=== PATIENT | female | born 1985 | race Hispanic/Latino ===

== ENCOUNTER 2024-07-09 13:14 | Outpatient (CLI) | payer OTHER, SELFPAY ==
--- NOTE | ~2024-07-09 | MMUS_ITS ---
EXAMINATION: MM diagnostic vance BI w daxa, US breast LT limited HISTORY: Breast pain TECHNIQUE: Additional 3-D tomosynthesis images of the breasts were performed and synthetic 2-D images were generated. CAD analysis was submitted and interpreted. High resolution Limited left breast ultr asound was performed. COMPARISON: None BREAST PARENCHYMAL COMPOSITION: Not dense: There are scattered areas of fibroglandular density. FINDINGS: MAMMOGRAPHIC FINDINGS: There is no mammographic evidence for malignancy in the right breast. There is a focal asymmetry in t he upper inner quadrant of the left breast, posterior third. ULTRASOUND: Limited left breast ultrasound: Normal heterogeneous echotexture without focal mass. No corresponding abnormality to the mammographic finding. IMPRESSION: 1. Focal left breast asymmetry upper inner quadrant of the left breast, posterior third. No sonograph ic correlate. This is likely benign focal asymmetric fibroglandular tissue or intramammary lymph node . 2. Recommend 6 month follow-up diagnostic left mammogram BI-RADS category 3, probably benign findings. Reviewed, dictated and finalized at location [facility] OUT CLERK AND SHELF STOCKER IMPRESSION: 1. Focal left breast asymmetry upper inner quadrant of the left breast, posteri or third. No sonographic correlate. This is likely benign focal asymmetric fibr oglandular tissue or intramammary lymph node. 2. Recommend 6 month follow-up diagnostic left mammogram BI-RADS category 3, probably benign findings.
--- OUTSIDE RECORDS SUMMARY | 2024-07-09 15:47 | XMS_ITS | Data Portability ---
Author Organization [facility] Address [address] [place] [address] Care Team Providers Care Butt Trimmer Name Role Phone GEENA CAMACHO Primary Care Provider [phone] Assessment No assessment recorded. Plan of Treatment Reminders Order Date Submit Date Provider Last Modified By Organization Details Last Modified Time Details Appointments ANY 15 2024 01:00P M DOMINGA LEOS Not available Not available Not available NEW PATIEN T 30 2024 10:45A M Bryn Meza MD Not available Not available Not available Lab C reacti ve protei n, QN, serum or plasma 2023 024 [facility], [address] [place] [address], [address], [place], [address], 05/10/2024 02:08:22 EMILY (antin uclear antibo dies) screen , serum 2023 024 [facility], [address] [place] [address], [address], [place], [address], 05/10/2024 02:08:19 erythr ocyte sedime ntatio n rate by zoë gren method 2023 024 [facility], [address] [place] [address], [address], [place], [address], 05/10/2024 02:08:21 CBC w/ auto diff 2023 024 [facility] SOTO, [address], [address], [place], [address], 05/08/2024 22:07:08 cultur e, urine 2023 024 [facility], [address], [address], [place], [address], 05/10/2024 02:08:22 urinal ysis, dipsti ck 2023 024 KEELY In-Office Order, Internal Use Only DO Not Attach Compendium DO Not Attach Compendium, Do Not Delete/merge, [id number] 05/07/2024 15:13:11 vitami n B12 + folate , serum or blood 2023 024 KEELY YOSTHAYDER, [address], [address], [place], [address], 04/11/2024 10:15:01 magnes ium, serum or plasma 2023 024 KEELY AMINCASSIE, [address], [address], [place], [address], 04/11/2024 08:31:26 vitami n D, 25-hyd sailaja, total, serum 2023 024 [facility], [facility] [address], [address], [place], [address], 04/11/2024 10:15:06 iron + total iron-b inding capaci ty (TIBC) , serum 2023 024 KEELY YOSTHAYDER, [address], [address], [place], [address], 04/11/2024 10:15:03 CBC w/ auto diff 2023 024 [facility], [address], [address], [place], [address], 04/11/2024 08:31:27 CMP, serum or plasma 2023 024 [facility], [address] [facility] [address], [address], [place], [address], 04/11/2024 08:31:24 TSH, ultra- sensit michael, serum 2023 024 [facility], [address] [facility] [address], [address], [place], [address], 04/11/2024 10:15:00 HbA1c (hemog lobin A1c), blood 2023 024 [facility], [address] [facility], [address], [place], [address], 04/11/2024 10:15:04 lipid panel, serum 2023 024 [facility], [address] [facility], [address], [place], [address], 04/11/2024 08:31:23 Referral breast center referr al 2024 025 Cody Rosas MD, [address] [facility], [address], [place], [address], 07/03/2024 15:26:[address] referr al - + EMILY, pain on R tempor al, recent miscar riage, + micros copic hematu [place] 2023 024 [email or web address] [facility] (Rheumatology ), [address], [place], [address], 05/24/2024 07:39:39 Procedures None record ed. Surgeries None record ed. Imaging MRI, brain, w/o contra st [address] ([facility]), [address] [place] [address] [address], [place], [address], 06/05/2024 08:01:53 Medication Orders clonaz epam 0.5 mg tablet 2023 [facility], [address] [place] [address], [address], 05/07/2024 19:32:44 Refres h Lacri- Lube 56.8 %-42.5 % eye ointme nt 2023 [facility], [address] [place] [address], [address], 04/18/2024 12:41:06 Patient TargetsNo targets recorded. Patient Instructions Encounter Date Encounter Id Patient Instructions Last Modified By Organization Details Last Modified Time 04/10/2024 [id number] A healthy lifestyle: care instructions [email or web address] Not available 04/10/2024 10:23:04 04/12/2024 [id number] Order Lubricant oint to left eye Use Naprosyn for pain May need CT of Orbits and sinuses May need ENT consult [email or web address] Not available 04/12/2024 14:09:10 04/24/2024 [id number] Refresh PM, 2-3 timed a day IF headaches recurs frequently go to PCP for further evaluation [email or web address] Not available 04/24/2024 15:38:31 06/18/2024 [id number] A healthy lifestyle: care instructions [email or web address] Not available 06/18/2024 14:51:37 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 for Referral 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 Referral for Anti-nuclear factor detected + EMILY, pain on R temporal, recent miscarriage, + microscopic hematuria Referring Physician: Geena Camacho, Tool Trouble Shooter, Encounter Date: 05/07/2024 Breast Center Referral for M astodynia of bilateral breasts Referring Physician: Luther Wood, TRANSPORT PILOT, Encounter Date: 06/18/2024 Results Created Date Observation Date Name Description Value Unit Range Abnormal Flag Note LastModifiedBy Organization Detail LastModifiedTime 04/10/20 24 04/11/2024 LIPID PANEL cholesterol, total 163 mg/dL 100-19 9 Not Available [facility] ([facility]) [address] [facility] [place], [address], 04/11/2024 08:31:23 04/10/20 24 04/11/2024 LIPID PANEL triglyceride s 125 mg/dL 0-149 Not Available [facility] ([facility]) [address] [facility] [place], [address], 04/11/2024 08:31:23 04/10/20 24 04/11/2024 LIPID PANEL HDL cholesterol 28 mg/dL >39 below low normal Not Available [facility] ([facility]) [address] [place], [address], 04/11/2024 08:31:23 04/10/20 24 04/11/2024 LIPID PANEL VLDL cholesterol loren 23 mg/dL 5-40 Not Available [facility] ([facility]) [address] [place], [address], 04/11/2024 08:31:23 04/10/20 24 04/11/2024 LIPID PANEL LDL chol calc ([facility]) 112 mg/dL 0-99 above high normal Not Available [facility] ([facility]) [address] [place], [address], 04/11/2024 08:31:23 04/10/20 24 04/11/2024 COMP. METAB OLIC PANEL (14) glucose 88 mg/dL 70-99 Not Available [facility] ([facility]) [address] [place], [address], 04/11/2024 08:31:24 04/10/20 24 04/11/2024 COMP. METAB OLIC PANEL (14) BUN 9 mg/dL 6-20 Not Available [facility] ([facility]) [address] [place], [address], 04/11/2024 08:31:24 04/10/20 24 04/11/2024 COMP. METAB OLIC PANEL (14) creatinine 0.45 mg/dL 0.57-1 .00 below low normal Not Available [facility] ([facility]) [address] [facility] [place], [address], 04/11/2024 08:31:24 04/10/20 24 04/11/2024 COMP. METAB OLIC PANEL (14) eGFR 127 mL/mi n/1.7 3 >59 Not Available [facility] ([facility]) [address] [facility] [place], [address], 04/11/2024 08:31:24 04/10/20 24 04/11/2024 COMP. METAB OLIC PANEL (14) BUN/creatini ne ratio 09 02- Not Available [facility] ([facility]) [address] [facility] [place], [address], 04/11/2024 08:31:24 04/10/20 24 04/11/2024 COMP. METAB OLIC PANEL (14) sodium 137 mmol/ L 134-14 4 Not Available [facility] ([facility]) [address] [facility] [place], [address], 04/11/2024 08:31:24 04/10/20 24 04/11/2024 COMP. METAB OLIC PANEL (14) potassium 4.2 mmol/ L 3.5-5. 2 Not Available [facility] ([facility]) [address] [facility] [place], [address], 04/11/2024 08:31:24 04/10/20 24 04/11/2024 COMP. METAB OLIC PANEL (14) chloride 103 mmol/ L 96-106 Not Available [facility] ([facility]) [address] [facility] [place], [address], 04/11/2024 08:31:24 04/10/20 24 04/11/2024 COMP. METAB OLIC PANEL (14) carbon dioxide, total 19 mmol/ L 20-29 below low normal Not Available [facility] ([facility]) [address] [place], [address], 04/11/2024 08:31:24 04/10/20 24 04/11/2024 COMP. METAB OLIC PANEL (14) calcium 9.2 mg/dL 8.7-10 .2 Not Available [facility] ([facility]) [address] [place], [address], 04/11/2024 08:31:24 04/10/20 24 04/11/2024 COMP. METAB OLIC PANEL (14) protein, total 7.6 g/dL 6.0-8. 5 Not Available [facility] ([facility]) [address] [place], [address], 04/11/2024 08:31:24 04/10/20 24 04/11/2024 COMP. METAB OLIC PANEL (14) albumin 4.3 g/dL 3.9-4. 9 Not Available [facility] ([facility]) [address] [place], [address], 04/11/2024 08:31:24 04/10/20 24 04/11/2024 COMP. METAB OLIC PANEL (14) globulin, total 3.3 g/dL 1.5-4. 5 Not Available [facility] ([facility]) [address] [facility] [place], [address], 04/11/2024 08:31:24 04/10/20 24 04/11/2024 COMP. METAB OLIC PANEL (14) bilirubin, total 0.2 mg/dL 0.0-1. 2 Not Available [facility] ([facility]) [address] [facility] [place], [address], 04/11/2024 08:31:24 04/10/20 24 04/11/2024 COMP. METAB OLIC PANEL (14) alkaline phosphatase 75 IU/L 44-121 Not Available [facility]) [address] [facility] [place], [address], 04/11/2024 08:31:24 04/10/20 24 04/11/2024 COMP. METAB OLIC PANEL (14) AST (SGOT) 16 IU/L 0-40 Not Available [facility] ([facility]) [address] [facility] [place], [address], 04/11/2024 08:31:24 04/10/20 24 04/11/2024 COMP. METAB OLIC PANEL (14) ALT (SGPT) 21 IU/L 0-32 Not Available [facility] ([facility]) [address] [facility] [place], [address], 04/11/2024 08:31:24 04/10/20 24 04/11/2024 MAGNE SIUM magnesium 2.0 mg/dL 1.6-2. 3 Not Available [facility] ([facility]) [address] [place], [address], 04/11/2024 08:31:26 04/10/20 24 04/11/2024 CBC WITH DIFFE RENTI AL/PL ATELE T WBC 13.7 x10e3 /uL 3.4-10 .8 above high normal Eff ectiv e Decem rickey 2023 [place] [id number] 5 WBC will be made* * non-o rdera ble as a stand -cindy e order code. Not Available [facility] ([facility]) [address] [place], [address], 04/11/2024 08:31:27 04/10/20 24 04/11/2024 CBC WITH DIFFE RENTI AL/PL ATELE T RBC 4.63 x10e6 /uL 3.77-5 .28 Not Available [facility] ([facility]) [address] [place], [address], 04/11/2024 08:31:27 04/10/20 24 04/11/2024 CBC WITH DIFFE RENTI AL/PL ATELE T hemoglobin 13.5 g/dL 11.1-1 5.9 Not Available [facility] ([facility]) [address] [facility], [place], [address], 04/11/2024 08:31:27 04/10/20 24 04/11/2024 CBC WITH DIFFE RENTI AL/PL ATELE T hematocrit 42.1 % 34.0-4 6.6 Not Available [facility] ([facility]) [address] [place], [address], 04/11/2024 08:31:27 04/10/20 24 04/11/2024 CBC WITH DIFFE RENTI AL/PL ATELE T MCV 91 fL 79-97 Not Available [facility] ([facility]) [address] [facility], [place], [address], 04/11/2024 08:31:27 04/10/20 24 04/11/2024 CBC WITH DIFFE RENTI AL/PL ATELE T MCH 29.2 pg 26.6-3 3.0 Not Available [facility] ([facility]) [address] [place], [address], 04/11/2024 08:31:27 04/10/20 24 04/11/2024 CBC WITH DIFFE RENTI AL/PL ATELE T MCHC 32.1 g/dL 31.5-3 5.7 Not Available [facility] ([facility]) [address] [place], [address], 04/11/2024 08:31:27 04/10/20 24 04/11/2024 CBC WITH DIFFE RENTI AL/PL ATELE T RDW 12.3 % 11.7-1 5.4 Not Available [facility] ([facility]) [address] [place], [address], 04/11/2024 08:31:27 04/10/20 24 04/11/2024 CBC WITH DIFFE RENTI AL/PL ATELE T platelets 401 x10e3 /uL 150-45 0 Not Available [facility] ([facility]) [address] [facility], [place], [address], 04/11/2024 08:31:27 04/10/20 24 04/11/2024 CBC WITH DIFFE RENTI AL/PL ATELE T neutrophils 74 % notest ab. Not Available [facility] ([facility]) [address] [facility], [place], [address], 04/11/2024 08:31:27 04/10/20 24 04/11/2024 CBC WITH DIFFE RENTI AL/PL ATELE T lymphs 20 % notest ab. Not Available [facility] ([facility]) [address] [facility], [place], [address], 04/11/2024 08:31:27 04/10/20 24 04/11/2024 CBC WITH DIFFE RENTI AL/PL ATELE T monocytes 5 % notest ab. Not Available [facility] ([facility]) [address] [facility], [place], [address], 04/11/2024 08:31:27 04/10/20 24 04/11/2024 CBC WITH DIFFE RENTI AL/PL ATELE T eos 1 % notest ab. Not Available [facility] ([facility]) [address] [facility], [place], [address], 04/11/2024 08:31:27 04/10/20 24 04/11/2024 CBC WITH DIFFE RENTI AL/PL ATELE T basos 0 % notest ab. Not Available [facility] ([facility]) [address] [facility], [place], [address], 04/11/2024 08:31:27 04/10/20 24 04/11/2024 CBC WITH DIFFE RENTI AL/PL ATELE T neutrophils (absolute) 10.0 x10e3 /uL 1.4-7. 0 above high normal Not Available [facility] ([facility]) [address] [place], [address], 04/11/2024 08:31:27 04/10/20 24 04/11/2024 CBC WITH DIFFE RENTI AL/PL ATELE T lymphs (absolute) 2.8 x10e3 /uL 0.7-3. 1 Not Available [facility] ([facility]) [address] [place], [address], 04/11/2024 08:31:27 04/10/20 24 04/11/2024 CBC WITH DIFFE RENTI AL/PL ATELE T monocytes(ab solute) 0.7 x10e3 /uL 0.1-0. 9 Not Available [facility] ([facility]) [address] [place], [address], 04/11/2024 08:31:27 04/10/20 24 04/11/2024 CBC WITH DIFFE RENTI AL/PL ATELE T eos (absolute) 0.2 x10e3 /uL 0.0-0. 4 Not Available [facility] ([facility]) [address] [place], [address], 04/11/2024 08:31:27 04/10/20 24 04/11/2024 CBC WITH DIFFE RENTI AL/PL ATELE T baso (absolute) 0.1 x10e3 /uL 0.0-0. 2 Not Available [facility] ([facility]) [address] [place], [address], 04/11/2024 08:31:27 04/10/20 24 04/11/2024 CBC WITH DIFFE RENTI AL/PL ATELE T immature granulocytes 0 % notest ab. Not Available [facility] ([facility]) [address] [place], [address], 04/11/2024 08:31:27 04/10/20 24 04/11/2024 CBC WITH DIFFE RENTI AL/PL ATELE T immature grans (abs) 0.0 x10e3 /uL 0.0-0. 1 Not Available [facility] ([facility]) [address] [facility], [place], [address], 04/11/2024 08:31:27 04/10/20 24 04/11/2024 TSH RFX ON ABNOR MAL TO FREE T4 TSH 1.750 uIU/m L 0.450- 4.500 Not Available [facility] ([facility]) [address] [facility], [place], [address], 04/11/2024 10:15:00 04/10/20 24 04/11/2024 VITAM IN B12 AND FOLAT E vitamin B12 876 pg/mL 232-12 45 Not Available [facility] ([facility]) [address] [facility], [place], [address], 04/11/2024 10:15:01 04/10/20 24 04/11/2024 VITAM IN B12 AND FOLAT E folate (folic acid), serum 13.7 NG/mL >3.0 A serum folat e guevara ntrat ion of less than 3.1 ng/mL is consi dered to repre sent clini loren defic iency . Not Available [facility] ([facility]) [address] [facility], [place], [address], 04/11/2024 10:15:01 04/10/20 24 04/11/2024 IRON AND TIBC iron bind.cap.(TI BC) 309 ug/dL 250-45 0 Not Available [facility] ([facility]) [address] [facility], [place], [address], 04/11/2024 10:15:03 04/10/20 24 04/11/2024 IRON AND TIBC UIBC 246 ug/dL 131-42 5 Not Available [facility] ([facility]) [address] [facility], [place], [address], 04/11/2024 10:15:03 04/10/20 24 04/11/2024 IRON AND TIBC iron 63 ug/dL 27-159 Not Available [facility] ([facility]) [address] [facility], [place], [address], 04/11/2024 10:15:03 04/10/20 24 04/11/2024 IRON AND TIBC iron saturation 20 % 15-55 Not Available [facility] ([facility]) [address] [facility], [place], [address], 04/11/2024 10:15:03 04/10/20 24 04/11/2024 HEMOG LOBIN A1C hemoglobin A1C 5.8 % 4.8-5. 6 above high normal Predi abete s: 5.7 - 6.4 Diabe alvino: >6.4 Glyce mickey contr ol for adult s with diabe alvino: <7.0 Not Available [facility] ([facility]) [address] [facility], [place], [address], 04/11/2024 10:15:04 04/10/20 24 04/11/2024 VITAM IN D, 25-HY DROXY vitamin D, 25-hydroxy 29.3 NG/mL 30.0-1 00.0 below low normal Vitam in D defic iency has been defin ed by the Insti tute of Medic ine and an Endoc rine Socie ty pract ice guide line as a level of serum 25-OH vitam in D less than 20 ng/mL (1,2) . The Endoc rine Socie ty went on to furth er defin e vitam in D insuf ficie ncy as a level betwe en 21 and 29 ng/mL (2). 1. IOM (Inst itute of Medic ine). 2010. Dieta ry refer ence intak es for calci um and D. Eduardo cornell [place]: [facility] Press . 2. Margot k MF, Fidelia vyas [place], [place] off-F errar i [place]AVAR[place], et al. Evalu ation , treat ment, and preve ntion of vitam in D defic iency : an Endoc rine Socie ty clini loren pract ice guide line. JCEM. 2010; 96(7) :1911 -30. Not Available [facility] ([facility]) [address] [facility], [place], [address], 04/11/2024 10:15:06 05/07/20 24 05/08/2024 CBC WITH DIFFE RENTI AL/PL ATELE T WBC 9.4 x10e3 /uL 3.4-10 .8 Not Available [facility] [address] [place], [address], 05/08/2024 22:07:08 05/07/20 24 05/08/2024 CBC WITH DIFFE RENTI AL/PL ATELE T RBC 4.39 x10e6 /uL 3.77-5 .28 Not Available [facility] [address] [facility], [place], [address], 05/08/2024 22:07:08 05/07/20 24 05/08/2024 CBC WITH DIFFE RENTI AL/PL ATELE T hemoglobin 12.9 g/dL 11.1-1 5.9 Not Available [facility] [address] [place], [address], 05/08/2024 22:07:08 05/07/20 24 05/08/2024 CBC WITH DIFFE RENTI AL/PL ATELE T hematocrit 42.7 % 34.0-4 6.6 Not Available [facility] [address] [place], [address], 05/08/2024 22:07:08 05/07/20 24 05/08/2024 CBC WITH DIFFE RENTI AL/PL ATELE T MCV 97 fL 79-97 Not Available [facility] [address] [place], [address], 05/08/2024 22:07:08 05/07/20 24 05/08/2024 CBC WITH DIFFE RENTI AL/PL ATELE T MCH 29.4 pg 26.6-3 3.0 Not Available [facility] [address] [place], [address], 05/08/2024 22:07:08 05/07/20 24 05/08/2024 CBC WITH DIFFE RENTI AL/PL ATELE T MCHC 30.2 g/dL 31.5-3 5.7 below low normal Not Available [facility] [address] [place], [address], 05/08/2024 22:07:08 05/07/20 24 05/08/2024 CBC WITH DIFFE RENTI AL/PL ATELE T RDW 13.2 % 11.5-1 4.5 Not Available [facility] [address] [place], [address], 05/08/2024 22:07:08 05/07/20 24 05/08/2024 CBC WITH DIFFE RENTI AL/PL ATELE T platelets 367 x10e3 /uL 150-45 0 Not Available [facility] [address] [place], [address], 05/08/2024 22:07:08 05/07/20 24 05/08/2024 CBC WITH DIFFE RENTI AL/PL ATELE T neutrophils 73 % notest b. Not Available [facility] [address] [place], [address], 05/08/2024 22:07:08 05/07/20 24 05/08/2024 CBC WITH DIFFE RENTI AL/PL ATELE T lymphs 21 % notest b. Not Available [facility] [address] [place], [address], 05/08/2024 22:07:08 05/07/20 24 05/08/2024 CBC WITH DIFFE RENTI AL/PL ATELE T monocytes 4 % notest b. Not Available [facility] [address] [place] [address], [address], 05/08/2024 22:07:08 05/07/20 24 05/08/2024 CBC WITH DIFFE RENTI AL/PL ATELE T eos 2 % notest b. Not Available [facility] [address] [place] [address], [address], 05/08/2024 22:07:08 05/07/20 24 05/08/2024 CBC WITH DIFFE RENTI AL/PL ATELE T basos 1 % notest b. Not Available [facility] [address] [place] [address], [address], 05/08/2024 22:07:08 05/07/20 24 05/08/2024 CBC WITH DIFFE RENTI AL/PL ATELE T neutrophils (absolute) 6.9 x10e3 /uL 1.4-7. 0 Not Available [facility] [address] [place] [address], [address], 05/08/2024 22:07:08 05/07/20 24 05/08/2024 CBC WITH DIFFE RENTI AL/PL ATELE T lymphs (absolute) 2.0 x10e3 /uL 0.7-3. 1 Not Available [facility] [address] [place] [address], [address], 05/08/2024 22:07:08 05/07/20 24 05/08/2024 CBC WITH DIFFE RENTI AL/PL ATELE T monocytes(ab solute) 0.3 x10e3 /uL 0.1-0. 9 Not Available [facility] [address] [place] [address], [address], 05/08/2024 22:07:08 05/07/20 24 05/08/2024 CBC WITH DIFFE RENTI AL/PL ATELE T eos (absolute) 0.2 x10e3 /uL 0.0-0. 4 Not Available [facility] [address] [place], [address], 05/08/2024 22:07:08 05/07/20 24 05/08/2024 CBC WITH DIFFE RENTI AL/PL ATELE T baso (absolute) 0.1 x10e3 /uL 0.0-0. 2 Not Available [facility] [address] [place], [address], 05/08/2024 22:07:08 05/07/20 24 05/08/2024 CBC WITH DIFFE RENTI AL/PL ATELE T immature granulocytes 0.2 % notest b. Not Available [facility] [address] [place], [address], 05/08/2024 22:07:08 05/07/20 24 05/08/2024 CBC WITH DIFFE RENTI AL/PL ATELE T immature grans (abs) 0.0 x10e3 /uL 0.0-0. 1 Not Available [facility] [address] [place], [address], 05/08/2024 22:07:08 05/07/20 24 05/08/2024 CBC WITH DIFFE RENTI AL/PL ATELE T NRBC 0 % 0-0 Not Available [facility] [address] [place], [address], 05/08/2024 22:07:08 05/07/20 24 05/09/2024 SPECI MEN STATU S REPOR T specimen status report TNP Test not perfo rmed. No laven uzair top tube submi tted. TEST: [id number] Sedim entat ion Rate- Weste rgren Not Available [facility] ([facility]) [address] [facility], [place], [address], 05/10/2024 02:08:19 05/07/20 24 05/09/2024 ANTIN UCLEA R AB MULTI PLEX RFX 9 EMILY direct POSITI VE negati ve abnormal Not Available [facility] ([facility]) [address] [facility], [place], [address], 05/10/2024 02:08:19 05/07/20 24 05/09/2024 ANTIN UCLEA R AB MULTI PLEX RFX 9 anti-DNA (ds) Ab qn <1 IU/mL 0-9 Negat michael <5 Equiv ocal 5 - 9 Posit michael >9 Not Available [facility] ([facility]) [address] [facility], [place], [address], 05/10/2024 02:08:19 05/07/20 24 05/09/2024 ANTIN UCLEA R AB MULTI PLEX RFX 9 station engineer chief antibodies 2.1 ai 0.0-0. 9 above high normal Not Available [facility] ([facility]) [address] [facility], [place], [address], 05/10/2024 02:08:19 05/07/20 24 05/09/2024 ANTIN UCLEA R AB MULTI PLEX RFX 9 george antibodies <0.2 ai 0.0-0. 9 Not Available [facility] ([facility]) [address] [facility], [place], [address], 05/10/2024 02:08:19 05/07/20 24 05/09/2024 ANTIN UCLEA R AB MULTI PLEX RFX 9 antisclerode rma-70 antibodies <0.2 Not Available [facility] ([facility]) [address] [place], [address], 05/10/2024 02:08:19 05/07/20 24 05/09/2024 ANTIN UCLEA R AB MULTI PLEX RFX 9 sjogren's anti-ss-A <0.2 Not Available [facility] ([facility]) [address] [place], [address], 05/10/2024 02:08:19 05/07/20 24 05/09/2024 ANTIN UCLEA R AB MULTI PLEX RFX 9 sjogren's anti-ss-B <0.2 Not Available [facility] ([facility]) [address] [facility], [place], [address], 05/10/2024 02:08:19 05/07/20 24 05/09/2024 ANTIN UCLEA R AB MULTI PLEX RFX 9 antichromati n antibodies <0.2 Not Available [facility] ([facility]) [address], [place], [id number], 05/10/2024 02:08:19 05/07/20 24 05/09/2024 ANTIN UCLEA R AB MULTI PLEX RFX 9 anti-june-1 <0.2 Not Available [facility] ([facility]) [address], [place], [id number], 05/10/2024 02:08:19 05/07/20 24 05/09/2024 ANTIN UCLEA R AB MULTI PLEX RFX 9 anti-centrom ere B antibodies <0.2 Not Available [facility] ([facility]) [address], [place], [id number], 05/10/2024 02:08:19 05/07/20 24 05/09/2024 ANTIN UCLEA R AB MULTI PLEX RFX 9 see below: COMMEN T [employer] n ----- ----- ----- ----- ----- ----- ----- ----- ----- ----- ----- ----- Condi tion Frequ ency ----- ----- ----- ----- - ----- ----- ----- ----- ---- ----- ---- Antin uclea r Antib niurka, SLE, mixed conne ctive Direc t (EMILY- D) tissu e disea ses ----- ----- ----- ----- - ----- ----- ----- ----- ---- ----- ---- dsDNA SLE 40 - 60% ----- ----- ----- ----- - ----- ----- ----- ----- ---- ----- ---- Chrom atin Drug induc ed SLE 90% SLE 48 - 97% ----- ----- ----- ----- - ----- ----- ----- ----- ---- ----- ---- SSA (Ro) SLE 25 - 35% Sjogr en's Syndr ome 40 - 70% Neona cahrles Lupus 100% ----- ----- ----- ----- - ----- ----- ----- ----- ---- ----- ---- SSB (La) SLE 10% Sjogr en's Syndr ome 30% ----- ----- ----- ----- - ----- ----- ----- ----- --- ----- ---- Sm (anti -Yovany h) SLE 15 - 30% ----- ----- ----- ----- - ----- ----- ----- ----- --- ----- ---- GENDER STUDIES PROFESSOR Mixed Conne ctive Tissu e Disea se 95% (U1 nRNP, SLE 30 - 50% anti- ribon ucleo prote in) Polym yosit is and/o r Manley tomyo sitis 20% ----- ----- ----- ----- - ----- ----- ----- ----- ---- ----- ---- Scl-7 0 (anti DNA Scler oderm a (diff use) 20 - 35% topoi marsha ase) Crest 13% ----- ----- ----- ----- - ----- ----- ----- ----- ---- ----- ---- June-1 Polym nereida is and/o r Manley tomyo sitis 20 - 40% ----- ----- ----- ----- - ----- ----- ----- ----- ---- ----- ---- Centr omere B Scler oderm a - Crest varia nt 80% Not Available [facility] ([facility]) [address] [place], [address], 05/10/2024 02:08:19 05/07/20 24 05/09/2024 SEDIM ENTAT ION RATE- WESTE RGREN sedimentatio n rate-westerg madison - mm/HR Test not perfo rmed. No laven uzair top tube submi tted. Not Available [facility] ([facility]) [address] [place], [address], 05/10/2024 02:08:21 05/07/20 24 05/09/2024 C-GUERA CTIVE PROTE IN, QUANT C-reactive protein, quant 2 mg/L 0-10 Not Available [facility] ([facility]) [address] [place], [address], 05/10/2024 02:08:21 05/07/20 24 05/10/2024 URINE CULTU REISHAAN NE urine culture, routine FINAL REPORT Not Available [facility] ([facility]) [address] [place], [address], 05/10/2024 02:08:22 05/07/20 24 05/10/2024 URINE CULTU REISHAAN NE result 1 COMMEN T Cultu re shows less than 10,00 0 colon y formi ng units of bacte [place] per keshav liter of urine . This colon y count is not gener ally consi dered to be clini forest signi colleen t. Not Available [facility] ([facility]) [address] [facility], [place], [address], 05/10/2024 02:08:22 05/07/20 24 05/07/2024 urina lysis , dipst ick Leukocytes Negati ve Not Available In-Office Order Internal Use Only DO Not Attach Compendium DO Not Attach Compendium, Do Not Delete/merge, [id number] 05/07/2024 14:29:16 05/07/20 24 05/07/2024 urina lysis , dipst ick Nitrite negati ve Not Available In-Office Order Internal Use Only DO Not Attach Compendium DO Not Attach Compendium, Do Not Delete/merge, [id number] 05/07/2024 14:29:16 05/07/20 24 05/07/2024 urina lysis , dipst ick Urobilinogen .2 Not Available In-Of fice Order Internal Use Only DO Not Attach Compendium DO Not Attach Compendium, Do Not Delete/merge, [id number] 05/07/2024 14:29:16 05/07/20 24 05/07/2024 urina lysis , dipst ick Protein Negati ve Not Available In-Office Order Internal Use Only DO Not Attach Compendium DO Not Attach Compendium, Do Not Delete/merge, [id number] 05/07/2024 14:29:16 05/07/20 24 05/07/2024 urina lysis , dipst ick pH 7.5 Not Available In-Office Order Internal Use Only DO Not Attach Compendium DO Not Attach Compendium, Do Not Delete/merge, [id number] 05/07/2024 14:29:16 05/07/20 24 05/07/2024 urina lysis , dipst ick Blood Non-He molyze d: Trace Not Available In-Office Order Internal Use Only DO Not Attach Compendium DO Not Attach Compendium, Do Not Delete/merge, [id number] 05/07/2024 14:29:16 05/07/20 24 05/07/2024 urina lysis , dipst ick Specific [place] 1.005 Not Available In-Off ice Order Internal Use Only DO Not Attach Compendium DO Not Attach Compendium, Do Not Delete/merge, [id number] 05/07/2024 14:29:16 05/07/20 24 05/07/2024 urina lysis , dipst ick Ketone Trace Not Available In-Office Order Internal Use Only DO Not Attach Compendium DO Not Attach Compendium, Do Not Delete/merge, [id number] 05/07/2024 14:29:16 05/07/20 24 05/07/2024 urina lysis , dipst ick Bilirubin Negati ve Not Available In-Office Order Internal Use Only DO Not Attach Compendium DO Not Attach Compendium, Do Not Delete/merge, [id number] 05/07/2024 14:29:16 05/07/20 24 05/07/2024 urina lysis , dipst ick Glucose Negati ve Not Available In-Office Order Internal Use Only DO Not Attach Compendium DO Not Attach Compendium, Do Not Delete/merge, [id number] 05/07/2024 14:29:16 05/07/20 24 05/07/2024 urina lysis , dipst ick Appearance Clear Not Available In-Offi ce Order Internal Use Only DO Not Attach Compendium DO Not Attach Compendium, Do Not Delete/merge, [id number] 05/07/2024 14:29:16 05/07/20 24 05/07/2024 urina lysis , dipst ick Color Yellow Not Available In-Office Order Internal Use Only DO Not Attach Compendium DO Not Attach Compendium, Do Not Delete/merge, [id number] 05/07/2024 14:29:16 07/09/19 25 07/09/2024 imagi ng/di agnos tic resul t No observ ation record ed. [facility] [address], [place], [address], 07/09/2024 15:39:09 Result Notes None recorded. Problems Name Problem SNOMED Code Status Onset Date Resolution Date Notes Provider Name and Address Organization Details Recorded Time Idiopathi c urticaria 04145601 Active 2022 DOMINGA LEOS Attn: Mat g,[address] [facility], [place], [address], [facility] 3 14:43:49 Allergy to shellfish 291752373 Active 2022 Geena Millard Cortez null, [place] - [facility] 3 11:23:13 47314658 Completed 202302/21/2024 Geena Millard Cortez null, [place] - [facility] 4 14:47:34 Gastritis 1257186 Active 2023 Ebony Santos MD Attn: Mat anaya,[address] [facility], [place], [address], [facility] 4 21:05:02 Mastodyni a of bilateral breasts 915099256685 16948 Active 2023 Ebony Santos MD Attn: Mat anaya,[address] [facility], [place], [address], [facility] 4 21:05:14 Amenorrhe a 42292748 Active 2023 Ebony Santos MD Attn: Mat anaya,[address] [facility], [place], [address], [place] - [facility] 4 21:05:26 Pain due to varicose veins of lower extremity 840905083 Active 2023 GISSELLE Sandoval Attn: Mat anaya,[address] [facility], [place], [address], [place] - [facility] 4 14:35:41 Pain due to varicose veins of lower extremity 617263882 Completed 2023 GISSELLE Sandoval Attn: Mat anaya,[address] [facility], [place], [address], [place] - [facility] 4 14:35:41 Problem Notes None recorded. Procedures Surgical History Date Name Laterality Status Provider Name and Address Organization Details Recorded Time 04/19/2023 Date of Last Pap Smear completed Geena Millard Cortez [place] - [facility] 04/19/2023 11:22:30 Imaging Results Imaging Date Name Status LastModified by Organiz ation Details LastModified Time 07/09/2024 imaging/diagn ostic result active [facility] [address], [place], [address], 07/09/2024 15:39:09 Procedure Notes None recorded. Medical Equipment None Reported. Allergies Allergen ID Allergen Name Allergen Category Reaction Reaction Severity Criticality Documentation Date Start Date Code Code System Note Provider Name and Address Organization Details Recorded Time 261698 scallop allergeni c extract food Not available Not available Not available 09/14/2023 08543 6 RxNorm Not Available Not Available Not Available 144491 shrimp allergeni c extract food Not available Not available Not available 09/14/2023 44390 2 RxNorm Not Available Not Available Not Available 384875 prednison e medicatio n Not available Not available Not available 11/10/2023 8640 RxNorm gives her a lot of anxie ty Not Available Not Available Not Available Medications Name Sig Start Date Stop Date Status Note LastModified by Organization Details LastModified Time cyclobenzap rine 10 mg tablet TAKE 1 TABLET BY MOUTH TWICE DAILY NEEDED FOR MUSCLE SPASM active Not Available Not Available No t Available cetirizine 10 mg tablet Take 1 tablet every day by oral route. 05/10 completed Not Available Not Available Not Available sucralfate 1 gram tablet Take 1 tablet 4 times a day by oral route for 21 days. 11/09 completed Not Available Not Available Not Available metronidazo le 0.75 % (37.5 mg/5 gram) vaginal gel Insert 1 applicato rful every day by vaginal route for 5 days. 07/22 completed Not Available Not Available Not Available clonazepam 0.5 mg tablet TAKE 1 TABLET BY MOUTH TWICE DAILY NEEDED FOR 14 DAYS active Not Available Not Available No t Available ketorolac 10 mg tablet TAKE 1 TABLET BY MOUTH EVERY 6 HOURS NEEDED FOR PAIN active Not Available Not Available No t Available azelastine 137 mcg (0.1 %) nasal spray INSTILL TWO SPRAYS IN EACH NOSTRIL TWO TIMES A DAY 01/18 completed Not Available Not Available Not Available Pepcid 20 mg tablet Take 1 tablet twice a day by oral route for 30 days. 11/20 completed Not Available Not Available Not Available methylpredn isolone 4 mg tablets in a dose pack TAKE DIRECTED 04/19 completed Not Available Not Available Not Available cefdinir 300 mg capsule TAKE ONE CAPSULE BY MOUTH EVERY TWELVE HOURS 05/31 completed Not Available Not Available Not Available amoxicillin 875 mg-potassiu m clavulanate 125 mg tablet Take 1 tablet every 12 hours by oral route. 05/10 completed Not Available Not Available Not Available Pepcid active Not Available Not Availa ble Not Available Claritin 01/18 completed Not Available Not Available Not Available 28 mg iron-800 mcg tablet Take 1 tablet every day by oral route. 04/10 completed Not Available Not Available Not Available Refresh Lacri-Lube 56.8 %-42.5 % eye ointment APPLY TO AFFECTED EYE(S) THREE TIMES DAILY DIRECTED active Not Available Not Available No t Available Flonase Allergy Relief 50 mcg/actuati on nasal spray,suspe nsion [place] 1 spray every day by intranasa l route. 11/20 completed Not Available Not Available Not Available Vitals Date Recorded Body height Body mass index (BMI) Body weight Oxygen saturation Oxygen saturation in Arterial blood by Pulse oximetry Systolic blood pressure Diastolic blood pressure Provider Name and Address Organization Details Last Updated DateTime 4 147.32 cm 35.1 kg/m2 70031.5 2 g 99 % 99 % 125 mm[Hg] 65 mm[Hg] Naz Garcia [facility] 4 09:34:04 Date Recorded Heart rate Provider Name an d Address Organization Details Last Updated DateTime 04/10/2024 100 /min Jah LEOS Attn: Accounting [facility], [place], [address], [facility] 04/10/2024 10:16:29 Date Recorded Body height Pain severity - 0-10 verbal numeric rating [Score] - Reported Body temperature Body mass index (BMI) Body weight Heart rate Systolic blood pressure Diastolic blood pressure Provider Name and Address Organization Details Last Updated DateTime 4 147.32 cm 8 97.5 [degF] 35.4 kg/m2 44171.5 5 g 118 /min 138 mm[Hg] 89 mm[Hg] Kaycee Ngo MA [facility] 4 09:50:35 Date Recorded Body height Body temperature Pain severity - 0-10 verbal numeric rating [Score] - Reported Body mass index (BMI) Body weight Heart rate Systolic blood pressure Diastolic blood pressure Provider Name and Address Organization Details Last Updated DateTime 4 147.32 cm 97.5 [degF] 0 34.4 kg/m2 82883.5 9 g 111 /min 127 mm[Hg] 82 mm[Hg] Kaycee Ngo MA [facility] 4 15:21:08 Date Recorded Body height Body mass index (BMI) Body weight Heart rate Oxygen saturation Oxygen saturation in Arterial blood by Pulse oximetry Provider Name and Address Organization Details Last Updated DateTime 4 147.32 cm 34.1 kg/m2 54294.5 6 g 125 /min 97 % 97 % Naz Garcia [facility] 4 14:16:45 Date Recorded Systolic blood pressure Diastolic blood pressure Provider Name and Address Organization Details Last Updated DateTime 05/07/2024 133 mm[Hg] 81 mm[Hg] DOMINGA LEOS Attn: Accounting[address] [place], [address], [facility] 05/14/2024 16:36:50 Date Recorded Body height Body mass index (BMI) Body weight Heart rate Systolic blood pressure Diastolic blood pressure Provider Name and Address Organization Details Last Updated DateTime 5 147.32 cm 33 kg/m2 46023.8 8 g 98 /min 145 mm[Hg] 90 mm[Hg] Geena Toro [facility] 5 14:16:09 Social History Question Answer Notes LastModified by Organizat ion Details LastModified Time Tobacco Smoking Status Never Smoker Not Available [employer] 03/25/2020 03:43:25 Do You Have An Advance Directive? No Information not available 05/10/2022 What Is Your Level Of Alcohol Consumption? Occasional [id number] Information not available 03/25/2020 What Is Your Level Of Caffeine Consumption? Occasional [id number] Information not available 03/25/2020 How Much Tobacco Do You Chew? None [id number] Information not available 03/25/2020 In The 14 Days Before Symptom Onset, Have You Had Close Contact With A Laboratory-confir med COVID-19 While That Case Was Ill? No Information not available 05/10/2022 In The 14 Days Before Symptom Onset, Have You Had Close Contact With A Person Who Is Under Investigation For COVID-19 While That Person Was Ill? No Information not available 05/10/2022 Have You Been To An Area Known To Be High Risk For COVID-19? 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 REGULAR [id number] Information not available 03/25/2020 Which Illicit Or Recreational Drugs Have You Used? N/a [id number] Information not available 03/25/2020 Do You Or Have You Ever Used E-cigarettes Or Vape? 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 No [email or web address] Information no t available 06/18/2024 Hard Of Hearing Or Deaf In One Or Both Ears? No Information not available 07/09/2019 Legally Blind In One Or Both Eyes? No Information no t available 07/09/2019 Live Alone Or With Others? With Others Information not available 07/09/2019 What Was The Date Of Your Most Recent Tobacco Screening? 06/18/2024 [email or web address] Information not available 06/18/2024 How Many Children Do You Have? 0 [id number] Information not available 03/25/2020 Do You Use Protection During Sex? No [id number] Information not available 03/25/2020 Do You Use Your Seat Belt Or Car Seat Routinely? Yes [email or web address] Information not available 06/18/2024 Seat Belts Used Routinely Yes Information not available 07/09/2019 Are You Sexually Active? Yes [id number] Information not available 03/25/2020 Smoke Alarm In Home Yes Information not available 07/09/2019 Do You Have Smoke And Carbon Monoxide Detectors In Your Home? Yes [email or web address] Information not available 01/18/2023 Are You Passively Exposed To Smoke? No Information no t available 07/09/2019 Do You Or Have You Ever Used Smokeless Tobacco? Never Used Smokeless Tobacco [id number] Information not available 03/25/2020 How Much Tobacco Do You Smoke? No [id number] Information not available 03/25/2020 General Stress Level Low Information not available 07/09/2019 Do You Feel Stressed (tense, Restless, Nervous, Or Anxious, Or Unable To Sleep At Night)? [id number] [email or web address] Information not available 06/18/2024 Do You Use Any Illicit Or Recreational Drugs? No [email or web address] Information not available 06/18/2024 Do You Use Sunscreen Routinely? Yes [id number] Information not available 03/25/2020 Has Tobacco Cessation Counseling Been Provided? No [email or web address] Information not available 09/14/2023 On What Date Was Tobacco Cessation Counseling Provided? 04/24/2024 [email or web address] Information not available 04/24/2024 Do You Or Have You Ever Used Any Other Forms Of Tobacco Or Nicotine? No [email or web address] Information not available 08/30/2023 Sex: Female Functional Status Question Answer Note LastModified by Organization D etails LastModified Time Are you able to care for yourself? Yes [id number] Information not available 03/25/2020 What is your exercise level? Moderate [id number] Information not available 03/25/2020 Mental Status None recorded. Family History Relationship Description Onset Age of this Age Resolved Age Notes LastModified by Organization Details LastModified Time Father No current problems or disability Not available 07/09 10:41:10 Mother No current problems or disability Not available 07/09 10:41:10 Medical History Condition Response Coronary Artery Disease N Gout N Anxiety/Depression N Other Y Atrial Fibrillation N High Blood Pressure N Blood Transfusion N Hernia N Depression N COPD N Blood Clots N Pacemaker N Anxiety Disorder N Muscle, Joint, or Bone Problems N Arthritis N Blood Clot N Acid Reflux (GERD) N Cancer N Stroke N High Cholesterol N Liver Disease N Rheumatoid Arthritis N Headaches N Kidney Disease N Heart Problems N Migraines N Thyroid Problems N Kidney or Bladder Problems N GI Problems N Skin Problems N Anemia N Heart Attack ([place]) N Ulcers N Diabetes N Bleeding Disorder N Seizures/Epilepsy N Tuberculosis N AIDS/HIV N Asthma N Allergies Y Hepatitis N Hypertension N Heart Failure N Osteoporosis N Gynecological History Statement/Question Response Abnormal Pap N Flow Heavy STIs/STDs N HPV Vaccine N Duration of Flow (days) 4 Age at Menarche 11 Current Control Method None Sexually Active? Y Menses Monthly Y Date of Last Pap Smear 04/19/2023 Sexual Problems? N LMP Approximate Obstetrics History GPAL:G 1 P 0 0 1 0 Type Value Multiple Births 0 Full Term 0 Induced 0 Spontaneous 1 Premature 0 Living 0 Ectopics 0 Total 1 Immunizations Vaccine Type Date Status Note Provider Nam e and Address Organization Details Recorded Time Tdap 04/10/2024 completed DOMINGA LEOS Attn: Accounting[address] [place], [address], [facility] 04/10/2024 10:16:29 Past Encounters Encounter ID Performer Location Encounter Start Date Encounter Closed Date Diagnosis/Indication Diagnosis SNOMED-CT Code Diagnosis ICD10 Code Diagnosis Note [id number] DOMINGA LEOS [facility] [address] [place] [address] 07/09/2019 10:07:58 07/10/2019 09:59:11 Adult health examination 490800829 Z00.00 Patient presents for physical. normal exam. She is encouraged to continue her healthy diet changed including increased intake of water and vegetables . Patient denies depression anxiety. Vitals WNL. - discussed portion sizes- discussed 30 mins excercise 5x week- schedule pap as it has been 5 years, allpaps in past have been normal. [id number] DOMINGA LEOS [facility] [address] [place] [address] 10/23/2019 12:16:17 10/23/2019 16:37:16 Acute sciatica 960866205 M54.32 patient presents with lower back pain with left leg radiation x 2 weeks. pain worse when standing for long periods. - conservati ve tx- Ibuprofen 400 mg q6-8 hours x 1-2 weeks (take with food)- discussed excercise- heat/ice- f/u if not improving [id number] DOMINGA LEOS [facility] [address] [place] [address] 04/18/2020 10:10:20 04/21/2020 08:09:38 Gynecologic examination 89936402 Z01.419 G0 sexually active F presents for pap last pap was 2014 and was normal. She has no breast ob vaginal complaints . On exam normal vaginal atrophy and mucosa, no massess, abnormal discharge, Cervix normal. able to obtain pap. Breast exam normal- no nodules, massess, discharge. denies nipple retraction , changes in skin, nipple discharge, lumps, vaginal discharge, change in odor, pain dyspareuni a [id number] DOMINGA LEOS [facility] [address] [place] [address] 07/22/2020 10:08:51 07/23/2020 09:43:38 Acute sciatica 067587036 M54.32 patient presents with lower back pain with left leg radiation x 2 weeks. pain worse when standing for long periods. - conservati ve tx- Ibuprofen 400 mg q6-8 hours x 1-2 weeks (take with food)- discussed excercise- heat/ice- f/u if not improving- weight loss SARS-CoV-2 119236581 U07 .1 patient has COVID last month adn feels back to normal but occasional ly has some lung pain. Lungs sound normal, negative egophony, pulmonary excursion normal. - xray Obesity 495675550 E66.9 Patient BMI 36.1. advised weight loss [id number] Iain Grewal MD [facility] [address] [place] [address] 09/11/2020 10:01:56 09/23/2020 14:18:09 Pain of left hip joint 1161031031 14566 M25.552 pain more likely coming from low back. gave patient otc anti inflammato ry cream. agree with referral to PT. might well need referral to oncology rep specialist if symptoms do not chiki [id number] DOMINGA LEOS [facility] [address] [place] [address] 07/15/2021 10:04:38 07/16/2021 10:25:21 Chest pain 59221509 R07.9 chest pressure on occasion after covid. maybe 1-2 times per month. denies cough, sob, headache, dyspnea on exertion. Seasonal a llergic rhinitis 577179441 J30.2 Plantar fasciitis 028331 003 M72.2 right foot plantar pain when standing. 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 Has not tried anything - nsaid- frozen bottle water 15 min foot rools bid- shoe insert- weight loss Obesity 948920802 E66.9 Patient BMI 36.1. advised weight loss. drinks soda all day (regular [place]). 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 ibuprofen helps and she does take 2-3 tablets daily that are 200mg. she does elevate her leg. she has worn compressio n socks but states they don't help.PEX: right sided medial varicose veins w/o edema or erythema in leg - exercise- compressio n socks- weight loss- referral Chronic sinusitis 433441 00 J32.9 headaches 2x per week x 6 months, increased congestion , facial pain in maxillary and frontal sinuses (left side worse). zyrtec and flonase were helping but no longer helpful. she continues taking them.PEX: tender frontal and maxillary sinus- continue allergy- continue nasal spray- trial augmentin- ENT Obesity 305733106 E66.9 Patient BMI 36.1. advised weight loss. drinks soda all day (regular cocac[place]). [id number] Iam Richards MD [facility] [address] [place] [address] [place] [address] 05/10/2022 10:26:59 05/11/2022 12:10:55 Chronic sinusitis 28163624 J32.9 [id number] Iam Richards MD [facility] [address] [place] [address] 05/31/2022 12:21:57 06/02/2022 11:14:51 Chronic rhinitis 56202091 J31.0 follow back if it deteriorat es [id number] GISSELLE Sandoval [address] [place] [address] 01/18/2023 14:06:08 01/19/2023 08:40:08 Obesity 509181848 E66.9 Discussed diet and weight loss. Discussed making healthier food choices and increasing exercise. Discussed going to a technical marketing consultant. Depressive disorder 6407 9007 F32.A Denies thoughts of self harm or harming others. Pt instructed to call 911 if depression worsens or go to ED. Trying to conceive 52777 9001 Z31.9 Pt educated on using tracking apps for ovulation as well as using ovulation kits otc. Pt educated on best time during month to ttc also the use of vitamins. Pain in pelvis 31569140 R10.2 Will order pelvic ultrasound . Pt advised on treatment options for ovarian cysts and fibroids including but not limited to control use. Pt educated on other causes of pelvic pain included but not limited to constipati on or bladder issues. Pt verbalized understand ing. Will follow up pending results. [id number] DOMINGA LEOS [facility] [address] [place] [address] 02/03/2023 12:37:10 02/03/2023 13:09:29 Idiopathic urticaria 52530361 L50.1 - continue famotidine and zyrtec- labs- f/u 2 weeksPEX: no rash, nails appear normal Allergic disposition 609 414143 T78.40XA [id number] Naz Garcia Pending sale to [facility] [address] [place] [address] 03/16/2023 10:19:40 03/16/2023 10:49:13 [id number] GISSELLE Sandoval [address] [place] [address] 04/19/2023 11:08:35 04/20/2023 09:03:04 Gynecologic examination [id number] Z01.419 1. Counseled regarding prevention of STD's , condom use and prevention . 2. Counseled regarding contracept michael options, risk factors and side effects. 3. Advised avoidance of tobacco, alcohol, and drugs . 4. Counseled regarding folic acid supplement ation, calcium needs and prevention of osteoporos is . 5. BSE reviewed and recommende d. 6. Follow up in one year or sooner if needed. Vaginal discharge 230289 006 N89.8 Nuswab done and sent to lab. Counseled on STD prevention and condom use. Counseled on yeast and BV prevention . Will follow up pending lab results. Obesity 411274466 E66.9 Discussed diet and weight loss. Discussed making healthier food choices and increasing exercise. Discussed going to a technical marketing consultant. Trying to conceive [id number] 9001 Z31.9 Pt educated on using tracking apps for ovulation as well as using ovulation kits otc. Pt educated on best time during month to ttc also the use of vitamins. [id number] GISSELLE Sandoval 14 OB [address] [place] [address] 08/30/2023 10:12:29 09/01/2023 09:05:05 Amenorrhea 04562325 N91.2 Will order labs and follow up pending results. Pt educated on using tracking apps for ovulation as well as using ovulation kits otc. Pt educated on best time during month to ttc also the use of vitamins. Pain in pelvis 97176925 R10.2 Will order pelvic ultrasound . Pt advised on treatment options for ovarian cysts and fibroids including but not limited to control use. Pt educated on other causes of pelvic pain included but not limited to constipati on or bladder issues. Pt verbalized understand ing. Will follow up pending results. At [facility] risk of urinary tract infection [id number] Z91.89 1. Will send urine for culture. 2. Pt instructed to increase fluids, decrease soda, sugary beverages and caffeinate d beverages. 3. To call office if symptoms worsen or do not improve changes. Obesity 929083385 E66.9 Discussed diet and weight loss. Discussed making healthier food choices and increasing exercise. Discussed going to a technical marketing consultant. [id number] MD Jose HILL [address] IM [address] [place] [address] 09/14/2023 11:24:21 09/23/2023 08:19:26 Gastritis 9949928 K29.70 Suspect epigastric /LUQ pain from gastritis vs PUD vs severe GERD. Could also be from pain referred from costochond ritis.Will avoid Pantoprazo le since pt is trying to get .- Will trial Pepcid 20 mg twice daily as well as a course of sucralfate -Recommend avoiding NSAIDs. Use Tylenol as needed for pain-follo w-up in 4 weeks-Cons ider EGD or workup for other causes if no improvemen t [id number] MD Jose Gill [address] IM [address] [place] [address] 11/10/2023 14:48:48 11/15/2023 09:19:40 Gastritis 1737050 K29.70 Suspect epigastric /LUQ pain from gastritis vs PUD vs severe GERD. Could also be from pain referred from costochond ritis.Impr kristi with Pepcid 20 mg BID.Will avoid Pantoprazo le since pt is trying to get .- Recommend avoiding NSAIDs. Use Tylenol as needed for pain-Clay nue pepcid 20 mg bid Pain due t o varicose veins of lower extremity [id number] I83.819 Varicose veins noted on exam. 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 Mastodynia of bilateral breasts [id number] 5529731 N64.4 likely from . -may defer mammogram that was already ordered. Amenorrhea 85171855 N91. 2 No periods since August.-Uri ne test positive test positive 312984998 Z32.01 -Will get initial labs-f/u appointmen t for November 20. [id number] MIGUEL Sandoval- Jose 15 [address] [place] [address] 11/22/2023 08:44:54 11/23/2023 14:30:22 Routine care 234436533 Z34.01 Advanced m aternal age 430169146 O09.613 [id number] Malini Parsons, LACING PRESSER- Jose 14 OB [address] [place], [place] [address], [place] [address] 12/02/2023 11:00:04 12/09/2023 07:40:50 Vaginal bleeding complicating early 840207773 O20.9 [id number] KIET GARCIA, GermainD Jose 14 IM [address] [place], [place] [address], [place] [address] 12/05/2023 15:05:33 12/08/2023 03:48:04 50492734 Z33.1 The patient experience d a miscarriag e on 12/02/2023, which necessitat es a change in her care plan.Plan: Discontinu e the patient's care visits with the clinic, as she is no longer .O ffer counseling and support resources to help the patient cope with the loss of her , if she desires.Rommel beth a follow-up appointmen t to monitor the patient's physical and emotional well-being post-misca rriage.Dis cuss contracept michael options and future family planning, if the patient is open to this conversati on. [id number] DOMINGA LEOS Pending sale to [facility] [address] [place] [address] 04/10/2024 09:27:00 04/10/2024 10:45:31 Migraine 59924497 G43.909 atypical migraines starting in November with sharp pains on top of head lasting seconds. Happens 2x per week. has only tried an allergy pill one time. Has not tried anything else. Not affected by light or noise. denies cp, sob, palpitatio n, dizziness. Not worst CHAVARRIA of her life. PEX: normal 12 cranial nerves, EROM, PERRLA. NORMAL GAIT. ddx: atypical migraines, cluster CHAVARRIA, - labs- needs eye exam- CHAVARRIA journal- f/u 6-8 weeks or prn- ER if worst CHAVARRIA Administra tion of diphtheria, pertussis, and tetanus vaccine 636525610 Z23 Obesity 422768621 E66.9 Patient BMI 35.1. advised weight loss. advised to continue healthy diet. Influenza vaccination declined 602842727 Z28.21 declined [id number] [facility] [address] [place] [address] 04/12/2024 09:25:00 04/12/2024 10:22:14 Keratoconjunctivitis sicca (excluding Sj gren syndrome) 859125179 H16.223 Pain around eye 02662834 H57.12 Migraine without aura 56 865245 G43.798 [id number] Sander Victoria MD [facility] ts [address] [place] [address] 04/24/2024 15:04:35 04/25/2024 13:51:45 Keratoconjunctivitis sicca (excluding Sj gren syndrome) 283212548 H16.119 [id number] DOMINGA LEOS Pending sale to [facility] [address] [place] [address] 05/07/2024 14:11:06 05/14/2024 17:57:18 Anti-nuclear factor detected 728802730 R76.8 + EMILY, fatigue, R temporal CHAVARRIA (may need bx), miscarriag e this year, + blood in urinewill repeat tests and [facility] Blood in urine 80960896 R31.9 repeat Migraine 45422233 G43.90 9 atypical migraines starting in November with sharp pains on top of head lasting seconds. Happens 2x per week. has only tried an allergy pill one time. Has not tried anything else. Not affected by light or noise. denies cp, sob, palpitatio n, dizziness. Not worst CHAVARRIA of her life. PEX: normal 12 cranial nerves, EROM, PERRLA. NORMAL GAIT. ddx: atypical migraines, cluster CHAVARRIA, - labs- needs eye exam- CHAVARRIA journal- f/u 6-8 weeks or prn- ER if worst CHAVARRIA Panic attack 004009078 F 41.0 only use as neededif anxiety continues will start a daily medication called patient 05/14/24 and states she is doing better and has taken tablet 2x only. [id number] Luther Wood MD Simpson 14 OB [address] [place] [address] 06/18/2024 13:56:24 06/21/2024 14:31:52 Mastodynia of bilateral breasts 8515887892 0146092 N64.4 Obesity 559143101 E66.9 Depression screening 171 182704 Z13.31 --PHQ9=1 Health Concerns Section Related Observation LastModified by Organization Detai ls LastModified Time None Recorded Concern Status LastModified by Organization Details LastModified Time None Recorded Advance Directives Directive N: Payers Encounter Date Sequence Insurance Name Policy Number Policy Best Covered Member ID Best Member ID Guarantor Name 04/10/2024 1 [place] [employer] [place] [employer] Geena Levy [id number] Geena Levy 04/12/2024 1 [place] Geena Levy [id number] Geena Levy 04/24/2024 1 [place] Geena Levy [id number] Geena Levy 05/07/2024 1 [place] Geena Levy [id number] Geena Levy 06/18/2024 1 [facility] (MEDICAID REPLACEMENT - HMO) [id number] Geena Levy [id number] Geena Levy Notes Date Note Type Note Provider Name and Address Organization Details Recorded Time 04/10/2024 text/html Geena is a 38 YO F here for CHAVARRIA x 3 months CHAVARRIA started after having miscarriage in November. since November and happening 2x per week and feels like sharp stabbing pain on top of her head lasting seconds and can occur multiple times per day. Does not cause eye tearing or eye pain. Did have one episode where eye was affected but allergy pill made it go away. Was not sleeping well since November but in last 2 weeks sleep has been improved. Last episode of CHAVARRIA yesterday. Denies vision loss, trouble with lights (sometimes TV does bother it), or noises. Denies palpitations, cp, sob. She states since finding out she has Prediabetes she cut out sodas and cut back on tortillas. She still feels sad about miscarriage but states she is feeling better. DOMINGA LEOS Attn: Accounting,[address], [place], [address], [facility] 04/10/2024 10:27:13 04/12/2024 text/html Left side periocular pain extending to left latter-day and nasal area,Lasting 20/30 min at a time and recurring almost daily since 2 months. Pain gets better with Naprosyn 500 mg ( NO side effect when taken with food)She was told it might be migraine.Has been under stress since a few weeksHer sister has migraine Sander Victoria MD [address], [place], [address], [facility] 04/18/2024 12:42:18 04/24/2024 text/html Pt. still having dry feeling in left eyeNo more headache around the eye or in latter-day. (only one time for 10 min) Sander Victoria MD [address], [place], [address], [facility] 04/25/2024 11:35:09 05/07/2024 text/html Geena is here wi th sister for shes having really bad anxiety. Geena has crying episodes and feeling of panic. Her sister states she is not doing well and feels like everything is wrong with her. This just started over the last couple weeks. She chavarria sbeen getting migraines as well.atypical migraines starting in November with sharp pains on top of head lasting seconds. Happens 2x per week. has only tried an allergy pill one time. Has not tried anything else. Not affected by light or noise. denies cp, sob, palpitation, dizziness. Not worst CHAVARRIA of her life. DOMINGA LEOS Attn: Accounting,[address], [place], [address], [facility] 05/14/2024 16:43:52 06/18/2024 text/html Patient admits t o pain in her breasts that occur bilaterally. She states that the pain occurs around the time of ovulation and she sometimes feels masses in her breasts. Luther Wood MD Attn: Accounting, [address], [place], [address], [place] [facility] 06/19/2024 16:52:17 OBGyn Episode Ob Episode Information Episode Created Date Number of Fetuses Patient Bloodtype Patient rh Status Prepregnancy Weight lbs Domestic Partner Domestic Partner Phone Father Name Awning Frame Maker Status 11/10/19 24 1 A Negative CLOSED Fetus Data First Name Last Name Admitted to NICU Weight (g) Sex Living Outcome Pediatric Complications Fetus ID Race Codes Race Delivery Type [id number] Problems Problem Notes If boy, wants him circumcise d. Might want epidural during . Plans on breast feeding, possibly both. Does not want control for post BC, just rhythm method. Feels safe with partner/at home Problem Name Start Date End Date Resolution Snomed Code Not e Pain due to varicose veins o f lower extremity 11/14/2023 [id number] Torito Calculation Initial Torito Date Initial Exam Date Initial Exam Provider Initial Ultrasound Date Last Menstrual Period Date Ultra Sound Weeks Gestation 06/20/2024 11/10/2023 [email or web address] 09/14/2023 0 Eighteen To Twenty Week Torito Update Ultra Sound Date Fundal Height At Umbil Quickening Date Ultra Sound Latest Weeks Gestation Final Torito Confirmed By Final Torito Confirmed Date Final Torito Date Ultra Sound Latest Days Gestation 0 06/20/19 25 0 Pre-yovani Flowsheet Flowsheet Date 11/10/2023 Hummel Score Blood Edema Fundus Height Fundus Units Glucose Ketones Leukocytes Nitrite Labor Signs Protein Cervic Dilation Cervic Effacement Cervic Station Type Weight in lbs Pre/Post Dialysis Refused With clothes 179.807958161132 BP Diastolic BP Location Tested BP Systolic BP Type 80 117 sitting Fetus Heart Rate Present Fetus Movement Comments Flowsheet Date 11/22/2023 Hummel Score Blood Edema Fundus Height Fundus Units Glucose Ketones Leukocytes Nitrite Labor Signs Protein Cervic Dilation Cervic Effacement Cervic Station none none Type Weight in lbs Pre/Post Dialysis Refused With clothes 175.170187363047 BP Diastolic BP Location Tested BP Systolic BP Type 87 135 sitting Fetus Heart Rate Present Fetus Movement Comments doing well with no complaint adrian serrato. reviewed labs. new ob folder given to pt. mfm consult placed. rtc in 4 weeks, sooner if needed. counseled on hydration during . pt v/u. Flowsheet Date 12/02/2023 Hummel Score Blood Edema Fundus Height Fundus Units Glucose Ketones Leukocytes Nitrite Labor Signs Protein Cervic Dilation Cervic Effacement Cervic Station Type Weight in lbs Pre/Post Dialysis Refused With clothes 174.870091661323 BP Diastolic BP Location Tested BP Systolic BP Type 85 128 sitting Fetus Heart Rate Present Fetus Movement Comments pt started having spotting a few days ago, no clots. swab done today with hcg. had ultrasound on 11/29/23, will obtain records. will follow up pending results. pt advised to rest and take it easy this weekend with pelvic rest. pt v/u. Flowsheet Date 12/05/2023 Hummel Score Blood Edema Fundus Height Fundus Units Glucose Ketones Leukocytes Nitrite Labor Signs Protein Cervic Dilation Cervic Effacement Cervic Station Type Weight in lbs Pre/Post Dialysis Refused BP Diastolic BP Location Tested BP Systolic BP Type Fetus Heart Rate Present Fetus Movement Comments Menstrual History Last Menstrual Date Menses Monthly On Bcp Conception Prior Menses Frequency Hcg Plus Date Menarche Onset Age 0409/14/2023 true false 4 4 10 Genetic Screening And Infection History Question Response Note Patient's Age Will Be 35 Yea rs Or Older At Estimated Date of Delivery true Thalassemia (Iranian, Welsh, Mediterranean, Or Background): MCV < 80 false Neural Tube Defect (Meningom yelocele, Spina Bifida, Or Anencephaly) false Congenital Heart Defect false Down Syndrome false Ciro-Sachs (eg, Quaker, Cajun, Belarusian-[place]) f alse Muriel Disease false Sickle Cell Disease Or Trait () false Hemophilia Or Other Blood Disorders false Muscular Dystrophy false Cystic Fibrosis false Patsy's Chorea false Mental Retardation/Autism false If Yes, Was Person Tested For Fragile X? false Other Inherited Genetic Or Chromosomal Disorder false Maternal Metabolic Disorder (eg, Type 1 Diabetes , PKU) true pre-diabetic Patient Or Baby's Father Had A Child With Defects Not Listed Above true Recurrent Loss, Or A Stillbirth false Medications (including Suppl ements, Vitamins, Herbs, OTC Drugs), Illicit/Recreational Drugs, Alcohol true If Yes, Agent(s) And Strength/Dosage true prenatals, vitamin d3 Any Other Genetic History false Live With Someone With TB Or Exposed To TB false Patient Or Partner Has History Of Genital Herpes false Rash Or Viral Illness Since Last Menstrual Perio d false History Of STD, Gonorrhea, Chlamydia, HPV, Syphi lis false Other Infection History false History of HIV false History of Hepatitis false Prior GBS-infected child false Plans and Education First Trimester Discussed Date Discussion Item Discussion Note Discuss ed By 11/22/2023 [facility]2023 Alcohol [facility] 11/22/2023 Intimate partner violence de [facility] 11/22/2023 Environmental/work hazards [facility] 11/22/2023 [facility]ening [facility] aneuploidy [facility] 11/22/2023 Nutrition counseling ; special diet; dietary precautions (mercury, listeriosis) [facility] 11/22/2023 [facility]birth classes/[facility] facilities [facility] 11/22/2023 HIV and other routine tests [facility] 11/22/2023 Risk factors identif ied by history [facility] 11/22/2023 Weight gain [facility] 11/22/2023 Exercise [facility] 11/22/2023 Teratogens [facility] 11/22/2023 Use of any medicatio ns (including supplements, vitamins, herbs, or OTC drugs) [facility] 11/22/2023 [facility] 11/22/2023 Sexual activity [facility] 11/22/2023 Tobacco/smoking cess ation counseling (ask, advise, assess, assist, and arrange) [facility] 11/22/2023 Illicit/recreational drugs [facility] 11/22/2023 Dental care [facility] 11/22/2023 Travel [facility] 11/22/2023 Seat belt use [facility] 11/22/2023 Indications for ultrasonography [facility] 11/22/2023 Avoidance of saunas or hot tubs [facility] 11/22/2023 Toxoplasmosis precautions (cats/raw meat) [facility] Second Trimester Discussed Date Discussion Item Discussion Note Discuss ed By 11/22/2023 Selecting a care provider [facility] 11/22/[address] anning/tubal sterilization [facility] 11/22/2023 Depression screening (when indicated) [facility] 11/22/2023 Abnormal lab values [facility] 11/22/2023 Signs and symptoms of labor [facility] 11/22/2023 Intimate partner violence de [facility] 11/22/2023 Tobacco/smoking cess ation counseling (ask, advise, assess, assist, and arrange) [facility] Third Trimester Discussed Date Discussion Item Discussion Note Discuss ed By Delivery Information Delivery Date Delivery Type Labor Anesthesia Weeks Gestation Incision Type Labor Labor Length Hrs Delivered By Post Complications Tubal Sterilization Discharge Date Comments Discharge Information Feeding Method Contraceptive Method Maternal HG B and HCT Levels
--- OUTSIDE RECORDS SUMMARY | 2024-07-09 15:47 | XMS_ITS | Clinical Summary ---
Author Organization [facility] Address [address] [place] [address] Care Team Providers Care Pharmacy Coordinator Name Role Phone Malini Parsons APRN, DOUBLE BOTTOM DRIVER-C Primary Care Provider + Social History Tobacco Use Types Packs/Day Years Used Date Smoking Tobacco: Never Assessed Comments Unknown Sex and Gender Information Value Date Recorded Sex Assigned at Not on file Legal Sex Female 9:13 AM CDT Gender Identity Not on file Sexual Orientation Not on file Plan of Treatment Health Maintenance Due Date Last Done Comments Cervical Cancer Screening Pa p Smear (Age 30 to 64) Every 3 Years 1986 Annual Physical 1989 Hepatitis C 2004 DTaP, Tdap and Td Vaccines ( 1 - Tdap) 2005 Hepatitis B Vaccines (1 of 3 - 19+ 3-dose series) 2005 Cervical Cancer Screening Pa p with HPV Testing (Age 30 to 64) Every 5 Years 2016 Cervical Cancer Screening with HPV 2016 COVID-19 Vaccine (2023-2 5 season) 2024 Influenza Adult (#1) 2024 HPV Vaccines Aged Out No longer eligi ble based on patient's age to complete this topic Meningococcal B Vaccine Aged Out No l onger eligible based on patient's age to complete this topic Meningococcal Vaccine Aged Out No alycia whit eligible based on patient's age to complete this topic Pneumococcal Vaccine: Pediat rics (0 to 5 Years) and At-Risk Patients (6 to 64 Years) Aged Out No longer eligible b ased on patient's age to complete this topic RSV Immunizations Under 20 Months Aged Out No longer eligible based on patient's age to complete this topic Insurance MEDICAID Care Teams Pharmacy Coordinator Relationship Specialty Start Date End Date Malini Parsons APRN, DOUBLE BOTTOM DRIVER-C PCP - General NURSE PRACTITIONER 11/29/23
--- OUTSIDE RECORDS SUMMARY | 2024-07-09 15:48 | XMS_ITS | Clinical Summary ---
Author Organization [facility] Address [address] [place] [address] Care Team Providers Care Rn Clinical Name Role Phone Geena Pandya Primary Care Provider + Allergies Active Allergy Reactions Criticality Noted Date Comments Scallops Other (See comments) Low 06/29/2024 Shrimp Other (See comments) Low 06/29/2024 Medications naproxen (NAPROSYN) 500 mg tablet Take 1 tablet (500 mg total) by mouth 2 (two) times a day with meals 30 tablet 12/02/19 24 Active famotidine (PEPCID) 40 mg tablet Take 1 tablet (40 mg total) by mouth 2 (two) times a day 60 tablet 04/15/20 24 Active ketorolac (TORADOL) 10 mg tablet Take 1 tablet (10 mg total) by mouth every 6 (six) hours as needed for pain 20 tablet 05/18/20 24 Active white petrolatum-min eral oiL 56.8-42.5 % ointment Apply to both eyes daily 04/25/20 24 Active metroNIDAZOLE (METROGEL) 1 % gel APPLY TOPICALLY TO THE AFFECTED AREA DAILY 60 g 2 07/03/19 25 Active cyclobenzaprin e (FLEXERIL) 10 mg tablet Take 1 tablet (10 mg total) by mouth 2 (two) times a day as needed for muscle spasms 20 tablet 05/18/20 24 025 Discontinued metroNIDAZOLE (METROGEL) 1 % gelIndications :Acne Rosacea,rosace a Apply topically daily 45 g 2 06/29/19 25 025 Discontinued Active Problems Problem Noted Date Diagnosed Date 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 (JANET) po sitive 06/29/2024 History of miscarriage 06/29/2024 Gastritis 11/14/2023 Idiopathic urticaria 02/03/2023 Resolved Problems Problem Noted Date Diagnosed Date Resolved Date Amenorrhea 11/14/2023 06/29/2024 Pain of both breasts 11/14/2023 025 Pain due to varicose veins of lower extremity 11/14/1906/29/2024 Encounters Date Type Department Care Team Description 06/29/2024 9:43 AM SHIPFITTER - 06/29/2024 11:59 PM SHIPFITTER Hospital Encounter [facility] [address] [place] [id number] Neck pain Discharge Disposition: Discharge to home or self care 06/29/2024 9:34 AM SHIPFITTER - 06/29/2024 11:59 PM SHIPFITTER Hospital Encounter [address] [address] 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); Positive EMILY (antinuclear antibody); Neck pain Discharge Disposition: Discharge to home or self care 06/29/2024 9:30 AM SHIPFITTER Lab [facility] Endocrinology Metabolism and Lipid [address] [place] [address] 5th [place] [phone] 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); Neck pain; Leg cramps 06/29/2024 8:30 AM SHIPFITTER Office Visit [facility] Rheumatology [address] [place] [address] 5th [place] [phone] Alyssa Franco MD PhD Positive EMILY (antinuclear antibody) (Primary Dx); 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); History of miscarriage; Chronic nonintractable headache, unspecified headache type; Rosacea; Neck pain; Leg cramps; History of urticaria 05/17/2024 11:57 PM SHIPFITTER - 05/18/2024 12:45 AM SHIPFITTER Emergency [address] [address] Chest pain, unspecified type (Primary Dx); Chest wall pain; Acute bilateral thoracic back pain; Strain of neck muscle, initial encounter Discharge Disposition: Discharge to home or self care 04/15/2024 6:56 PM SHIPFITTER - 04/16/2024 12:08 AM SHIPFITTER Emergency [address] [address] Sal Arzola MD Casner, Teya Christie, MD Epigastric pain (Primary Dx); Uses Angolan as primary spoken language; Chest discomfort Discharge Disposition: Discharge to home or self care from Last 3 Months Medical History Medical History Date Comments Pain due to varicose veins of lower extremity Social History Tobacco Use Types Packs/Day Years Used Date Smoking Tobacco: Never Tobacco Cessation:Counseling Given: Not Answered Personal Safety Answer Date Recorded Have you ever been in or are you currently in a harmful physical or emotional relationship or is someone making you feel afraid or unsafe? Denies 05/17/2024 Comments Unknown Sex and Gender Information Value Date Recorded Sex Assigned at Not on file Legal Sex Female 2:06 PM CDT Gender Identity Not on file Sexual Orientation Not on file Obstetrics History Last Filed Vital Signs Vital Sign Reading Time Taken Comments Blood Pressure 128/86 06/29/2024 8:05 AM SHIPFITTER Pulse 91 06/29/2024 8:05 AM SHIPFITTER Temperature 36.5 C (97.7 F) 06/29/2024 8:05 AM SHIPFITTER Respiratory Rate 18 05/18/2024 12:38 AM SHIPFITTER Oxygen Saturation 100% 05/18/2024 12:38 AM SHIPFITTER Inhaled Oxygen Concentration - - Weight 70.3 kg (155 lb) 06/29/2024 8:05 AM SHIPFITTER Height 162.6 cm (5' 4 ) 06/29/2024 8:05 AM SHIPFITTER Body Mass Index 26.61 06/29/2024 8:05 AM SHIPFITTER Plan of Treatment Health Maintenance Due Date Last Done Comments Cervical Cancer Screening 1986 Depression Screening 1986 Varicella Vaccines (1 of 2 - 13+ 2-dose series) 1999 Regular Well Visit/Exam 18-64 2004 Influenza Vaccine (#1) 2024 DTaP/Tdap/Td Vaccine (2 - Td or Tdap) 04/10/2034 04/10/2024 Hepatitis B Screening Completed 06/29/2024 Hepatitis C Screening Completed 06/29/2024 HPV Vaccines Aged Out No longer eligi ble based on patient's age to complete this topic Pneumococcal vaccine <65 Aged Out No longer eligible based on patient's age to complete this topic Procedures Procedure Name Priority Date/Time Associated Diagnosis Comments XR SHOULDER RIGHT 2 OR MORE VIEWS Schedule Routine, Read Routine (OP Routine) 06/29/2024 10:00 AM SHIPFITTER Neck pain XR SPINE CERVICAL 2 OR 3 VIEWS Schedule Routine, Read Routine (OP Routine) 06/29/2024 10:00 AM SHIPFITTER Neck pain XR SHOULDER LEFT 2 OR MORE VIEWS Schedule Routine, Read Routine (OP Routine) 06/29/2024 10:00 AM SHIPFITTER Neck pain WILDA-1 ANTIBODY Routine 06/29/2024 9:34 AM SHIPFITTER SCL 70 ANTIBODIES Routine 06/29/2024 9:3 4 AM SHIPFITTER [employer]ELOPER ANTIBODIES Routine 06/29/2024 9:34 AM SHIPFITTER CORNELL ANTIBODIES Routine 06/29/2024 9:34 AM SHIPFITTER SJOGRENS SYNDROME-B ANTIBODY Routine 06/29/2024 9:34 AM SHIPFITTER SJOGRENS SYNDROME-A ANTIBODY Routine 06/29/2024 9:34 AM SHIPFITTER JANET ANTIBODY EVALUATION WITH REFLEX Routine 06/29/2024 9:34 AM SHIPFITTER 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) ANTI-DOUBLE STRANDED DNA ANTIBODIES Routine 06/29/2024 9:34 AM SHIPFITTER 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) CYCLIC CITRUL PEPTIDE ANTIBODY, IGG Routine 06/29/2024 9:34 AM SHIPFITTER 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) Positive EMILY (antinuclear antibody) EMILY SCREEN W/REFLEX JANET+DSDNA Routine 06/29/2024 9:34 AM SHIPFITTER 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) ERYTHROCYTE SEDIMENTATION RATE Routine 06/29/2024 9:34 AM SHIPFITTER 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) C4 COMPLEMENT Routine 06/29/2024 9:34 AM SHIPFITTER 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) C3 COMPLEMENT Routine 06/29/2024 9:34 AM SHIPFITTER 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) BETA 2 GLYCOPROTEIN IGG AB Routine 06/29/2024 9:34 AM SHIPFITTER 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) BETA 2 GLYCOPROTEIN IGM AB Routine 06/29/2024 9:34 AM SHIPFITTER 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) CARDIOLIPIN ANTIBODY, IGG Routine 06/29/2024 9:34 AM SHIPFITTER 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) CARDIOLIPIN ANTIBODY, IGM Routine 06/29/2024 9:34 AM SHIPFITTER 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 (AJNET) positive (HCC) LUPUS ANTICOAGULANT PANEL PLUS REFLEXES Routine 06/29/2024 9:34 AM SHIPFITTER 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) PROTEIN / CREATININE RATIO, URINE, RANDOM Routine 06/29/2024 9:34 AM SHIPFITTER 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) RHEUMATOID FACTOR Routine 06/29/2024 9:3 4 AM SHIPFITTER Neck pain MAGNESIUM Routine 06/29/2024 9:34 AM SHIPFITTER Leg cramps CRP (ACUTE PHASE) Routine 06/29/2024 9:3 4 AM SHIPFITTER Neck pain COMPREHENSIVE METABOLIC PANEL Routine 06/29/2024 9:34 AM SHIPFITTER 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) CBC WITH AUTO DIFFERENTIAL Routine 06/29/2024 9:34 AM SHIPFITTER 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) URINALYSIS AND REFLEX TO MICROSCOPIC AND CULTURE Routine 06/29/2024 9:34 AM SHIPFITTER 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) HEPATITIS C ANTIBODY Routine 06/29/2024 9:34 AM SHIPFITTER 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) Positive EMILY (antinuclear antibody) HEPATITIS B CORE ANTIBODY, TOTAL Routine 06/29/2024 9:34 AM SHIPFITTER 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) Positive EMILY (antinuclear antibody) HEPATITIS B SURFACE ANTIBODY (IMMUNE STATUS) Routine 06/29/2024 9:34 AM SHIPFITTER 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) Positive EMILY (antinuclear antibody) HEPATITIS B SURFACE ANTIGEN Routine 06/29/2024 9:34 AM SHIPFITTER 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) Positive EMILY (antinuclear antibody) T-SPOT.TB Routine 06/29/2024 9:34 AM SHIPFITTER 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) Positive EMILY (antinuclear antibody) CT CHEST PE W CONTRAST ED 05/17/2024 11:12 PM SHIPFITTER LIPASE Timed 05/17/2024 7:05 PM SHIPFITTER TROPONIN T HIGH-SENSITIVITY 2-HOUR Timed 05/17/2024 7:05 PM SHIPFITTER HCG, BLOOD, QUANTITATIVE Add-On 05/17/2024 7:03 PM SHIPFITTER XR CHEST 1 VIEW ED 05/17/2024 5:24 PM SHIPFITTER EGFR STAT 05/17/2024 5:22 PM SHIPFITTER DIFFERENTIAL AUTO STAT 05/17/2024 5:2 2 PM SHIPFITTER TROPONIN T HIGH-SENSITIVITY SERIES (BASELINE, 2HR, 4HR, 6HR) STAT 05/17/2024 5:22 PM SHIPFITTER COMPREHENSIVE METABOLIC PANEL STAT 05/17/2024 5:22 PM SHIPFITTER CBC WITH AUTO DIFFERENTIAL STAT 05/17/2024 5:22 PM SHIPFITTER ECG 12-LEAD STAT 05/17/2024 5:12 PM SHIPFITTER LACTATE STAT 04/15/2024 10:51 PM SHIPFITTER HEMOGLOBIN AND HEMATOCRIT Routine 04/15/2024 10:51 PM SHIPFITTER CTA ABDOMEN PELVIS W WO CONTRAST ED 04/15/2024 8:47 PM SHIPFITTER LIPASE Add-On 04/15/2024 8:10 PM SHIPFITTER TROPONIN T HIGH-SENSITIVITY 2-HOUR Timed 04/15/2024 8:10 PM SHIPFITTER XR CHEST 1 VIEW ED 04/15/2024 5:50 PM SHIPFITTER POCT HCG, URINE Routine 04/15/2024 5:41 PM SHIPFITTER URINALYSIS, MICROSCOPIC ONLY STAT 04/15/2024 5:37 PM SHIPFITTER URINALYSIS AND REFLEX TO MICROSCOPIC AND CULTURE STAT 04/15/2024 5:37 PM SHIPFITTER EGFR STAT 04/15/2024 5:34 PM SHIPFITTER DIFFERENTIAL AUTO STAT 04/15/2024 5:3 4 PM SHIPFITTER TROPONIN T HIGH-SENSITIVITY SERIES (BASELINE, 2HR, 4HR, 6HR) STAT 04/15/2024 5:34 PM SHIPFITTER COMPREHENSIVE METABOLIC PANEL STAT 04/15/2024 5:34 PM SHIPFITTER CBC WITH AUTO DIFFERENTIAL STAT 04/15/2024 5:34 PM SHIPFITTER ECG 12-LEAD STAT 04/15/2024 5:22 PM SHIPFITTER from Last 3 Months Results * XR Shoulder Right 2 or More Views (06/29/2024 10:00 AM SHIPFITTER) Anatomical Region Laterality Modality Upper Extremities, Shoulder Right Comp uted Radiography 06/29/2024 10:2 3 AM SHIPFITTER Impressions 06/29/2024 10:23 AM SHIPFITTER 1. Normal radiographic examinations of the cervical spine and shoulders. Electronically signed by: Perez Beatty M.D. Narrative 06/29/2024 10:23 AM SHIPFITTER EXAMINATION: XR SHOULDER LEFT 2 OR MORE VIEWS, XR SPINE CERVICAL 2 OR 3 VIEWS, XR SHOULDER RIGHT 2 OR MORE VIEWS HISTORY: Bilateral shoulder pain FINDINGS: Shoulders: 3 view examinations of each shoulder are read without comparison. The glenohumeral and acromioclavicular joint spaces are normal and symmetric. There is no fracture, erosion, or subluxation. Cervical spine: 2 view examination of the cervical spine is read without comparison. Disc heights and alignment are normal. There is no fracture, listhesis, or prevertebral soft tissue swelling. Procedure Note Perez Beatty MD - 06/29/2024 EXAMINATION: XR SHOULDER LEFT 2 OR MORE VIEWS, XR SPINE CERVICAL 2 OR 3 VIEWS, XR SHOULDER RIGHT 2 OR MORE VIEWS HISTORY: Bilateral shoulder pain FINDINGS: Shoulders: 3 view examinations of each shoulder are read without comparison. The glenohumeral and acromioclavicular joint spaces are normal and symmetric. There is no fracture, erosion, or subluxation. Cervical spine: 2 view examination of the cervical spine is read without comparison. Disc heights and alignment are normal. There is no fracture, listhesis, or prevertebral soft tissue swelling. IMPRESSION: 1. Normal radiographic examinations of the cervical spine and shoulders. Electronically signed by: Perez Beatty M.D. [facility] Bharati Franco MD PhD IMG XR PROCEDURES F inal Result * XR Shoulder Left 2 or More Views (06/29/2024 10:00 AM SHIPFITTER) Anatomical Region Laterality Modality Upper Extremities, Shoulder Left Comp uted Radiography 06/29/2024 10:2 3 AM SHIPFITTER Impressions 06/29/2024 10:23 AM SHIPFITTER 1. Normal radiographic examinations of the cervical spine and shoulders. Electronically signed by: Perez Beatty M.D. Narrative 06/29/2024 10:23 AM SHIPFITTER EXAMINATION: XR SHOULDER LEFT 2 OR MORE VIEWS, XR SPINE CERVICAL 2 OR 3 VIEWS, XR SHOULDER RIGHT 2 OR MORE VIEWS HISTORY: Bilateral shoulder pain FINDINGS: Shoulders: 3 view examinations of each shoulder are read without comparison. The glenohumeral and acromioclavicular joint spaces are normal and symmetric. There is no fracture, erosion, or subluxation. Cervical spine: 2 view examination of the cervical spine is read without comparison. Disc heights and alignment are normal. There is no fracture, listhesis, or prevertebral soft tissue swelling. Procedure Note Perez Beatty MD - 06/29/2024 EXAMINATION: XR SHOULDER LEFT 2 OR MORE VIEWS, XR SPINE CERVICAL 2 OR 3 VIEWS, XR SHOULDER RIGHT 2 OR MORE VIEWS HISTORY: Bilateral shoulder pain FINDINGS: Shoulders: 3 view examinations of each shoulder are read without comparison. The glenohumeral and acromioclavicular joint spaces are normal and symmetric. There is no fracture, erosion, or subluxation. Cervical spine: 2 view examination of the cervical spine is read without comparison. Disc heights and alignment are normal. There is no fracture, listhesis, or prevertebral soft tissue swelling. IMPRESSION: 1. Normal radiographic examinations of the cervical spine and shoulders. Electronically signed by: Perez Beatty M.D. Alyssa Bharati Franco MD PhD IMG XR PROCEDURES F inal Result * XR Spine Cervical 2 or 3 Views (06/29/2024 10:00 AM SHIPFITTER) Anatomical Region Laterality Modality Spine N/A Computed Radiogr aphy 06/29/2024 10:2 3 AM SHIPFITTER Impressions 06/29/2024 10:23 AM SHIPFITTER 1. Normal radiographic examinations of the cervical spine and shoulders. Electronically signed by: Perez Beatyt M.D. Narrative 06/29/2024 10:23 AM SHIPFITTER EXAMINATION: XR SHOULDER LEFT 2 OR MORE VIEWS, XR SPINE CERVICAL 2 OR 3 VIEWS, XR SHOULDER RIGHT 2 OR MORE VIEWS HISTORY: Bilateral shoulder pain FINDINGS: Shoulders: 3 view examinations of each shoulder are read without comparison. The glenohumeral and acromioclavicular joint spaces are normal and symmetric. There is no fracture, erosion, or subluxation. Cervical spine: 2 view examination of the cervical spine is read without comparison. Disc heights and alignment are normal. There is no fracture, listhesis, or prevertebral soft tissue swelling. Procedure Note Perez Beatty MD - 06/29/2024 EXAMINATION: XR SHOULDER LEFT 2 OR MORE VIEWS, XR SPINE CERVICAL 2 OR 3 VIEWS, XR SHOULDER RIGHT 2 OR MORE VIEWS HISTORY: Bilateral shoulder pain FINDINGS: Shoulders: 3 view examinations of each shoulder are read without comparison. The glenohumeral and acromioclavicular joint spaces are normal and symmetric. There is no fracture, erosion, or subluxation. Cervical spine: 2 view examination of the cervical spine is read without comparison. Disc heights and alignment are normal. There is no fracture, listhesis, or prevertebral soft tissue swelling. IMPRESSION: 1. Normal radiographic examinations of the cervical spine and shoulders. Electronically signed by: Perez Beatty M.D. Alyssa Franco MD PhD IMG XR PROCEDURES F inal Result * (ABNORMAL) EMILY screen w/rflx JANET+dsDNA (06/29/2024 9:34 AM SHIPFITTER) EMILY Positive 1:160 Comment: Interpretive Data Normal range for EMILY Qualitative Antibody = Negative. 1. EMILY is performed using indirect immunofluorescence against HEp-2 cells 2. EMILY titers are performed on all positive qualitative results. 3. A significantly positive EMILY result is defined as a positive nuclear fluorescence at a titer of 1:80 or greater. 4. 15% of normal people above age 65 have significantly positive EMILY results. 5% or less of normal people age 65 or under have significantly positive EMILY results. Current interpretive data was last revised on 2020. EMILY, quant 1:160 titer [facility] EMILY, interp Homogeneous (A) [facility] Blood 06/29/2024 9:34 AM SHIPFITTER 06/29/2024 10:45 AM SHIPFITTER Intell[employer]ores Franco MD PhD LAB BLOOD ORDERABLE S Final Result [facility] [place] [address] * Lupus Anticoagulant Panel plus Reflexes (06/29/2024 9:34 AM SHIPFITTER) PT 11.8 9.7 - 13.0 sec INR 1.09 0.90 - 1.20 [facility] Comment: Interpretive data Oral anticoagulant therapeutic ranges: Venous thromboembolism prophylaxis or treatment: 2.0-3.0 CARDIOLOGY Standard range: 2.0-3.0 High-intensity range: 2.5-3.5 Refer to indication-specific guidelines for appropriate target ranges for prosthetic heart valve replacement. Current interpretive data was last revised on 2019. aPTT 33 28 - 38 sec [facility] Comment: Interpretive Data Heparin therapeutic range: 66.0 - 100.0 seconds. Range based on correlation with therapeutic heparin activity range of 0.3 - 0.7 Units/mL. Current interpretive data was last revised on 2023. DRVVT screen ratio 1.01 0.00 - 1.20 Ratio [facility] SCT Screen Ratio 1.09 0.00 - 1.16 Ratio [facility] Lupus anticoagulant, interp Negative [facility] Comment: Interpretive data Lupus anticoagulants (LA) are acquired autoantibodies that interfere with invitro clotting in a phospholipid-dependent manner and are associated with an increased risk of thromboembolic events and complications. Routine APTT and PT reagents are not sensitive to inhibition by LA, and should not be used as screening tests. The laboratory follows ISTH 2009 guidelines (Pengo, 2009) for LA testing and interpretation: Two sensitive methods performed in parallel improve sensitivity. One activates the intrinsic pathway (Silica-APTT) and one activates the common pathway (dilute Sonu's viper venom time - dRVVT). Each method begins with a SCREEN step, and if neither is prolonged, no further testing is performed and the interpretation is: NO LA DETECTED. If either screening test is prolonged, then additional steps are performed to provide specificity. A POSITIVE LA result occurs if either one or both tests produce a positive CONFIRM result. An INDETERMINATE result means results cannot distinguish between coagulopathy and a weak LA. Consider retesting when PT/INR is less prolonged, if clinical indicated. To support laboratory confirmation of antiphospholipid syndrome, persistence of a positive LA result should be verified by repeat testing at least 12 weeks later (Cory, 2006). Prior to LA testing, the laboratory screens patient plasma samples for evidence of heparin contamination, which is neutralized prior to LA testing, and the following interfering conditions which require canceling LA testing: INR >3.0, fibrinogen < 100 mg/dl, use of direct oral or IV anticoagulants other than heparin. References: 1) Chan V, Varsha A, [place] JH, Ornilsa TL, Sonny M, De Jun PG. Update of the guidelines for lupus anticoagulant detection. J Thromb Haemost. 2009; 7:5096-3484. 2. Cory Raygoza al. International consensus statement on an update of the classification criteria for definite antiphospholipid syndrome (APS). J Thromb Haemost. 2006; 4:295-306. Current interpretive data was last revised on 2018 Blood 06/29/2024 9:34 AM SHIPFITTER 06/29/2024 10:45 AM SHIPFITTER Alyssa Franco MD PhD LAB BLOOD ORDERABLE S Final Result Performing Organization Address [facility] de Phone Number [facility] [place] [address] * Anti-double stranded DNA abs (06/29/2024 9:34 AM SHIPFITTER) Pathologist [facility] dsDNA Ab <1.0 <=4.0 IUnits/mL Comment: Interpretive Data Negative: < or = 4 IUnits/mL Indeterminate: 5 - 9 IUnits/mL Positive: > or = 10 IUnits/mL Current interpretive data was last revised on 2016. Blood 06/29/2024 9:34 AM SHIPFITTER 06/29/2024 10:58 AM SHIPFITTER Alyssa Franco MD PhD LAB BLOOD ORDERABLE S Final Result Performing Organization Address [facility] de Phone Number [facility] [place] [address] * T-SPOT.TB Blood (06/29/2024 9:34 AM SHIPFITTER) [facility] T-SPOT.TB Negative SeeBelow Comment: Normal Value: Negative A negative test result does not exclude the possibility of exposure to or infection with Mycobacterium tuberculosis (M. tuberculosis). Patients with recent exposure to TB infected individuals exhibiting a negative T-SPOT.TB result should be considered for retesting within 6 weeks or if other relevant clinical symptoms indicate. Results from T-SPOT.TB testing must be used in conjunction with each individual's epidemiological history, current medical status, and results of other diagnostic evaluations. The T-SPOT.TB test is qualitative and results are reported as positive, borderline or negative, given that the test controls perform as expected. In line with the Centers for Disease Control and Prevention's 2010 recommendation to report quantitative measurements alongside the qualitative result, the laboratory provides spot counts for informational purposes only. The T-SPOT.TB test should not be interpreted as a quantitative test. T-SPOT.TB Panel A Spot Count 0 [facility] T-SPOT.TB Panel B Spot Count 1 [facility] T-SPOT.TB Negative Control Passed [facility] T-SPOT.TB Positive Control Passed [facility] Comment: Test Performed at: [employer] [facility], [address] [email or web address] [address] JESUS IVORY,PHD Blood 06/29/2024 9:34 AM SHIPFITTER 06/29/2024 10:45 AM SHIPFITTER Alyssa Franco MD PhD LAB MICROBIOLOGY - GENERAL ORDERABLES Final Result Performing Organization Address [facility] Co de Phone Number [facility] Department [place] [address] * SCL 70 abs (06/29/2024 9:34 AM SHIPFITTER) Anti-Scl70, IgG <0.2 <=0.9 Ab Index Comment: Interpretive Data Negative: < 1.0 Ab Index Positive: > or = 1.0 Ab Index Current interpretive data was last revised on 2016. Blood 06/29/2024 9:34 AM SHIPFITTER 06/29/2024 10:58 AM SHIPFITTER Alyssa Franco MD PhD LAB BLOOD ORDERABLE S Final Result Performing Organization Address [facility] Co de Phone Number [facility] Department [place] [address] * Cornell abs (06/29/2024 9:34 AM SHIPFITTER) Anti-JANET, SM <0.2 <=0.9 Ab Index Comment: Interpretive Data Negative: < 1.0 Ab Index Positive: > or = 1.0 Ab Index Current interpretive data was last revised on 2016. Blood 06/29/2024 9:34 AM SHIPFITTER 06/29/2024 10:58 AM SHIPFITTER Alyssa Franco MD PhD LAB BLOOD ORDERABLE S Final Result Performing Organization Address [facility] de Phone Number [facility] [place] [address] * (ABNORMAL) SENIOR SALESFORCE DEVELOPER abs (06/29/2024 9:34 AM SHIPFITTER) SENIOR SALESFORCE DEVELOPER ab 1.2(H) <=0.9 Ab Index Comment: Interpretive Data Negative: < 1.0 Ab Index Positive: > or = 1.0 Ab Index Current interpretive data was last revised on 2016. Blood 06/29/2024 9:34 AM SHIPFITTER 06/29/2024 10:58 AM SHIPFITTER Alyssa Franco MD PhD LAB BLOOD ORDERABLE S Final Result Performing Organization Address [facility] de Phone Number [facility] [place] [address] * C4 complement (06/29/2024 9:34 AM SHIPFITTER) Pathologist [facility] Complement C4 29.6 10.0 - 40.0 mg/dL Blood 06/29/2024 9:34 AM SHIPFITTER 06/29/2024 10:45 AM SHIPFITTER Alyssa Franco MD PhD LAB BLOOD ORDERABLE S Final Result Performing Organization Address [facility] de Phone Number [facility] [place] [address] * (ABNORMAL) JANET ab eval w/reflex (06/29/2024 9:34 AM SHIPFITTER) JANET ab Positive( A) Negative Comment: Interpretive Data Positive Screens will be reflexed to specific testing for Antibodies against the following antigens: Wilda-1 Ab, SENIOR SALESFORCE DEVELOPER Ab, Scl-70 Ab, Cornell Ab, SS-A/Ro Ab, and SS- B/La Ab. Further testing for dsDNA, Centromere, or Ribosomal P antibodies is suggested in patient with a positive screen and negative specific antibodies. Current interpretive data was last revised on 2022. Blood 06/29/2024 9:34 AM SHIPFITTER 06/29/2024 10:58 AM SHIPFITTER Alyssa Franco MD PhD LAB BLOOD ORDERABLE S Final Result Performing Organization Address [facility] de Phone Number [facility] [place] [address] * Wilda-1 antibody (06/29/2024 9:34 AM SHIPFITTER) Wilda 1 Antibody, IgG <0.2 <=0.9 Ab Index Comment: Interpretive Data Negative: < 1.0 Ab Index Positive: > or = 1.0 Ab Index Current interpretive data was last revised on 2016. Blood 06/29/2024 9:34 AM SHIPFITTER 06/29/2024 10:58 AM SHIPFITTER Alyssa Franco MD PhD LAB BLOOD ORDERABLE S Final Result Performing Organization Address [facility] de Phone Number [facility] [place] [address] * Cardiolipin antibody, IgG (06/29/2024 9:34 AM SHIPFITTER) Cardiolipin, IgG <1.6 <=19.9 GPL U/mL Comment: Interpretive Data Negative: <20 GPL U/mL Positive: > or = 20 GPL U/mL Anticardiolipin antibodies are associated with certain clinical events including unexplained arterial and venous thromboemboli, and unexplained morbidity. However, detection of low levels of anticardiolipin antibodies occurs in both healthy individuals and patients with co-morbidities not associated with the antiphospholipid antibody (APA) syndrome including inflammatory and infectious conditions. In order to improve specificity, the International Congress on Antiphospholipid Antibodies recommends ACL antibodies of IgG or IgM isotype present in medium or high titer (e.g. > 40 GPL, or >the 99th percentile), on two or more occasions, at least 12 weeks apart, to support a diagnosis of antiphospholipid syndrome. The cutoff for this assay was developed from data based on the 99th percentile. In addition, the International Congress on Antiphospholipid Antibodies does not recommend testing for IgA JOE. These results were obtained with the [employer] 2200 System. Cardiolipin IgG values obtained with different manufacturers' assay methods may not be used interchangeably. Current interpretive data was last revised on 2016. Blood 06/29/2024 9:34 AM SHIPFITTER 06/29/2024 10:45 AM SHIPFITTER us Intelly Bharati Franco MD PhD LAB BLOOD ORDERABLE S Final Result [facility] Department [place] [address] * Beta 2 glycoprotein IgM Ab (06/29/2024 9:34 AM SHIPFITTER) Beta-2 glycoprotein I, IgM 1.0 <=19.9 units/mL Comment: Interpretive Data Negative: <20 U/mL Positive: > or = 20 U/mL Beta- 2 glycoprotein 1 (Beta-2 GP1) antibodies are a more specific marker of thrombotic risk. It is expected that some samples will be ACL positive and Beta- 2 GP1 negative. In order to improve specificity, the International Congress on Antiphospholipid Antibodies recommends Beta-2 GP1 antibodies of IgG or IgM isotype (> the 99th percentile), obtained twice, at least 12 weeks apart, to support a diagnosis of antiphospholipid syndrome. The cutoff for this assay was developed from data based on the 99th percentile. The Beta-2 GP1 IgM test can produce false positive results due to cross-reactivity with Rheumatoid factor. These results were obtained with the [employer] 2200 System. Beta-2 GP1 IgM values obtained with different manufacturers' assay methods may not be used interchangeably. Current interpretive data was last revised on 2016. Blood 06/29/2024 9:34 AM SHIPFITTER 06/29/2024 10:45 AM SHIPFITTER Alyssa Franco MD PhD LAB BLOOD ORDERABLE S Final Result Performing Organization Address [facility] Co de Phone Number [facility] [place] [address] * Beta 2 glycoprotein IgG Ab (06/29/2024 9:34 AM SHIPFITTER) Pathologist [facility] Beta-2 glycoprotein I, IgG <1.4 <=19.9 units/mL Comment: Interpretive Data Negative: <20 U/mL Positive: > or = 20 U/mL Beta-2 glycoprotein 1 (Beta-2 GP1) antibodies are a more specific marker of thrombotic risk. It is expected that some samples will be ACL positive and Beta- 2 [id number]. In order to improve specificity, the International Congress on Antiphospholipid Antibodies recommends Beta-2 GP1 antibodies of IgG or IgM isotype (> the 99th percentile), obtained twice, at least 12 weeks apart, to support a diagnosis of antiphospholipid syndrome. The cutoff for this assay was developed from data based on the 99th percentile. These results were obtained with the [employer] 2200 System. Beta 2GP1 IgG values obtained with different manufacturers' assay methods may not be used interchangeably. Current interpretive data was last revised on 2016. Blood 06/29/2024 9:34 AM SHIPFITTER 06/29/2024 10:45 AM SHIPFITTER Alyssa Franco MD PhD LAB BLOOD ORDERABLE S Final Result Performing Organization Address [facility] Co de Phone Number [facility] [place] [address] * Urinalysis reflex to microscopic and culture Urine (06/29/2024 9:34 AM SHIPFITTER) Color, ur Straw Yellow Clarity, ur Clear Clear [facility] Specific gravity, ur 1.005 1.003 - 1.030 [facility] pH, urine 7.0 [facility] Comment: Interpretive Data U rine pH is affected by diet, medications, systemic acid-base disturbances, and renal tubular function. pH may affect urinary stone formation. For example, urine pH below 6.0 may help reduce the tendency for calcium phosphate stones and pH greater than 6.0 may reduce the tendency for uric acid stone formation. Source: [facility] Current Interpretive Data was last revised on 2017 Protein, ur ql Negative Negative [facility] Glucose, ur ql Negative Negative [facility] Ketones, ur Negative Negative [facility] Bilirubin, ur Negative Negative [facility] Blood, ur Negative Negative [facility] Urobilinogen, ur <2.0 <2.0 mg/dL [facility] Nitrite, ur Negative Negative [facility] Leukocyte esterase, ur Negative Negative [facility] UA reflex comment Reflex conditions for microscopic UA and culture not met. [facility] Urine 06/29/2024 9:34 AM SHIPFITTER 06/29/2024 10:45 AM SHIPFITTER [facility] Bharati Franco MD PhD LAB MICROBIOLOGY - GENERAL ORDERABLES Final Result [facility] [place] [address] * CBC with auto differential (06/29/2024 9:34 AM SHIPFITTER) White Blood Count 7.7 3.6 - 11.2 K/uL [facility] RBC 4.49 3.63 - 4.92 M/uL [facility] Hemoglobin 13.5 11.9 - 15.5 g/dL [facility] Hematocrit 39.9 36.1 - 44.3 % [facility] MCV 89.0 80.0 - 97.6 fL [facility] MCH 30.2 26.7 - 33.7 pg [facility] MCHC 33.9 32.7 - 35.5 g/dL [facility] RBC Dist Width 13.2 12.3 - 17.0 % [facility] Platelet Count 403 140 - 440 K/uL [facility] MPV 7.5 6.8 - 10.4 fL [facility] Neutrophils % 59.8 38.7 - 74.5 % [facility] Lymphocyte % 33.1 20.0 - 54.3 % [facility] Monocytes % 5.3 4.3 - 13.5 % [facility] Eosinophils % 1.2 0.0 - 6.0 % [facility] Basophil % 0.6 0.0 - 3.0 % [facility] Absolute Neutrophil 4.6 1.8 - 6.6 K/uL [facility] Absolute Lymphocyte 2.5 0.8 - 3.3 K/uL [facility] Absolute Monocyte 0.4 0.2 - 1.2 K/uL [facility] Absolute Eosinophil 0.1 0.0 - 0.5 K/uL [facility] Absolute Basophil 0.0 0.0 - 0.2 K/uL [facility] Nucleated RBC % 0.1 0.0 - 0.4 /100 WBC [facility] Blood 06/29/2024 9:34 AM SHIPFITTER 06/29/2024 10:51 AM SHIPFITTER Alyssa Franco MD PhD LAB BLOOD ORDERABLE S Final Result [facility] * Hepatitis C antibody Blood (06/29/2024 9:34 AM SHIPFITTER) Hep C Ab Nonreactive Nonreactive Comment:Antibodies to HCV no t detected. Does NOT exclude the possibility of recent exposure to HCV. Current interpretive data was last revised on 22 Blood 06/29/2024 9:34 AM SHIPFITTER 06/29/2024 10:45 AM SHIPFITTER Alyssa Franco MD PhD LAB MICROBIOLOGY - GENERAL ORDERABLES Final Result [facility] Department [place] [address] * Cyclic citrul peptide antibody, IgG (06/29/2024 9:34 AM SHIPFITTER) Pathologist [facility] CCP Ab <0.5 <=2.9 units/mL Comment: Interpretive data Negative: <3 units/mL Positive: > or equal to 3 units/mL Current interpretive data was last revised on 2016. Blood 06/29/2024 9:34 AM SHIPFITTER 06/29/2024 10:45 AM SHIPFITTER Alyssa Franco MD PhD LAB BLOOD ORDERABLE S Final Result Performing Organization Address [facility] de Phone Number [facility] [place] [address] * Protein / creatinine ratio, urine, random (06/29/2024 9:34 AM SHIPFITTER) [facility] Protein, ur, quant <5.0 mg/dL Comment: Interpretive Data No reference range established. Current interpretive data was last revised 2018. Creatinine Ur 29.9 mg/dL [facility] Comment: Interpretive Data No reference range established. Current interpretive data was last revised 2018. Protein/creatinin e ratio <167.2 0.0 - 180.0 mg/g CR [facility] Urine 06/29/2024 9:34 AM SHIPFITTER 06/29/2024 10:45 AM SHIPFITTER Alyssa Franco MD PhD LAB URINE ORDERABLE S Final Result Performing Organization Address [facility] Co de Phone Number [facility] [place] [address] * Cardiolipin antibody, IgM (06/29/2024 9:34 AM SHIPFITTER) [facility] Cardiolipin, IgM 1.1 <=19.9 MPL U/mL Comment: Interpretive Data Negative: <20 MPL U/mL Positive: > or = 20 MPL U/mL Anticardiolipin antibodies are associated with certain clinical events including unexplained arterial and venous thromboemboli, and unexplained morbidity. However, detection of low levels of anticardiolipin antibodies occurs in both healthy individuals and patients with co-morbidities not associated with the antiphospholipid antibody (APA) syndrome including inflammatory and infectious conditions. In order to improve specificity, the International Congress on Antiphospholipid Antibodies recommends ACL antibodies of IgG or IgM isotype present in medium or high titer (e.g. > 40 MPL, or >the 99th percentile), on two or more occasions, at least 12 weeks apart, to support a diagnosis of antiphospholipid syndrome. The cutoff for this assay was developed from data based on the 99th percentile. In addition, the International Congress on Antiphospholipid Antibodies does not recommend testing for IgA JOE. The ACL IgM test can produce false positive results due to cross-reactivity with Rheumatoid factor, dsDNA or certain infectious disease antibodies. These results were obtained with the [employer] 2200 System. Cardiolipin IgM values obtained with different manufacturers' assay methods may not be used interchangeably. Current interpretive data was last revised on 2016. Blood 06/29/2024 9:34 AM SHIPFITTER 06/29/2024 10:45 AM SHIPFITTER Alyssa Franco MD PhD LAB BLOOD ORDERABLE S Final Result Performing Organization Address City/[facility]/ZIP Co de Phone Number [facility] [place] [address] * Hepatitis B core antibody, total Blood (06/29/2024 9:34 AM SHIPFITTER) Hep B core IgG/IgM Nonreactive Nonreactive Blood 06/29/2024 9:34 AM SHIPFITTER 06/29/2024 10:45 AM SHIPFITTER Alyssa Franco MD PhD LAB MICROBIOLOGY - GENERAL ORDERABLES Final Result [facility] [place] [address] * Hepatitis B surface antibody (immune status) Blood (06/29/2024 9:34 AM SHIPFITTER) HBsAb (immune status) Nonreactive Comment:This result is consi stent with a lack of immunity to Hepatitis B Virus when used in the setting of routine screening. Current interpretative data was last revised on 22 Blood 06/29/2024 9:34 AM SHIPFITTER 06/29/2024 10:45 AM SHIPFITTER Alyssa Franco MD PhD LAB MICROBIOLOGY - GENERAL ORDERABLES Final Result Performing Organization Address [facility] Co de Phone Number [facility] [place] [address] * Hepatitis B Surface Antigen Blood (06/29/2024 9:34 AM SHIPFITTER) HepBsAg Nonreactive Nonreactive Blood 06/29/2024 9:34 AM SHIPFITTER 06/29/2024 10:45 AM SHIPFITTER Alyssa Franco MD PhD LAB MICROBIOLOGY - GENERAL ORDERABLES Final Result Performing Organization Address [facility] de Phone Number [facility] [place] [address] * Sjogren's syndrome B ab (06/29/2024 9:34 AM SHIPFITTER) Pathologist [facility] Anti-JANET, SS-B <0.2 <=0.9 Ab Index Comment: Interpretive Data Negative: < 1.0 Ab Index Positive: > or = 1.0 Ab Index Current interpretive data was last revised on 2016. Blood 06/29/2024 9:34 AM SHIPFITTER 06/29/2024 10:58 AM SHIPFITTER us Alyssa Franco MD PhD LAB BLOOD ORDERABLE S Final Result Performing Organization Address City/[facility] Co de Phone Number [facility] [place] [address] * Sjogren's syndrome A ab (06/29/2024 9:34 AM SHIPFITTER) [facility] Anti-JANET, SS-A <0.2 <=0.9 Ab Index Comment: Interpretive Data Negative: < 1.0 Ab Index Positive: > or = 1.0 Ab Index Current interpretive data was last revised on 2016. Blood 06/29/2024 9:34 AM SHIPFITTER 06/29/2024 10:58 AM SHIPFITTER Alyssa Franco MD PhD LAB BLOOD ORDERABLE S Final Result Performing Organization Address City/[facility]/[place] [address] * Erythrocyte sedimentation rate (06/29/2024 9:34 AM SHIPFITTER) [facility] Erythrocyte sedimentation rate 20 1 - 20 mm/hr Blood 06/29/2024 9:34 AM SHIPFITTER 06/29/2024 10:45 AM SHIPFITTER Alyssa Franco MD PhD LAB BLOOD ORDERABLE S Final Result Performing Organization Address City/[facility]/[place] [address] * Rheumatoid factor (06/29/2024 9:34 AM SHIPFITTER) [facility] Rheumatoid factor, quant <10.0 0.1 - 15.0 IUnits/mL Blood 06/29/2024 9:34 AM SHIPFITTER 06/29/2024 10:45 AM SHIPFITTER Alyssa Franco MD PhD LAB BLOOD ORDER[place] [address] * (ABNORMAL) C3 complement (06/29/2024 9:34 AM SHIPFITTER) Complement C3 300.0(H) 90.0 - 180.0 mg/dL Blood 06/29/2024 9:34 AM SHIPFITTER 06/29/2024 10:45 AM SHIPFITTER Alyssa Franco MD PhD LAB BLOOD ORDERABLE S Final Result [facility] [place] [address] * CRP (acute phase) (06/29/2024 9:34 AM SHIPFITTER) C-Reactive Protein, Acute <3.0 <5.0 mg/L [facility] Blood 06/29/2024 9:34 AM SHIPFITTER 06/29/2024 10:51 AM SHIPFITTER Alyssa Franco MD PhD LAB BLOOD ORDERABLE S Final Result [facility] * Magnesium (06/29/2024 9:34 AM SHIPFITTER) Magnesium 2.2 1.6 - 2.6 mg/dL [facility] Blood 06/29/2024 9:34 AM SHIPFITTER 06/29/2024 10:51 AM SHIPFITTER Alyssa Franco MD PhD LAB BLOOD ORDERABLE S Final Result [facility] * (ABNORMAL) Comprehensive metabolic panel (06/29/2024 9:34 AM SHIPFITTER) Total Protein 8.1 6.1 - 8.4 g/dL [facility] Albumin 4.7 3.5 - 5.2 g/dL [facility] Calcium 9.7 8.6 - 10.3 mg/dL [facility] BUN 10 7 - 23 mg/dL [facility] Total Bilirubin 0.33 0.20 - 1.40 mg/dL [facility] Alk Phos, Total 67 35 - 129 IU/L [facility] AST (SGOT) 13 11 - 47 IU/L [facility] ALT (SGPT) 15 6 - 53 IU/L [facility] Creatinine 0.44(L) 0.60 - 1.10 mg/dL [facility] Sodium 143 135 - 145 mmol/L [facility] Potassium 3.8 3.3 - 5.1 mmol/L [facility] Chloride 104 95 - 107 mmol/L [facility] CO2 Content 25 21 - 29 mmol/L [facility] Glucose 94 64 - 99 mg/dL [facility] Comment: NONFASTING GLUCOSE RANGE = 64-199 mg/dL FASTING GLUCOSE 64 - 99 = NORMAL FASTING GLUCOSE 100 - 125 = IMPAIRED FASTING GLUCOSE FASTING GLUCOSE >=126 = PROVISIONAL DIAGNOSIS OF DIABETES eGFR >90.0 >60.0 mL/min/1.7 3 m2 [facility] Blood 06/29/2024 9:34 AM SHIPFITTER 06/29/2024 10:51 AM SHIPFITTER us Intelly Bharati Franco MD PhD LAB BLOOD ORDERABLE S Final Result [facility] * CT Chest PE (CTA) W Contrast (05/17/2024 11:12 PM SHIPFITTER) Anatomical Region Laterality Modality Body N/A Computed Tomogra phy 05/17/2024 11:3 5 PM SHIPFITTER Narrative 05/17/2024 11:38 PM SHIPFITTER EXAM DESCRIPTION: CT CHEST PE (CTA) W CONTRAST REASON FOR STUDY: chest pain Presents to ED from home with c/o left arm numbness, CP, and back pain while cooking. Reports feeling a little nauseous right now. Being seen by Dr. Vaz to be evaluated for lupus. Hx gastritis translating during triage, pt refused spanish interpreter/translator TECHNIQUE: CT angiogram of the chest performed with intravenous contrast using helical scanning technique with dynamic intravenous contrast injection. Reconstructed coronal and sagittal MPR images reviewed. All images stored on PACS. 3D MIP images rendered on scanning unit and reviewed at time of interpretation. Automated exposure control was used as a dose optimization technique for this examination. CONTRAST TYPE/DOSE: 100mL of IOVERSOL 350 MG IODINE/ML INTRAVENOUS SYRINGE injected via intravenous COMPARISON: None FINDINGS: VASCULATURE: No identified pulmonary emboli. LUNGS: No nodules or masses. No pneumonia. PLEURA: No effusion. No pneumothorax. MEDIASTINUM/ERIC: No identified masses or abnormal nodes. HEART: Heart size is normal with no pericardial effusion. AXILLA: No adenopathy. CHEST WALL: No masses. No subcutaneous air. HARDWARE/LINES/TUBES: None. UPPER ABDOMEN: No significant abnormality. MUSCULOSKELETAL: No significant abnormality. OTHER: No significant abnormality. IMPRESSION: No evidence of pulmonary embolism. Normal CT of the chest. THIS IS AN ELECTRONICALLY VERIFIED FINAL REPORT 05/17/2024 11:38 PM - Electronically signed by Alexi Fischer M.D. KT T: Report ID: [id number] Reading Location: [place] [address] Procedure Note Alexi Fischer MD - 05/17/2024 EXAM DESCRIPTION: CT CHEST PE (CTA) W CONTRAST REASON FOR STUDY: chest pain Presents to ED from home with c/o left arm numbness, CP, and back painwhile cooking. Reports feeling a little nauseous right now. Being seen by to be evaluated for lupus. Hx gastritis translating during triage, pt refused spanish interpreter/translator TECHNIQUE: CT angiogram of the chest performed with intravenous contrastusing helical scanning technique with dynamic intravenous contrast injection. Reconstructed coronal and sagittal MPR images reviewed. All images storedon PACS. 3D MIP images rendered on scanning unit and reviewed at time of interpretation. Automated exposure control was used as a doseoptimization technique for this examination. CONTRAST TYPE/DOSE: 100mL of IOVERSOL 350 MG IODINE/ML INTRAVENOUSSYRINGE injected via intravenous COMPARISON: None FINDINGS: VASCULATURE: No identified pulmonary emboli. LUNGS: No nodules or masses. No pneumonia. PLEURA: No effusion. No pneumothorax. MEDIASTINUM/ERIC: No identified masses or abnormal nodes. HEART: Heart size is normal with no pericardial effusion. AXILLA: No adenopathy. CHEST WALL: No masses. No subcutaneous air. HARDWARE/LINES/TUBES: None. UPPER ABDOMEN: No significant abnormality. MUSCULOSKELETAL: No significant abnormality. OTHER: No significant abnormality. IMPRESSION: No evidence of pulmonary embolism. Normal CT of the chest. THIS IS AN ELECTRONICALLY VERIFIED FINAL REPORT 05/17/2024 11:38 PM - Electronically signed by Alexi Fischer M.D. KT T: Report ID: [id number] Reading Location: [place] [address] Sal Arzola MD IMG CT PROCEDURES Final Re sult * Troponin T high-sensitivity 2-hour (05/17/2024 7:05 PM SHIPFITTER) Trop T hs <6 <=14 ng/L Comment: Interpretive Data For further hscTnT resources including the diagnostic algorithm and an aid in interpretation, copy and paste this link: https://nrl.testcatalog.org/show/[email or web address] Current Interpretive Data last revised 2020. Trop T hs delta 0 ng/L [facility] Trop T hs interp Insignificant [facility] Blood 05/17/2024 7:05 PM SHIPFITTER 05/17/2024 7:07 PM SHIPFITTER Sal Arzola MD LAB BLOOD ORDERABLES Final Result Performing Organization Address [facility] Co de Phone Number [facility] [address] [facility] [place] [address] * Lipase (05/17/2024 7:05 PM SHIPFITTER) Pathologist [facility] Lipase 43 10 - 99 Units/L Blood 05/17/2024 7:05 PM SHIPFITTER 05/17/2024 7:07 PM SHIPFITTER Sal Arzola MD LAB BLOOD ORDERABLES Final Result Performing Organization Address City/[facility] Co de Phone Number [facility] [address] [place] [address] * hCG, blood, quantitative (05/17/2024 7:03 PM SHIPFITTER) hCG, quant <5.0 0.0 - 5.0 IUnits/L Comment: Interpretive Data Male: < 5 IU/L Non- premenopausal Female: <5 IU/L The [employer] hCG Beta Quant assay procedure was used. Results from different manufacturers or methods may not be comparable. Serial testing should be performed using the same method. Interpretive Data was last revised on 2023 Blood 05/17/2024 7:03 PM SHIPFITTER 05/17/2024 9:38 PM SHIPFITTER us Sal Arzola MD LAB BLOOD ORDERABLES Final Result [address] [address] * XR Chest 1 Vw Portable (if patient condition/safety warrant portable) (05/17/2024 5:24 PM SHIPFITTER) Anatomical Region Laterality Modality Body, Chest N/A Computed Radiogr aphy 05/17/2024 5:55 PM SHIPFITTER Narrative 05/17/2024 5:56 PM SHIPFITTER EXAM DESCRIPTION: XR CHEST 1 VIEW REASON FOR STUDY: chest pain Presents to ED from home with c/o left arm numbness, CP, and back pain while cooking. Reports feeling a little nauseous right now. Being seen by Dr. Vaz to be evaluated for lupus. Hx gastritis translating during triage, pt refused spanish interpreter/translator TECHNIQUE: 1 radiographic view(s) of the chest. COMPARISON: 04/15/2024 FINDINGS: LUNGS: No focal opacity, pleural effusion, or pneumothorax. HEART/MEDIASTINUM: Cardiac silhouette normal in size. Mediastinal and hilar contours appear normal. LINES/TUBES: None. BONES: No acute osseous abnormality. IMPRESSION: No acute cardiopulmonary abnormality. THIS IS AN ELECTRONICALLY VERIFIED FINAL REPORT 05/17/2024 5:56 PM - Electronically signed by Alexi Covarrubias.D. KR T: Report ID: [id number] Reading Location: [id number] Procedure Note Alexi Vale MD - 05/17/2024 EXAM DESCRIPTION: XR CHEST 1 VIEW REASON FOR STUDY: chest pain Presents to ED from home with c/o left arm numbness, CP, and back painwhile cooking. Reports feeling a little nauseous right now. Being seen by to be evaluated for lupus. Hx gastritis translating during triage, pt refused spanish interpreter/translator TECHNIQUE: 1 radiographic view(s) of the chest. COMPARISON: 04/15/2024 FINDINGS: LUNGS: No focal opacity, pleural effusion, or pneumothorax. HEART/MEDIASTINUM: Cardiac silhouette normal in size. Mediastinal andhilar contours appear normal. LINES/TUBES: None. BONES: No acute osseous abnormality. IMPRESSION: No acute cardiopulmonary abnormality. THIS IS AN ELECTRONICALLY VERIFIED FINAL REPORT 05/17/2024 5:56 PM - Electronically signed by Alexi MEDINA T: Report ID: [id number] Reading Location: [id number] Sal Arzola MD IMG XR PROCEDURES Final Re sult * Troponin T high-sensitivity series (baseline, 2hr, 4hr, 6hr) (05/17/2024 5:22 PM SHIPFITTER) Trop T hs <6 <=14 ng/L Comment: Interpretive Data For further hscTnT resources including the diagnostic algorithm and an aid in interpretation, copy and paste this link: https://nrl.testcatalog.org/show/hsTrop Current Interpretive Data last revised 2020. Blood 05/17/2024 5:22 PM SHIPFITTER 05/17/2024 5:27 PM SHIPFITTER Sal Arzola MD LAB BLOOD ORDERABLES Final Result [facility] [address] [facility] Department [place] [address] * eGFR (05/17/2024 5:22 PM SHIPFITTER) [facility] eGFR >90 >=60 mL/min/1. 73 m2 Comment: Interpretive Data Reference Interval Normal >/= 90 mL/min/1.73m2 Mildly decreased* 60 - 89 mL/min/1.73m2 Mildly to moderately decreased 45 - 59 mL/min/1.73m2 Moderately to severely decreased 30 - 44 mL/min/1.73m2 Severely decreased 15 - 29 mL/min/1.73m2 Kidney Failure < 15 mL/min/1.73m2 *Relative to young adult level Estimated glomerular filtration rate is determined by the 2020 CKD-EPI equation recommended by the National Kid[employer] (A Unifying Approach to GFR Estimation: Recommendations of the NKF-ASK Task Force on Reassessing the Inclusion of Race in Diagnosing Kidney Disease, JASN 2020). The CKD-EPI equation should not be used for patients with unstable renal function and has not been validated in children and those over 70. Current interpretive data was last reviewed 2021. Blood 05/17/2024 5:22 PM SHIPFITTER 05/17/2024 5:27 PM SHIPFITTER us Sal Arzola MD LAB BLOOD ORDERABLES Final Result [facility] [address] [facility] Department [place] [address] * (ABNORMAL) Differential, auto (05/17/2024 5:22 PM SHIPFITTER) [facility] Neutrophil abs 8.8(H) 1.5 - 6.5 K/cumm Imm gran abs 0.0 0.0 - 0.1 K/cumm [facility] Lymphocyte abs 3.5(H) 0.8 - 3.3 K/cumm [facility] Monocyte abs 0.6 0.2 - 0.8 K/cumm [facility] Eosinophil abs 0.1 0.0 - 0.5 K/cumm [facility] Basophil abs 0.1 0.0 - 0.1 K/cumm [facility] Neutrophil pct 67.4 % [facility] Comment: Interpretive Data Percent cell count reference ranges are not reported, since discordance with absolute values may lead to misinterpretation of CBC data. Current Interpretive Data was last revised on 2017. Imm gran pct 0.2 % [facility] Comment: Interpretive Data Percent cell count reference ranges are not reported, since discordance with absolute values may lead to misinterpretation of CBC data. Current Interpretive Data was last revised on 2017. Lymphocyte pct 26.6 % [facility] Comment: Interpretive Data Percent cell count reference ranges are not reported, since discordance with absolute values may lead to misinterpretation of CBC data. Current Interpretive Data was last revised on 2017. Monocyte pct 4.9 % [facility] Comment: Interpretive Data Percent cell count reference ranges are not reported, since discordance with absolute values may lead to misinterpretation of CBC data. Current Interpretive Data was last revised on 2017. Eosinophil pct 0.5 % [facility] Comment: Interpretive Data Percent cell count reference ranges are not reported, since discordance with absolute values may lead to misinterpretation of CBC data. Current Interpretive Data was last revised on 2017. Basophil pct 0.4 % [facility] Comment: Interpretive Data Percent cell count reference ranges are not reported, since discordance with absolute values may lead to misinterpretation of CBC data. Current Interpretive Data was last revised on 2017. Blood 05/17/2024 5:22 PM SHIPFITTER 05/17/2024 5:27 PM SHIPFITTER us Sal Arzola MD LAB BLOOD ORDERABLES Final Result [facility] [address] [facility] Department [place] [address] * (ABNORMAL) CBC with auto differential (05/17/2024 5:22 PM SHIPFITTER) WBC 13.1(H) 3.8 - 9.9 K/cumm Hgb 13.3 11.9 - 15.5 g/dL [facility] Hct 39.7 35.6 - 45.5 % [facility] Plt 369 150 - 400 K/cumm [facility] MPV 9.2 9.1 - 12.3 fL [facility] RBC 4.46 3.90 - 5.20 M/cumm [facility] MCV 89.0 81.3 - 96.4 fL [facility] MCH 29.8 27.1 - 33.3 pg [facility] MCHC 33.5 32.3 - 35.7 g/dL [facility] RDW CV 12.9 11.1 - 14.9 % [facility] RDW SD 42.3 35.7 - 48.1 fL [facility] NRBC abs 0.00 0.00 - 0.01 K/cumm [facility] Blood (Blood, Venous) 05/17/2024 5:22 PM SHIPFITTER 05/17/2024 5:27 PM SHIPFITTER Sal Arzola MD LAB BLOOD ORDERABLES Final Result [facility] [address] [facility] Department [place] [address] * (ABNORMAL) Comprehensive metabolic panel (05/17/2024 5:22 PM SHIPFITTER) Sodium 135 135 - 145 mmol/L Potassium, pl 3.5 3.3 - 4.9 mmol/L [facility] Chloride 101 97 - 110 mmol/L [facility] CO2 22 22 - 32 mmol/L [facility] Anion gap 12 2 - 15 mmol/L [facility] BUN 9 6 - 25 mg/dL [facility] Creatinine 0.39(L) 0.60 - 1.10 mg/dL [facility] Glucose 107 70 - 199 mg/dL [facility] Comment: Interpretive Data Fasting glucose >/= 126 mg/dl is diagnostic for diabetes. Fasting is defined as no caloric intake for at least 8 hours. Fasting glucose between 100 mg/dl to 125 mg/dl is diagnostic of prediabetes. In a patient with classic symptoms of hyperglycemia or hyperglycemic crisis, a random glucose >/= 200 mg/dl is diagnostic for diabetes. In the absence of unequivocal hyperglycemia, results should be confirmed by repeat testing. The classification and Diagnosis of Diabetes Diabetes Care 2021; 46: S19-S40. Current interpretive data was last revised 2022. Calcium 9.5 8.5 - 10.3 mg/dL [facility] Bilirubin, total 0.3 0.1 - 1.2 mg/dL [facility] Protein, pl 7.8 6.5 - 8.5 g/dL [facility] Albumin 4.5 3.5 - 5.0 g/dL [facility] Alk phos 62 40 - 130 Units/L [facility] ALT 14 7 - 45 Units/L [facility] AST 10 10 - 45 Units/L [facility] Blood 05/17/2024 5:22 PM SHIPFITTER 05/17/2024 5:27 PM SHIPFITTER Sal Arzola MD LAB BLOOD ORDERABLES Final Result Performing Organization Address [facility] Co de Phone Number [facility] [address] [facility] Department [place] [address] * ECG 12 lead (05/17/2024 5:12 PM SHIPFITTER) Ventricular Rate EKG/Min 106 BPM [facility] Atrial Rate 106 BPM [facility] WV-Interval (MSEC) 138 ms [facility] QRS-Interval (MSEC) 78 ms [facility] QT-Interval (MSEC) 344 ms [facility] QTc 456 ms [facility] P [place] 44 degrees [facility] R [place] -8 degrees [facility] T [place] 37 degrees [facility] Diagnosis Sinus tachycardia Otherwise normal ECG When compared with ECG of 15-APR-2024 17:22, No significant change was found Confirmed by AUSTIN REBOLLEDO M.D. ([id number]) on 05/18/2024 3:23:38 PM [facility] 05/17/2024 5:12 PM SHIPFITTER 05/18/2024 3:23 PM SHIPFITTER Sal Arzola MD ECG ORDERABLES Final Resu lt Performing Organization Address [facility]/ZIP Co de Phone Number [facility] * Lactate (04/15/2024 10:51 PM SHIPFITTER) Lactate 0.7 0.7 - 2.0 mmol/L Blood 04/15/2024 10:5 1 PM SHIPFITTER 04/15/2024 10:58 PM SHIPFITTER Sal Arzola MD LAB BLOOD ORDERABLES Final Result Performing Organization Address City/[facility] Co de Phone Number [facility] [address] [place] [address] * Hemoglobin and hematocrit (04/15/2024 10:51 PM SHIPFITTER) Hgb 12.3 11.9 - 15.5 g/dL Hct 36.7 35.6 - 45.5 % [facility] Blood 04/15/2024 10:5 1 PM SHIPFITTER 04/15/2024 10:58 PM SHIPFITTER Sal Arzola MD LAB BLOOD ORDERABLES Final Result Performing Organization Address [facility] Co de Phone Number [facility] [place] [address] * CTA Abdomen Pelvis (04/15/2024 8:47 PM SHIPFITTER) Anatomical Region Laterality Modality Body N/A Computed Tomogra phy 04/15/2024 9:23 PM SHIPFITTER Narrative 04/15/2024 9:27 PM SHIPFITTER EXAM DESCRIPTION: CTA ABDOMEN PELVIS REASON FOR STUDY: epigastric pain, possible GIB Pt arrives to ED via POV from home. Pt C/O multiple medical complaints. Pt endorses CP, heartburn, N/V, blood in urine and blood in stool x 1 week. Pt denies PORTER, SOB. NAD. Ax4. Angolan speaking; translating per pt request. No known surgeries/conditions at this time TECHNIQUE: CTA scan of the abdomen and pelvis performed without and with intravenous and without oral contrast using helical scanning technique with dynamic intravenous contrast injection. Precontrast, arterial, and portal venous phase images of the abdomen and pelvis were acquired. Images reviewed with lung, soft tissue and bone windows. Reconstructed coronal and sagittal MPR images reviewed. All images stored on PACS. 3D MIP images rendered on scanning unit and reviewed at time of interpretation. Automated exposure control was used as a dose optimization technique for this examination. CONTRAST TYPE/DOSE: 93mL of IOVERSOL 350 MG IODINE/ML INTRAVENOUS SYRINGE injected COMPARISON: 12/02/2023 FINDINGS: VASCULATURE: No dissection, aneurysm, intramural hematoma, rupture, or penetrating atherosclerotic ulcer. No large vessel occlusion. No active contrast extravasation to indicate active bleeding. CELIAC TRUNK: No flow limiting stenosis, dissection, or aneurysm. SUPERIOR MESENTERIC ARTERY: No flow limiting stenosis, dissection, or aneurysm. RIGHT RENAL ARTERY: No flow limiting stenosis, dissection, or aneurysm. LEFT RENAL ARTERY: No flow limiting stenosis, dissection, or aneurysm. INFERIOR MESENTERIC ARTERY: No flow limiting stenosis, dissection, or aneurysm. AORTA: No flow limiting stenosis, dissection, or aneurysm. ILIAC ARTERIES: No flow limiting stenosis, dissection, or aneurysm. LOWER CHEST: Imaged lungs are clear. No pleural effusion. Imaged portions of the heart and esophagus are within normal limits. LIVER: Normal size. No identified cystic or solid masses. Calcified hepatic granuloma. The hepatic and portal veins are patent. GALLBLADDER: Normal. BILE DUCTS: No intrahepatic or extrahepatic ductal dilatation. SPLEEN: Normal size. No focal lesions. PANCREAS: No identified cystic or solid masses. No significant calcifications. No adjacent inflammation or peripancreatic fluid collections. Pancreatic duct not dilated. ADRENALS: Normal. KIDNEYS/URINARY TRACT: No identified significant cystic or solid masses. No stones. No hydronephrosis or hydroureter. Symmetric enhancement. Normal bladder. GI: The stomach is normal. The small bowel and colon normal in course and caliber with no evidence of obstruction or inflammation. Scattered colonic diverticulosis along the sigmoid colon. Normal appendix. PERITONEUM: No ascites or free air. No lymphadenopathy. RETROPERITONEUM: No mass or adenopathy. REPRODUCTIVE: There is a uterine leiomyoma measuring 7 mm. No adnexal masses. MUSCULOSKELETAL: No acute fractures or aggressive osseous lesions. Chronic bilateral L5 pars interarticularis defects with grade 1 anterolisthesis of L5 on S1. IMPRESSION: 1. No active contrast extravasation to indicate active bleeding. Scattered colonic diverticulosis. THIS IS AN ELECTRONICALLY VERIFIED FINAL REPORT 04/15/2024 9:27 PM - Electronically signed by Celeste Brooke M.D. AT T: Report ID: [id number] Reading Location: [id number] Procedure Note Celeste Brooke MD - 04/15/2024 EXAM DESCRIPTION: CTA ABDOMEN PELVIS REASON FOR STUDY: epigastric pain, possible GIB Pt arrives to ED via POV from home. Pt C/O multiple medical complaints. Pt endorses CP, heartburn, N/V, blood in urine and blood in stool x 1 week.Pt denies PORTER, SOB. NAD. Ax4. Angolan speaking; translating per pt request. No known surgeries/conditions at this time TECHNIQUE: CTA scan of the abdomen and pelvis performed without and with intravenous and without oral contrast using helical scanning techniquewith dynamic intravenous contrast injection. Precontrast, arterial, and portal venous phase images of the abdomen and pelvis were acquired. Images reviewed with lung, soft tissue and bone windows. Reconstructed coronaland sagittal MPR images reviewed. All images stored on PACS. 3D MIP images rendered on scanning unit and reviewed at time of interpretation.Automated exposure control was used as a dose optimization technique for this examination. CONTRAST TYPE/DOSE: 93mL of IOVERSOL 350 MG IODINE/ML INTRAVENOUSSYRINGE injected COMPARISON: 12/02/2023 FINDINGS: VASCULATURE: No dissection, aneurysm, intramural hematoma, rupture, or penetrating atherosclerotic ulcer. No large vesselocclusion. No active contrast extravasation to indicate active bleeding. CELIAC TRUNK: No flow limiting stenosis, dissection, or aneurysm. SUPERIOR MESENTERIC ARTERY: No flow limiting stenosis, dissection, or aneurysm. RIGHT RENAL ARTERY: No flow limiting stenosis, dissection, or aneurysm. LEFT RENAL ARTERY: No flow limiting stenosis, dissection, or aneurysm. INFERIOR MESENTERIC ARTERY: No flow limiting stenosis, dissection, or aneurysm. AORTA: No flow limiting stenosis, dissection, or aneurysm. ILIAC ARTERIES: No flow limiting stenosis, dissection, or aneurysm. LOWER CHEST: Imaged lungs are clear. No pleural effusion. Imagedportions of the heart and esophagus are within normal limits. LIVER: Normal size. No identified cystic or solid masses. Calcified hepatic granuloma. The hepatic and portal veins are patent. GALLBLADDER: Normal. BILE DUCTS: No intrahepatic or extrahepatic ductal dilatation. SPLEEN: Normal size. No focal lesions. PANCREAS: No identified cystic or solid masses. No significant calcifications. No adjacent inflammation or peripancreatic fluidcollections. Pancreatic duct not dilated. ADRENALS: Normal. KIDNEYS/URINARY TRACT: No identified significant cystic or solid masses.No stones. No hydronephrosis or hydroureter. Symmetric enhancement. Normal bladder. GI: The stomach is normal. The small bowel and colon normal in courseand caliber with no evidence of obstruction or inflammation. Scatteredcolonic diverticulosis along the sigmoid colon. Normal appendix. PERITONEUM: No ascites or free air. No lymphadenopathy. RETROPERITONEUM: No mass or adenopathy. REPRODUCTIVE: There is a uterine leiomyoma measuring 7 mm. No adnexal masses. MUSCULOSKELETAL: No acute fractures or aggressive osseous lesions.Chronic bilateral L5 pars interarticularis defects with grade 1 anterolisthesis ofL5 on S1. IMPRESSION: 1. No active contrast extravasation to indicate activebleeding. Scattered colonic diverticulosis. THIS IS AN ELECTRONICALLY VERIFIED FINAL REPORT 04/15/2024 9:27 PM - Electronically signed by Celeste Brooke M.D. AT T: Report ID: [id number] Reading Location: [place] [address] Sal Arzola MD IMG CT PROCEDURES Final Re sult * Troponin T high-sensitivity 2-hour (04/15/2024 8:10 PM SHIPFITTER) Trop T hs <6 <=14 ng/L Comment: Interpretive Data For further hscTnT resources including the diagnostic algorithm and an aid in interpretation, copy and paste this link: https://nrl.testcatalog.org/show/[email or web address] Current Interpretive Data last revised 2020. Trop T hs delta 0 ng/L [facility] Trop T hs interp Insignificant [facility] Blood 04/15/2024 8:10 PM SHIPFITTER 04/15/2024 8:14 PM SHIPFITTER Sal Arzola MD LAB BLOOD ORDERABLES Final Result [facility] [address] [facility] Department [place] [address] * Lipase (04/15/2024 8:10 PM SHIPFITTER) Lipase 34 10 - 99 Units/L Blood 04/15/2024 8:10 PM SHIPFITTER 04/15/2024 8:15 PM SHIPFITTER us Sal Arzola MD LAB BLOOD ORDERABLES Final Result [facility] [address] [facility] Department [place] [address] * XR Chest 1 Vw Portable (if patient condition/safety warrant portable) (04/15/2024 5:50 PM SHIPFITTER) Anatomical Region Laterality Modality Body, Chest N/A Computed Radiogr aphy 04/15/2024 6:20 PM SHIPFITTER Narrative 04/15/2024 6:20 PM SHIPFITTER EXAM DESCRIPTION: XR CHEST 1 VIEW REASON FOR STUDY: chest pain Pt arrives to ED via POV from home. Pt C/O multiple medical complaints. Pt endorses CP, heartburn, N/V, blood in urine and blood in stool x 1 week. Pt denies PORTER, SOB. NAD. Ax4. TECHNIQUE: Portable upright AP view of the chest. COMPARISON: None FINDINGS: LUNGS AND PLEURA: No focal opacity, large effusion, or pneumothorax identified. HEART/MEDIASTINUM: Trachea midline. Cardiac silhouette normal in size. Mediastinal contours appear normal. BONES: Unremarkable. CHEST WALL: Unremarkable. UPPER ABDOMEN: Unremarkable. IMPRESSION: No acute abnormality identified. THIS IS AN ELECTRONICALLY VERIFIED FINAL REPORT 04/15/2024 6:20 PM - Electronically signed by Hermes PETERS T: Report ID: [id number] Reading Location: [id number] Procedure Note Hermes Almonte MD - 04/15/2024 EXAM DESCRIPTION: XR CHEST 1 VIEW REASON FOR STUDY: chest pain Pt arrives to ED via POV from home. Pt C/O multiple medical complaints. Pt endorses CP, heartburn, N/V, blood in urine and blood in stool x 1 week.Pt denies PORTER, SOB. NAD. Ax4. TECHNIQUE: Portable upright AP view of the chest. COMPARISON: None FINDINGS: LUNGS AND PLEURA: No focal opacity, large effusion, orpneumothorax identified. HEART/MEDIASTINUM: Trachea midline. Cardiac silhouette normal in size. Mediastinal contours appear normal. BONES: Unremarkable. CHEST WALL: Unremarkable. UPPER ABDOMEN: Unremarkable. IMPRESSION: No acute abnormality identified. THIS IS AN ELECTRONICALLY VERIFIED FINAL REPORT 04/15/2024 6:20 PM - Electronically signed by Hermes PTEERS T: Report ID: [id number] Reading Location: [place] [address] Sal Arzola MD IMG XR PROCEDURES Final Re sult * POCT hCG, urine (04/15/2024 5:41 PM SHIPFITTER) HCG, ur, POC Negative Negative Lot Number [id number] QC Backgroud Clear Acceptable QC Control Line Acceptable Urine 04/15/2024 5:41 PM SHIPFITTER Sal Arzola MD POINT OF CARE TEST ORDERAB LES Final Result * (ABNORMAL) Urinalysis reflex to microscopic and culture Urine (04/15/2024 5:37 PM SHIPFITTER) Color, ur Straw Yellow Clarity, ur Clear Clear [facility] Specific gravity, ur 1.011 1.003 - 1.030 [facility] pH, urine 5.5 [facility] Comment: Interpretive Data U rine pH is affected by diet, medications, systemic acid-base disturbances, and renal tubular function. pH may affect urinary stone formation. For example, urine pH below 6.0 may help reduce the tendency for calcium phosphate stones and pH greater than 6.0 may reduce the tendency for uric acid stone formation. Source: [facility] Riskonnect Current Interpretive Data was last revised on 2017 Protein, ur ql Negative Negative [facility] Glucose, ur ql Negative Negative [facility] Ketones, ur 2+(A) Negative [facility] Bilirubin, ur Negative Negative [facility] Blood, ur 2+(A) Negative [facility] Urobilinogen, ur <2.0 <2.0 mg/dL [facility] Nitrite, ur Negative Negative [facility] Leukocyte esterase, ur Negative Negative [facility] UA reflex comment Reflex to microscopic UA will be performed. [facility] Urine 04/15/2024 5:37 PM SHIPFITTER 04/15/2024 5:41 PM SHIPFITTER Sal Arzola MD LAB MICROBIOLOGY - GENERAL ORDERABLES Final Result Performing Organization Address [facility] Co de Phone Number [address] [address] * (ABNORMAL) Urinalysis, microscopic only (04/15/2024 5:37 PM SHIPFITTER) WBC, ur 0-5 0 - 5 /HPF RBC, ur 6-10(A) 0 - 2 /HPF [facility] Epithelial cells, squamous, ur 1-5 0 - 5 /HPF [facility] Bacteria, ur Trace(A) [facility] Culture Reflex Comment Reflex conditions for urine culture (WBC >10) not met. [facility] Urine 04/15/2024 5:37 PM SHIPFITTER 04/15/2024 5:41 PM SHIPFITTER Sal Arzola MD LAB URINE ORDERABLES Final Result Performing Organization Address [facility] de Phone Number [address] [address] * Troponin T high-sensitivity series (baseline, 2hr, 4hr, 6hr) (04/15/2024 5:34 PM SHIPFITTER) Pathologist [facility] Trop T hs <6 <=14 ng/L Comment: Interpretive Data For further hscTnT resources including the diagnostic algorithm and an aid in interpretation, copy and paste this link: https://nrl.testcatalog.org/show/hsTrop Current Interpretive Data last revised 2020. Blood 04/15/2024 5:34 PM SHIPFITTER 04/15/2024 5:41 PM SHIPFITTER Sal Arzola MD LAB BLOOD ORDERABLES Final Result Performing Organization Address [facility] Co de Phone Number [address] [address] * eGFR (04/15/2024 5:34 PM SHIPFITTER) [facility] eGFR >90 >=60 mL/min/1. 73 m2 Comment: Interpretive Data Reference Interval Normal >/= 90 mL/min/1.73m2 Mildly decreased* 60 - 89 mL/min/1.73m2 Mildly to moderately decreased 45 - 59 mL/min/1.73m2 Moderately to severely decreased 30 - 44 mL/min/1.73m2 Severely decreased 15 - 29 mL/min/1.73m2 Kidney Failure < 15 mL/min/1.73m2 *Relative to young adult level Estimated glomerular filtration rate is determined by the 2020 CKD-EPI equation recommended by the National Kid[employer] (A Unifying Approach to GFR Estimation: Recommendations of the NKF-ASK Task Force on Reassessing the Inclusion of Race in Diagnosing Kidney Disease, JASN 2020). The CKD-EPI equation should not be used for patients with unstable renal function and has not been validated in children and those over 70. Current interpretive data was last reviewed 2021. Blood 04/15/2024 5:34 PM SHIPFITTER 04/15/2024 5:41 PM SHIPFITTER us Sal Arzola MD LAB BLOOD ORDERABLES Final Result [facility] [address] [facility] Department [place] [address] * (ABNORMAL) Differential, auto (04/15/2024 5:34 PM SHIPFITTER) [facility] Neutrophil abs 7.8(H) 1.5 - 6.5 K/cumm Imm gran abs 0.0 0.0 - 0.1 K/cumm [facility] Lymphocyte abs 4.1(H) 0.8 - 3.3 K/cumm [facility] Monocyte abs 0.7 0.2 - 0.8 K/cumm [facility] Eosinophil abs 0.2 0.0 - 0.5 K/cumm [facility] Basophil abs 0.1 0.0 - 0.1 K/cumm [facility] Neutrophil pct 60.8 % [facility] Comment: Interpretive Data Percent cell count reference ranges are not reported, since discordance with absolute values may lead to misinterpretation of CBC data. Current Interpretive Data was last revised on 2017. Imm gran pct 0.2 % [facility] Comment: Interpretive Data Percent cell count reference ranges are not reported, since discordance with absolute values may lead to misinterpretation of CBC data. Current Interpretive Data was last revised on 2017. Lymphocyte pct 32.1 % [facility] Comment: Interpretive Data Percent cell count reference ranges are not reported, since discordance with absolute values may lead to misinterpretation of CBC data. Current Interpretive Data was last revised on 2017. Monocyte pct 5.2 % [facility] Comment: Interpretive Data Percent cell count reference ranges are not reported, since discordance with absolute values may lead to misinterpretation of CBC data. Current Interpretive Data was last revised on 2017. Eosinophil pct 1.3 % [facility] Comment: Interpretive Data Percent cell count reference ranges are not reported, since discordance with absolute values may lead to misinterpretation of CBC data. Current Interpretive Data was last revised on 2017. Basophil pct 0.4 % [facility] Comment: Interpretive Data Percent cell count reference ranges are not reported, since discordance with absolute values may lead to misinterpretation of CBC data. Current Interpretive Data was last revised on 2017. Blood 04/15/2024 5:34 PM SHIPFITTER 04/15/2024 5:41 PM SHIPFITTER us Sal Arzola MD LAB BLOOD ORDERABLES Final Result [facility] [address] [facility] Department [place] [address] * (ABNORMAL) CBC with auto differential (04/15/2024 5:34 PM SHIPFITTER) WBC 12.8(H) 3.8 - 9.9 K/cumm Hgb 12.8 11.9 - 15.5 g/dL [facility] Hct 38.4 35.6 - 45.5 % [facility] Plt 433(H) 150 - 400 K/cumm [facility] MPV 8.8(L) 9.1 - 12.3 fL [facility] RBC 4.34 3.90 - 5.20 M/cumm [facility] MCV 88.5 81.3 - 96.4 fL [facility] MCH 29.5 27.1 - 33.3 pg [facility] MCHC 33.3 32.3 - 35.7 g/dL [facility] RDW CV 12.4 11.1 - 14.9 % [facility] RDW SD 39.8 35.7 - 48.1 fL [facility] NRBC abs 0.00 0.00 - 0.01 K/cumm [facility] Blood (Blood, Venous) 04/15/2024 5:34 PM SHIPFITTER 04/15/2024 5:41 PM SHIPFITTER us Sal Arzola MD LAB BLOOD ORDERABLES Final Result [facility] [address] [facility] Department [place] [address] * (ABNORMAL) Comprehensive metabolic panel (04/15/2024 5:34 PM SHIPFITTER) Sodium 138 135 - 145 mmol/L Potassium, pl 3.5 3.3 - 4.9 mmol/L [facility] Chloride 102 97 - 110 mmol/L [facility] CO2 23 22 - 32 mmol/L [facility] Anion gap 13 2 - 15 mmol/L [facility] BUN 9 6 - 25 mg/dL [facility] Creatinine 0.42(L) 0.60 - 1.10 mg/dL [facility] Glucose 98 70 - 199 mg/dL [facility] Comment: Interpretive Data Fasting glucose >/= 126 mg/dl is diagnostic for diabetes. Fasting is defined as no caloric intake for at least 8 hours. Fasting glucose between 100 mg/dl to 125 mg/dl is diagnostic of prediabetes. In a patient with classic symptoms of hyperglycemia or hyperglycemic crisis, a random glucose >/= 200 mg/dl is diagnostic for diabetes. In the absence of unequivocal hyperglycemia, results should be confirmed by repeat testing. The classification and Diagnosis of Diabetes Diabetes Care 2021; 46: S19-S40. Current interpretive data was last revised 2022. Calcium 9.9 8.5 - 10.3 mg/dL [facility] Bilirubin, total 0.2 0.1 - 1.2 mg/dL [facility] Protein, pl 7.6 6.5 - 8.5 g/dL [facility] Albumin 4.2 3.5 - 5.0 g/dL [facility] Alk phos 72 40 - 130 Units/L [facility] ALT 21 7 - 45 Units/L [facility] AST 19 10 - 45 Units/L [facility] Blood 04/15/2024 5:34 PM SHIPFITTER 04/15/2024 5:41 PM SHIPFITTER us Sal Arzola MD LAB BLOOD ORDERABLES Final Result Performing Organization Address City/[facility] Co de Phone Number [facility] [address] [facility] Department [place] [address] * ECG 12 lead (04/15/2024 5:22 PM SHIPFITTER) Ventricular Rate EKG/Min 120 BPM [facility] Atrial Rate 120 BPM [facility] WV-Interval (MSEC) 158 ms [facility] QRS-Interval (MSEC) 68 ms [facility] QT-Interval (MSEC) 300 ms [facility] QTc 424 ms [facility] P [place] 45 degrees [facility] R [place] 5 degrees [facility] T [place] 24 degrees [facility] Diagnosis Sinus tachycardia Otherwise normal ECG Abnormal ECG No previous ECGs available Confirmed by BLANCA KIRBY M.D. ([id number]) on 04/17/2024 10:07:40 AM [facility] 04/15/2024 5:22 PM SHIPFITTER 04/17/2024 10:07 AM SHIPFITTER us Sal Arzola MD ECG ORDERABLES Final Resu lt Performing Organization Address City/[facility]/ZIP Co de Phone Number [facility] from Last 3 Months Insurance [facility] IDPA [facility] Care Teams Rn Clinical Relationship Specialty Start Date End Date Geena Pandya PA [address] [place] [id number] PCP - General Physician Manager Room 05/18/24
--- OUTSIDE RECORDS SUMMARY | 2024-07-09 15:48 | XMS_ITS | Referral Summary ---
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); Neck pain; Leg cramps 06/29/2024 8:30 AM SEAT PACK INSPECTOR Office Visit [facility] Rheumatology [address] [place] [address] 5th [place] [address] Alyssa Franco MD PhD Positive EMILY (antinuclear antibody) (Primary Dx); 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); History of miscarriage; Chronic nonintractable headache, unspecified headache type; Rosacea; Neck pain; Leg cramps; History of urticaria 05/17/2024 11:57 PM [facility] - 05/18/2024 12:45 AM [facility] Emergency [address] [address] Chest pain, unspecified type (Primary Dx); Chest wall pain; Acute bilateral thoracic back pain; Strain of neck muscle, initial encounter Discharge Disposition: Discharge to home or self care 04/15/2024 6:56 PM SEAT PACK INSPECTOR - 04/16/2024 12:[address] [address] Sal Arzola MD Casner, Teya Christie, MD Epigastric pain (Primary Dx); Uses Burkinan as primary spoken language; Chest discomfort Discharge Disposition: Discharge to home or self care from Last 3 Months Allergies Active Allergy Reactions Criticality Noted Date [...] due to varicose veins of lower extremity 11/14/19 24 06/29/2024 Social History Tobacco Use Types Packs/Day Years [...] on file Sexual Orientation Not on file Last Filed Vital Signs Vital Sign Reading Time Taken Comments Blood Pressure 128/86 06/29/2024 8:05 AM SEAT PACK INSPECTOR Pulse 91 06/29/2024 8:05 AM SEAT PACK INSPECTOR Temperature 36.5 C (97.7 F) 06/29/2024 8:05 AM SEAT PACK INSPECTOR Respiratory Rate 18 05/18/2024 12:38 AM SEAT PACK INSPECTOR Oxygen Saturation 100% 05/18/2024 12:38 AM SEAT PACK INSPECTOR Inhaled Oxygen Concentration - - Weight 70.3 kg (155 lb) 06/29/2024 8:05 AM SEAT PACK INSPECTOR Height 162.6 cm (5' 4 ) 06/29/2024 8:05 AM SEAT PACK INSPECTOR Body Mass Index 26.61 06/29/2024 8:05 AM SEAT PACK INSPECTOR Plan of Treatment Not on file Procedures Procedure Name Priority Date/Time Associated Diagnosis Comments XR SHOULDER RIGHT 2 OR MORE VIEWS Schedule Routine, Read Routine (OP Routine) 06/29/2024 10:00 AM SEAT PACK INSPECTOR Neck pain XR SPINE CERVICAL 2 OR 3 VIEWS Schedule Routine, Read Routine (OP Routine) 06/29/2024 10:00 AM SEAT PACK INSPECTOR Neck pain XR SHOULDER LEFT 2 OR MORE VIEWS Schedule Routine, Read Routine (OP Routine) 06/29/2024 10:00 AM SEAT PACK INSPECTOR Neck pain WILDA-1 ANTIBODY Routine 06/29/2024 9:34 AM SEAT PACK INSPECTOR SCL 70 ANTIBODIES Routine 06/29/2024 9:3 4 AM SEAT PACK INSPECTOR TIER OVER ANTIBODIES Routine 06/29/2024 9:34 AM SEAT PACK INSPECTOR CORNELL ANTIBODIES Routine 06/29/2024 9:34 AM SEAT PACK INSPECTOR SJOGRENS SYNDROME-B ANTIBODY Routine 06/29/2024 9:34 AM SEAT PACK INSPECTOR SJOGRENS SYNDROME-A ANTIBODY Routine 06/29/2024 9:34 AM SEAT PACK INSPECTOR JANET ANTIBODY EVALUATION WITH REFLEX Routine 06/29/2024 9:34 AM SEAT PACK INSPECTOR 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) ANTI-DOUBLE STRANDED DNA ANTIBODIES Routine 06/29/2024 9:34 AM SEAT PACK INSPECTOR 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) CYCLIC CITRUL PEPTIDE ANTIBODY, IGG Routine 06/29/2024 9:34 AM SEAT PACK INSPECTOR 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) Positive EMILY (antinuclear antibody) EMILY SCREEN W/REFLEX JANET+DSDNA Routine 06/29/2024 9:34 AM SEAT PACK INSPECTOR 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) ERYTHROCYTE SEDIMENTATION RATE Routine 06/29/2024 9:34 AM SEAT PACK INSPECTOR 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) C4 COMPLEMENT Routine 06/29/2024 9:34 AM SEAT PACK INSPECTOR 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) C3 COMPLEMENT Routine 06/29/2024 9:34 AM SEAT PACK INSPECTOR 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) BETA 2 GLYCOPROTEIN IGG AB Routine 06/29/2024 9:34 AM SEAT PACK INSPECTOR 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) BETA 2 GLYCOPROTEIN IGM AB Routine 06/29/2024 9:34 AM SEAT PACK INSPECTOR 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) CARDIOLIPIN ANTIBODY, IGG Routine 06/29/2024 9:34 AM SEAT PACK INSPECTOR 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) CARDIOLIPIN ANTIBODY, IGM Routine 06/29/2024 9:34 AM SEAT PACK INSPECTOR 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) LUPUS ANTICOAGULANT PANEL PLUS REFLEXES Routine 06/29/2024 9:34 AM SEAT PACK INSPECTOR 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) PROTEIN / CREATININE RATIO, URINE, RANDOM Routine 06/29/2024 9:34 AM SEAT PACK INSPECTOR 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) RHEUMATOID FACTOR Routine 06/29/2024 9:3 4 AM SEAT PACK INSPECTOR Neck pain MAGNESIUM Routine 06/29/2024 9:34 AM SEAT PACK INSPECTOR Leg cramps CRP (ACUTE PHASE) Routine 06/29/2024 9:3 4 AM SEAT PACK INSPECTOR Neck pain COMPREHENSIVE METABOLIC PANEL Routine 06/29/2024 9:34 AM SEAT PACK INSPECTOR 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) CBC WITH AUTO DIFFERENTIAL Routine 06/29/2024 9:34 AM SEAT PACK INSPECTOR 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) URINALYSIS AND REFLEX TO MICROSCOPIC AND CULTURE Routine 06/29/2024 9:34 AM SEAT PACK INSPECTOR 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) HEPATITIS C ANTIBODY Routine 06/29/2024 9:34 AM SEAT PACK INSPECTOR 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) Positive EMILY (antinuclear antibody) HEPATITIS B CORE ANTIBODY, TOTAL Routine 06/29/2024 9:34 AM SEAT PACK INSPECTOR 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) Positive EMILY (antinuclear antibody) HEPATITIS B SURFACE ANTIBODY (IMMUNE STATUS) Routine 06/29/2024 9:34 AM SEAT PACK INSPECTOR 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) Positive EMILY (antinuclear antibody) HEPATITIS B SURFACE ANTIGEN Routine 06/29/2024 9:34 AM SEAT PACK INSPECTOR 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) Positive EMILY (antinuclear antibody) T-SPOT.TB Routine 06/29/2024 9:34 AM SEAT PACK INSPECTOR 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) Positive EMILY (antinuclear antibody) CT CHEST PE W CONTRAST ED 05/17/2024 11:12 PM SEAT PACK INSPECTOR LIPASE Timed 05/17/2024 7:05 PM SEAT PACK INSPECTOR TROPONIN T HIGH-SENSITIVITY 2-HOUR Timed 05/17/2024 7:05 PM SEAT PACK INSPECTOR HCG, BLOOD, QUANTITATIVE Add-On 05/17/2024 7:03 PM SEAT PACK INSPECTOR XR CHEST 1 VIEW ED 05/17/2024 5:24 PM SEAT PACK INSPECTOR EGFR STAT 05/17/2024 5:22 PM SEAT PACK INSPECTOR DIFFERENTIAL AUTO STAT 05/17/2024 5:2 2 PM SEAT PACK INSPECTOR TROPONIN T HIGH-SENSITIVITY SERIES (BASELINE, 2HR, 4HR, 6HR) STAT 05/17/2024 5:22 PM SEAT PACK INSPECTOR COMPREHENSIVE METABOLIC PANEL STAT 05/17/2024 5:22 PM SEAT PACK INSPECTOR CBC WITH AUTO DIFFERENTIAL STAT 05/17/2024 5:22 PM SEAT PACK INSPECTOR ECG 12-LEAD STAT 05/17/2024 5:12 PM SEAT PACK INSPECTOR LACTATE STAT 04/15/2024 10:51 PM SEAT PACK INSPECTOR HEMOGLOBIN AND HEMATOCRIT Routine 04/15/2024 10:51 PM SEAT PACK INSPECTOR CTA ABDOMEN PELVIS W WO CONTRAST ED 04/15/2024 8:47 PM SEAT PACK INSPECTOR LIPASE Add-On 04/15/2024 8:10 PM SEAT PACK INSPECTOR TROPONIN T HIGH-SENSITIVITY 2-HOUR Timed 04/15/2024 8:10 PM SEAT PACK INSPECTOR XR CHEST 1 VIEW ED 04/15/2024 5:50 PM SEAT PACK INSPECTOR POCT HCG, URINE Routine 04/15/2024 5:41 PM SEAT PACK INSPECTOR URINALYSIS, MICROSCOPIC ONLY STAT 04/15/2024 5:37 PM SEAT PACK INSPECTOR URINALYSIS AND REFLEX TO MICROSCOPIC AND CULTURE STAT 04/15/2024 5:37 PM SEAT PACK INSPECTOR EGFR STAT 04/15/2024 5:34 PM SEAT PACK INSPECTOR DIFFERENTIAL AUTO STAT 04/15/2024 5:3 4 PM SEAT PACK INSPECTOR TROPONIN T HIGH-SENSITIVITY SERIES (BASELINE, 2HR, 4HR, 6HR) STAT 04/15/2024 5:34 PM SEAT PACK INSPECTOR COMPREHENSIVE METABOLIC PANEL STAT 04/15/2024 5:34 PM SEAT PACK INSPECTOR CBC WITH AUTO DIFFERENTIAL STAT 04/15/2024 5:34 PM SEAT PACK INSPECTOR ECG 12-LEAD STAT 04/15/2024 5:22 PM SEAT PACK INSPECTOR from Last 3 Months Results * XR Shoulder Right 2 or More Views (06/29/2024 10:00 AM SEAT PACK INSPECTOR) Anatomical Region Laterality Modality Upper Extremities, Shoulder Right Comp uted Radiography 06/29/2024 10:2 3 AM SEAT PACK INSPECTOR Impressions 06/29/2024 10:23 AM SEAT PACK INSPECTOR 1. Normal radiographic examinations of the cervical spine and shoulders. Electronically signed by: Perez Beatty M.D. Narrative 06/29/2024 10:23 AM SEAT PACK INSPECTOR EXAMINATION: XR SHOULDER LEFT 2 OR MORE [...] shoulders. Electronically signed by: Perez Beatty M.D. [facility] Bharait Franco MD PhD IMG XR PROCEDURES F inal Result * XR Shoulder Left 2 or More Views (06/29/2024 10:00 AM SEAT PACK INSPECTOR) Anatomical Region Laterality Modality Upper Extremities, Shoulder Left Comp uted Radiography 06/29/2024 10:2 3 AM SEAT PACK INSPECTOR Impressions 06/29/2024 10:23 AM SEAT PACK INSPECTOR 1. Normal radiographic examinations of the cervical spine and shoulders. Electronically signed by: Perez Beatty M.D. Narrative 06/29/2024 10:23 AM SEAT PACK INSPECTOR EXAMINATION: XR SHOULDER LEFT 2 OR MORE [...] shoulders. Electronically signed by: Perez Beatty M.D. [facility] Bharati Franco MD PhD IMG XR PROCEDURES F inal Result * XR Spine Cervical 2 or 3 Views (06/29/2024 10:00 AM SEAT PACK INSPECTOR) Anatomical Region Laterality Modality Spine N/A Computed Radiogr aphy 06/29/2024 10:2 3 AM SEAT PACK INSPECTOR Impressions 06/29/2024 10:23 AM SEAT PACK INSPECTOR 1. Normal radiographic examinations of the cervical spine and shoulders. Electronically signed by: Perez Beatty M.D. Narrative 06/29/2024 10:23 AM SEAT PACK INSPECTOR EXAMINATION: XR SHOULDER LEFT 2 OR MORE [...] shoulders. Electronically signed by: Perez Beatty M.D. [facility] Bharati Franco MD PhD IMG XR PROCEDURES F inal Result * (ABNORMAL) EMILY screen w/rflx JANET+dsDNA (06/29/2024 9:34 AM SEAT PACK INSPECTOR) EMILY Positive 1:160 Comment: Interpretive Data Normal [...] revised on 2020. EMILY, quant 1:160 titer [facility] EMILY, interp Homogeneous (A) [facility] Blood 06/29/2024 9:34 AM SEAT PACK INSPECTOR 06/29/2024 10:45 AM SEAT PACK INSPECTOR us Lashayy Bharati Franco MD PhD LAB BLOOD ORDERABLE S Final Result [facility] [place] [address] * Lupus Anticoagulant Panel plus Reflexes (06/29/2024 9:34 AM SEAT PACK INSPECTOR) PT 11.8 9.7 - 13.0 sec INR 1.09 0.90 - 1.20 [facility] Comment: Interpretive data Oral anticoagulant therapeutic ranges: Venous thromboembolism prophylaxis or treatment: 2.0-3.0 CARDIOLOGY Standard range: 2.0-3.0 High-intensity range: 2.5-3.5 Refer to indication-specific guidelines for appropriate target ranges for prosthetic heart valve replacement. Current interpretive data was last revised on 2019. aPTT 33 28 - 38 sec [facility] Comment: Interpretive Data Heparin therapeutic range: 66.0 - 100.0 seconds. Range based on correlation with therapeutic heparin activity range of 0.3 - 0.7 Units/mL. Current interpretive data was last revised on 2023. DRVVT screen ratio 1.01 0.00 - 1.20 Ratio [facility] SCT Screen Ratio 1.09 0.00 - 1.16 Ratio [facility] Lupus anticoagulant, interp Negative [facility] Comment: Interpretive data Lupus anticoagulants (LA) are [...] heparin. References: 1) Chan V, Varsha A, Annia JH, Orandreinal TL, Sonny M, De Jun PG. Update of the guidelines for lupus anticoagulant detection. J Thromb Haemost. 2009; 7:7406-4591. 2. Cory S. et al. International consensus statement on an update of the classification criteria for definite antiphospholipid syndrome (APS). J Thromb Haemost. 2006; 4:295-306. Current interpretive data was last revised on 2018 Blood 06/29/2024 9:34 AM SEAT PACK INSPECTOR 06/29/2024 10:45 AM SEAT PACK INSPECTOR [facility] Bharati Franco MD PhD LAB BLOOD ORDERABLE S Final Result [facility] [place] [address] * Anti-double stranded DNA abs (06/29/2024 9:34 AM SEAT PACK INSPECTOR) dsDNA Ab <1.0 <=4.0 IUnits/mL Comment: Interpretive Data Negative: < or = 4 IUnits/mL Indeterminate: 5 - 9 IUnits/mL Positive: > or = 10 IUnits/mL Current interpretive data was last revised on 2016. Blood 06/29/2024 9:34 AM SEAT PACK INSPECTOR 06/29/2024 10:58 AM SEAT PACK INSPECTOR Alyssa Franco MD PhD LAB BLOOD ORDERABLE S Final Result [facility] [place] [address] * T-SPOT.TB Blood (06/29/2024 9:34 AM SEAT PACK INSPECTOR) [facility] T-SPOT.TB Negative SeeBel Comment: Normal Value: Negative A negative test [...] test. T-SPOT.TB Panel A Spot Count 0 [facility] T-SPOT.TB Panel B Spot Count 1 [facility] T-SPOT.TB Negative Control Passed [facility] T-SPOT.TB Positive Control Passed [facility] Comment: Test Performed at: [facility], [place] [address] [place] [id number] JESUS IVORY,PHD Blood 06/29/2024 9:34 AM SEAT PACK INSPECTOR 06/29/2024 10:45 AM SEAT PACK INSPECTOR Alyssa Franco MD PhD LAB MICROBIOLOGY - GENERAL ORDERABLES Final Result [facility] [place] [address] * SCL 70 abs (06/29/2024 9:34 AM SEAT PACK INSPECTOR) Anti-Scl70, IgG <0.2 <=0.9 Ab Index Comment: Interpretive Data Negative: < 1.0 Ab Index Positive: > or = 1.0 Ab Index Current interpretive data was last revised on 2016. Blood 06/29/2024 9:34 AM SEAT PACK INSPECTOR 06/29/2024 10:58 AM SEAT PACK INSPECTOR Alyssa Franco MD PhD LAB BLOOD ORDERABLE S Final Result Performing Organization Address [facility] Co de Phone Number [facility] [place] [address] * Cornell abs (06/29/2024 9:34 AM SEAT PACK INSPECTOR) Anti-JANET, SM <0.2 <=0.9 Ab Index Comment: Interpretive Data Negative: < 1.0 Ab Index Positive: > or = 1.0 Ab Index Current interpretive data was last revised on 2016. Blood 06/29/2024 9:34 AM SEAT PACK INSPECTOR 06/29/2024 10:58 AM SEAT PACK INSPECTOR Alyssa Franco MD PhD LAB BLOOD ORDERABLE S Final Result Performing Organization Address City/[facility] Co de Phone Number [facility] [place] [address] * (ABNORMAL) TIER OVER abs (06/29/2024 9:34 AM SEAT PACK INSPECTOR) TIER OVER ab 1.2(H) <=0.9 Ab Index Comment: Interpretive Data Negative: < 1.0 Ab Index Positive: > or = 1.0 Ab Index Current interpretive data was last revised on 2016. Blood 06/29/2024 9:34 AM SEAT PACK INSPECTOR 06/29/2024 10:58 AM SEAT PACK INSPECTOR Alyssa Franco MD PhD LAB BLOOD ORDERABLE S Final Result Performing Organization Address City/[facility] Co de Phone Number [facility] [place] [address] * C4 complement (06/29/2024 9:34 AM SEAT PACK INSPECTOR) Complement C4 29.6 10.0 - 40.0 mg/dL Blood 06/29/2024 9:34 AM SEAT PACK INSPECTOR 06/29/2024 10:45 AM SEAT PACK INSPECTOR Result [facility] Alyssa Franco MD PhD LAB BLOOD ORDERABLE S Final Result Performing Organization Address [facility] de Phone Number [facility] [place] [address] * (ABNORMAL) JANET ab eval w/reflex (06/29/2024 9:34 AM SEAT PACK INSPECTOR) JANET ab Positive( A) Negative Comment: Interpretive Data Positive Screens will be reflexed to specific testing for Antibodies against the following antigens: Wilda-1 Ab, TIER OVER Ab, Scl-70 Ab, Cornell Ab, SS-A/Ro Ab, and SS- B/La Ab. Further testing for dsDNA, Centromere, or Ribosomal P antibodies is suggested in patient with a positive screen and negative specific antibodies. Current interpretive data was last revised on 2022. Blood 06/29/2024 9:34 AM SEAT PACK INSPECTOR 06/29/2024 10:58 AM SEAT PACK INSPECTOR Alyssa Franco MD PhD LAB BLOOD ORDERABLE S Final Result Performing Organization Address [facility] Co de Phone Number [facility] [place] [address] * Wilda-1 antibody (06/29/2024 9:34 AM SEAT PACK INSPECTOR) Wilda 1 Antibody, IgG <0.2 <=0.9 Ab Index Comment: Interpretive Data Negative: < 1.0 Ab Index Positive: > or = 1.0 Ab Index Current interpretive data was last revised on 2016. Blood 06/29/2024 9:34 AM SEAT PACK INSPECTOR 06/29/2024 10:[address] SEAT PACK INS[address]OR [facility] Bharati Franco MD PhD LAB BLOOD ORDERABLE S Final Result [facility] Department [place] [address] * Cardiolipin antibody, IgG (06/29/2024 9:34 AM SEAT PACK INSPECTOR) Cardiolipin, IgG <1.6 <=19.9 GPL U/mL Comment: [...] JOE. These results were obtained with the [employer] [facility] 2200 System. Cardiolipin IgG values obtained with different manufacturers' assay methods may not be used interchangeably. Current interpretive data was last revised on 2016. Blood 06/29/2024 9:34 AM SEAT PACK INSPECTOR 06/29/2024 10:45 AM SEAT PACK INSPECTOR Alyssa Franco MD PhD LAB BLOOD ORDERABLE S Final Result Performing Organization Address [facility] de Phone Number LUCIAN CONTRERAS S[facility] Department [place] [address] * Beta 2 glycoprotein IgM Ab (06/29/2024 9:34 AM SEAT PACK INSPECTOR) Beta-2 glycoprotein I, IgM 1.0 <=19.9 units/mL [...] factor. These results were obtained with the [employer] [facility] 2200 System. Beta-2 GP1 IgM values obtained with different manufacturers' assay methods may not be used interchangeably. Current interpretive data was last revised on 2016. Blood 06/29/2024 9:34 AM SEAT PACK INSPECTOR 06/29/2024 10:45 AM SEAT PACK INSPECTOR Alyssa Franco MD PhD LAB BLOOD ORDERABLE S Final Result Performing Organization Address City/[facility]/ZIP Co de Phone Number LUCIAN CONTRERAS [facility] Department [place] [address] * Beta 2 glycoprotein IgG Ab (06/29/2024 9:34 AM SEAT PACK INSPECTOR) Beta-2 glycoprotein I, IgG <1.4 <=19.9 units/mL Comment: Interpretive Data Negative: <20 U/mL Positive: > or = 20 U/mL Beta-2 glycoprotein 1 (Beta-2 GP1) antibodies are a more specific marker of thrombotic risk. It is expected that some samples will be ACL positive and Beta- 2 [id number]. In order to improve specificity, the International Congress on Antiphospholipid Antibodies recommends Beta-2 GP1 antibodies of IgG or IgM isotype (> the 99th percentile), obtained twice, at least 12 weeks apart, to support a diagnosis of antiphospholipid syndrome. The cutoff for this assay was developed from data based on the 99th percentile. These results were obtained with the [employer] [facility] 2200 System. Beta 2GP1 IgG values obtained with different manufacturers' assay methods may not be used interchangeably. Current interpretive data was last revised on 2016. Blood 06/29/2024 9:34 AM SEAT PACK INSPECTOR 06/29/2024 10:45 AM SEAT PACK INSPECTOR [facility] Bhar[facility] Franco MD PhD LAB BLOOD ORDERABLE S Final Result [facility] [place] [address] * Urinalysis reflex to microscopic and culture Urine (06/29/2024 9:34 AM SEAT PACK INSPECTOR) Color, ur Straw Yellow Clarity, ur Clear Clear [facility] Specific gravity, ur 1.005 1.003 - 1.030 [facility] pH, urine 7.0 [facility] Comment: Interpretive Data U rine pH is affected by diet, medications, systemic acid-base disturbances, and renal tubular function. pH may affect urinary stone formation. For example, urine pH below 6.0 may help reduce the tendency for calcium phosphate stones and pH greater than 6.0 may reduce the tendency for uric acid stone formation. Source: [facility] [employer] Current Interpretive Data was last revised on 2017 Protein, ur ql Negative Negative [facility] Glucose, ur ql Negative Negative [facility] Ketones, ur Negative Negative [facility] Bilirubin, ur Negative Negative [facility] Blood, ur Negative Negative [facility] Urobilinogen, ur <2.0 <2.0 mg/dL [facility] Nitrite, ur Negative Negative [facility] Leukocyte esterase, ur Negative Negative [facility] UA reflex comment Reflex conditions for microscopic UA and culture not met. [facility] Urine 06/29/2024 9:34 AM SEAT PACK INSPECTOR 06/29/2024 10:45 AM SEAT PACK INSPECTOR us Lashayy Bharati Franco MD PhD LAB MICROBIOLOGY - GENERAL ORDERABLES Final Result [facility] [place] [address] * CBC with auto differential (06/29/2024 9:34 AM SEAT PACK INSPECTOR) White Blood Count 7.7 3.6 - 11.2 [...] [facility] Blood 06/29/2024 9:34 AM SEAT PACK INSPECTOR 06/29/2024 10:51 AM SEAT PACK INSPECTOR Alyssa Franco MD PhD LAB BLOOD ORDERABLE S Final Result Performing Organization Address [facility] Co de Phone Number [facility] * Hepatitis C antibody Blood (06/29/2024 9:34 AM SEAT PACK INSPECTOR) Pathologist [facility] Hep C Ab Nonreactive Nonreactive Comment:Antibodies to HCV no t detected. Does NOT exclude the possibility of recent exposure to HCV. Current interpretive data was last revised on 22 Blood 06/29/2024 9:34 AM SEAT PACK INSPECTOR 06/29/2024 10:45 AM SEAT PACK INSPECTOR Alyssa Franco MD PhD LAB MICROBIOLOGY - GENERAL ORDERABLES Final Result Performing Organization Address [facility] de Phone Number [facility] [place] [address] * Cyclic citrul peptide antibody, IgG (06/29/2024 9:34 AM SEAT PACK INSPECTOR) Pathologist [facility] CCP Ab <0.5 <=2.9 units/mL Comment: Interpretive data Negative: <3 units/mL Positive: > or equal to 3 units/mL Current interpretive data was last revised on 2016. Blood 06/29/2024 9:34 AM SEAT PACK INSPECTOR 06/29/2024 10:45 AM SEAT PACK INSPECTOR Alyssa Franco MD PhD LAB BLOOD ORDERABLE S Final Result Performing Organization Address [facility] de Phone Number [facility] [place] [address] * Protein / creatinine ratio, urine, random (06/29/2024 9:34 AM SEAT PACK INSPECTOR) Protein, ur, quant <5.0 mg/dL Comment: Interpretive Data No reference range established. Current interpretive data was last revised 2018. Creatinine Ur 29.9 mg/dL [facility] Comment: Interpretive Data No reference range established. Current interpretive data was last revised 2018. Protein/creatinin e ratio <167.2 0.0 - 180.0 mg/g CR [facility] Urine 06/29/2024 9:34 AM SEAT PACK INSPECTOR 06/29/2024 10:45 AM SEAT PACK INSPECTOR us Intelly Bharati Franco MD PhD LAB URINE ORDERABLE S Final Result [facility] Department [place] [address] * Cardiolipin antibody, IgM (06/29/2024 9:34 AM SEAT PACK INSPECTOR) Pathologist [facility] Cardiolipin, IgM 1.1 <=19.9 MPL U/mL Comment: [...] antibodies. These results were obtained with the [employer]lex 2200 System. Cardiolipin IgM values obtained with different manufacturers' assay methods may not be used interchangeably. Current interpretive data was last revised on 2016. Blood 06/29/2024 9:34 AM SEAT PACK INSPECTOR 06/29/2024 10:45 AM SEAT PACK INSPECTOR Alyssa Franco MD PhD LAB BLOOD ORDERABLE S Final Result Performing Organization Address City/[facility] Co de Phone Number [facility] [place] [address] * Hepatitis B core antibody, total Blood (06/29/2024 9:34 AM SEAT PACK INSPECTOR) Hep B core IgG/IgM Nonreactive Nonreactive Blood 06/29/2024 9:34 AM SEAT PACK INSPECTOR 06/29/2024 10:45 AM SEAT PACK INSPECTOR Alyssa Franco MD PhD LAB MICROBIOLOGY - GENERAL ORDERABLES Final Result Performing Organization Address [facility] Co de Phone Number [facility] [place] [address] * Hepatitis B surface antibody (immune status) Blood (06/29/2024 9:34 AM SEAT PACK INSPECTOR) HBsAb (immune status) Nonreactive Comment:This result is consi stent with a lack of immunity to Hepatitis B Virus when used in the setting of routine screening. Current interpretative data was last revised on 22 Blood 06/29/2024 9:34 AM SEAT PACK INSPECTOR 06/29/2024 10:45 AM SEAT PACK INSPECTOR us Alyssa Franco MD PhD LAB MICROBIOLOGY - GENERAL ORDERABLES Final Result Performing Organization Address City/[facility] Co de Phone Number [facility] [place] [address] * Hepatitis B Surface Antigen Blood (06/29/2024 9:34 AM SEAT PACK INSPECTOR) HepBsAg Nonreactive Nonreactive Blood 06/29/2024 9:34 AM SEAT PACK INSPECTOR 06/29/2024 10:45 AM SEAT PACK INSPECTOR Alyssa Franco MD PhD LAB MICROBIOLOGY - GENERAL ORDERABLES Final Result Performing Organization Address [facility] de Phone Number [facility] Department [place] [address] * Sjogren's syndrome B ab (06/29/2024 9:34 AM SEAT PACK INSPECTOR) Anti-JANET, SS-B <0.2 <=0.9 Ab Index Comment: Interpretive Data Negative: < 1.0 Ab Index Positive: > or = 1.0 Ab Index Current interpretive data was last revised on 2016. Blood 06/29/2024 9:34 AM SEAT PACK INSPECTOR 06/29/2024 10:58 AM SEAT PACK INSPECTOR Alyssa Franco MD PhD LAB BLOOD ORDERABLE S Final Result Performing Organization Address [facility] de Phone Number [facility] [place] [address] * Sjogren's syndrome A ab (06/29/2024 9:34 AM SEAT PACK INSPECTOR) Anti-JANET, SS-A <0.2 <=0.9 Ab Index Comment: Interpretive Data Negative: < 1.0 Ab Index Positive: > or = 1.0 Ab Index Current interpretive data was last revised on 2016. Blood 06/29/2024 9:34 AM SEAT PACK INSPECTOR 06/29/2024 10:58 AM SEAT PACK INSPECTOR Alyssa Franco MD PhD LAB BLOOD ORDERABLE S Final Result Performing Organization Address [facility] Phone Number [facility] [place] [address] * Erythrocyte sedimentation rate (06/29/2024 9:34 AM SEAT PACK INSPECTOR) [facility] Erythrocyte sedimentation rate 20 1 - 20 mm/hr Blood 06/29/2024 9:34 AM SEAT PACK INSPECTOR 06/29/2024 10:45 AM SEAT PACK INSPECTOR Alyssa Franco MD PhD LAB BLOOD ORDERABLE S Final Result Performing Organization Address [facility] [place] [address] * Rheumatoid factor (06/29/2024 9:34 AM SEAT PACK INSPECTOR) [facility] Rheumatoid factor, quant <10.0 0.1 - 15.0 IUnits/mL Blood 06/29/2024 9:34 AM SEAT PACK INSPECTOR 06/29/2024 10:45 AM SEAT PACK INSPECTOR Alyssa Franco MD PhD LAB BLOOD ORDERABLE S Final Result Performing Organization Address [facility]/[place] [address] * (ABNORMAL) C3 complement (06/29/2024 9:34 AM SEAT PACK INSPECTOR) [facility] Complement C3 300.0(H) 90.0 - 180.0 mg/dL Blood 06/29/2024 9:34 AM SEAT PACK INSPECTOR 06/29/2024 10:45 AM SEAT PACK INSPECTOR us Alyssa Franco MD PhD LAB BLOOD ORDERABLE S Final Result Performing Organization Address [facility] Co de Phone Number [facility] [place] [address] * CRP (acute phase) (06/29/2024 9:34 AM SEAT PACK INSPECTOR) Pathologist [facility] C-Reactive Protein, Acute <3.0 <5.0 mg/L [facility] Blood 06/29/2024 9:34 AM SEAT PACK INSPECTOR 06/29/2024 10:51 AM SEAT PACK INSPECTOR Alyssa Franco MD PhD LAB BLOOD ORDERABLE S Final Result Performing Organization Address City/[facility] Co de Phone Number [facility] CORE [facility] * Magnesium (06/29/2024 9:34 AM SEAT PACK INSPECTOR) Pathologist [facility] Magnesium 2.2 1.6 - 2.6 mg/dL [facility] Blood 06/29/2024 9:34 AM SEAT PACK INSPECTOR 06/29/2024 10:51 AM SEAT PACK INSPECTOR Alyssa Franco MD PhD LAB BLOOD ORDERABLE S Final Result Performing Organization Address [facility] de Phone Number [facility] CORE [facility] * (ABNORMAL) Comprehensive metabolic panel (06/29/2024 9:34 AM SEAT PACK INSPECTOR) Pathologist [facility] Total Protein 8.1 6.1 - 8.4 g/dL [...] [facility] Blood 06/29/2024 9:34 AM SEAT PACK INSPECTOR 06/29/2024 10:51 AM SEAT PACK INSPECTOR us Intelly Bharati Franco MD PhD LAB BLOOD ORDERABLE S Final Result [facility] * CT Chest PE (CTA) W Contrast (05/17/2024 11:12 PM SEAT PACK INSPECTOR) Anatomical Region Laterality Modality Body N/A Computed Tomogra phy 05/17/2024 11:3 5 PM SEAT PACK INSPECTOR Narrative 05/17/2024 11:38 PM SEAT PACK INSPECTOR EXAM DESCRIPTION: CT CHEST PE (CTA) W CONTRAST REASON FOR STUDY: chest pain Presents to ED from home with c/o left arm numbness, CP, and back pain while cooking. Reports feeling a little nauseous right now. Being seen by Dr. Vaz to be evaluated for lupus. Hx gastritis translating during triage, pt refused bell captain TECHNIQUE: CT angiogram of the chest performed [...] Alexi Fischer M.D. KT T: Report ID: [id number] Reading Location: [place] [address] Procedure Note Alexi Fischer MD - 05/17/2024 EXAM DESCRIPTION: CT CHEST PE (CTA) W CONTRAST REASON FOR STUDY: chest pain Presents to ED from home with c/o left arm numbness, CP, and back painwhile cooking. Reports feeling a little nauseous right now. Being seen by to be evaluated for lupus. Hx gastritis translating during triage, pt refused bell captain TECHNIQUE: CT angiogram of the chest performed [...] Alexi Fischer M.D. KT T: Report ID: [id number] Reading Location: [place] [address] us Sal Arzola MD IMG CT PROCEDURES Final Re sult * Troponin T high-sensitivity 2-hour (05/17/2024 7:05 PM SEAT PACK INSPECTOR) [facility] Trop T hs <6 <=14 ng/L Comment: Interpretive Data For further hscTnT resources including the diagnostic algorithm and an aid in interpretation, copy and paste this link: https://nrl.testcatalog.org/show/hsTrop Current Interpretive Data last revised 2020. Trop T hs delta 0 ng/L [facility] Trop T hs interp Insignificant [facility] Blood 05/17/2024 7:05 PM SEAT PACK INSPECTOR 05/17/2024 7:07 PM SEAT PACK INSPECTOR Sal Arzola MD LAB BLOOD ORDERABLES Final Result Performing Organization Address [facility] Co de Phone Number [address] [place] [address] * Lipase (05/17/2024 7:05 PM SEAT PACK INSPECTOR) [facility] Lipase 43 10 - 99 Units/L Blood 05/17/2024 7:05 PM SEAT PACK INSPECTOR 05/17/2024 7:07 PM SEAT PACK INSPECTOR Sal Arzola MD LAB BLOOD ORDERABLES Final Result Performing Organization Address [facility] Co de Phone Number [address] [address] * hCG, blood, quantitative (05/17/2024 7:03 PM SEAT PACK INSPECTOR) [facility] hCG, quant <5.0 0.0 - 5.0 IUnits/L Comment: Interpretive Data Male: < 5 IU/L Non- premenopausal Female: <5 IU/L The [employer] hCG Beta Quant assay procedure was used. Results from different manufacturers or methods may not be comparable. Serial testing should be performed using the same method. Interpretive Data was last revised on 2023 Blood 05/17/2024 7:03 PM SEAT PACK INSPECTOR 05/17/2024 9:38 PM SEAT PACK INSPECTOR us Sal Arzola MD LAB BLOOD ORDERABLES Final Result [facility] [address] [facility] Department [place] [address] * XR Chest 1 Vw Portable (if patient condition/safety warrant portable) (05/17/2024 5:24 PM SEAT PACK INSPECTOR) Anatomical Region Laterality Modality Body, Chest N/A Computed Radiogr aphy 05/17/2024 5:55 PM SEAT PACK INSPECTOR Narrative 05/17/2024 5:56 PM SEAT PACK INSPECTOR EXAM DESCRIPTION: XR CHEST 1 VIEW REASON FOR STUDY: chest pain Presents to ED from home with c/o left arm numbness, CP, and back pain while cooking. Reports feeling a little nauseous right now. Being seen by Dr. Vaz to be evaluated for lupus. Hx gastritis translating during triage, pt refused bell captain TECHNIQUE: 1 radiographic view(s) of the chest. COMPARISON: 04/15/2024 FINDINGS: LUNGS: No focal opacity, pleural effusion, or pneumothorax. HEART/MEDIASTINUM: Cardiac silhouette normal in size. Mediastinal and hilar contours appear normal. LINES/TUBES: None. BONES: No acute osseous abnormality. IMPRESSION: No acute cardiopulmonary abnormality. THIS IS AN ELECTRONICALLY VERIFIED FINAL REPORT 05/17/2024 5:56 PM - Electronically signed by Alexi Vale M.D. KR T: Report ID: [id number] Reading Location: [id number] Procedure Note Alexi Vale MD - 05/17/2024 EXAM DESCRIPTION: XR CHEST 1 VIEW REASON FOR STUDY: chest pain Presents to ED from home with c/o left arm numbness, CP, and back painwhile cooking. Reports feeling a little nauseous right now. Being seen by to be evaluated for lupus. Hx gastritis translating during triage, pt refused bell captain TECHNIQUE: 1 radiographic view(s) of the chest. COMPARISON: 04/15/2024 FINDINGS: LUNGS: No focal opacity, pleural effusion, or pneumothorax. HEART/MEDIASTINUM: Cardiac silhouette normal in size. Mediastinal andhilar contours appear normal. LINES/TUBES: None. BONES: No acute osseous abnormality. IMPRESSION: No acute cardiopulmonary abnormality. THIS IS AN ELECTRONICALLY VERIFIED FINAL REPORT 05/17/2024 5:56 PM - Electronically signed by Alexi Vale M.D. KR T: Report ID: [id number] Reading Location: [place] [address] Sal Arzola MD IMG XR PROCEDURES Final Re sult * Troponin T high-sensitivity series (baseline, 2hr, 4hr, 6hr) (05/17/2024 5:22 PM SEAT PACK INSPECTOR) [facility] Trop T hs <6 <=14 ng/L Comment: Interpretive Data For further hscTnT resources including the diagnostic algorithm and an aid in interpretation, copy and paste this link: https://nrl.testcatalog.org/show/hsTrop Current Interpretive Data last revised 2020. Blood 05/17/2024 5:22 PM SEAT PACK INSPECTOR 05/17/2024 5:27 PM SEAT PACK INSPECTOR Sal Arzola MD LAB BLOOD ORDERABLES Final Result [facility] [place] [address] * eGFR (05/17/2024 5:22 PM SEAT PACK INSPECTOR) [facility] eGFR >90 >=60 mL/min/1. 73 m2 Comment: [...] of Race in Diagnosing Kidney Disease, JASN 202). The CKD-EPI equation should not be used for patients with unstable renal function and has not been validated in children and those over 70. Current interpretive data was last reviewed 2021. Blood 05/17/2024 5:22 PM SEAT PACK INSPECTOR 05/17/2024 5:27 PM SEAT PACK INSPECTOR Sal Arzola MD LAB BLOOD ORDERABLES Final Result [facility] [address] [facility] Department of Laboratories [place], [place] [id number] * (ABNORMAL) Differential, auto (05/17/2024 5:22 PM SEAT PACK INSPECTOR) Neutrophil abs 8.8(H) 1.5 - 6.5 K/cumm Imm gran abs 0.0 0.0 - 0.1 K/cumm [facility] Lymphocyte abs 3.5(H) 0.8 - 3.3 K/cumm [facility] Monocyte abs 0.6 0.2 - 0.8 K/cumm [facility] Eosinophil abs 0.1 0.0 - 0.5 K/cumm [facility] Basophil abs 0.1 0.0 - 0.1 K/cumm [facility] Neutrophil pct 67.4 % [facility] Comment: Interpretive Data Percent cell count reference ranges are not reported, since discordance with absolute values may lead to misinterpretation of CBC data. Current Interpretive Data was last revised on 2017. Imm gran pct 0.2 % [facility] Comment: Interpretive Data Percent cell count reference ranges are not reported, since discordance with absolute values may lead to misinterpretation of CBC data. Current Interpretive Data was last revised on 2017. Lymphocyte pct 26.6 % [facility] Comment: Interpretive Data Percent cell count reference ranges are not reported, since discordance with absolute values may lead to misinterpretation of CBC data. Current Interpretive Data was last revised on 2017. Monocyte pct 4.9 % [facility] Comment: Interpretive Data Percent cell count reference ranges are not reported, since discordance with absolute values may lead to misinterpretation of CBC data. Current Interpretive Data was last revised on 2017. Eosinophil pct 0.5 % [facility] Comment: Interpretive Data Percent cell count reference ranges are not reported, since discordance with absolute values may lead to misinterpretation of CBC data. Current Interpretive Data was last revised on 2017. Basophil pct 0.4 % [facility] Comment: Interpretive Data Percent cell count reference ranges are not reported, since discordance with absolute values may lead to misinterpretation of CBC data. Current Interpretive Data was last revised on 2017. Blood 05/17/2024 5:22 PM SEAT PACK INSPECTOR 05/17/2024 5:27 PM SEAT PACK INSPECTOR us Sal Arzola MD LAB BLOOD ORDERABLES Final Result [facility] [address] [facility] Department of Laboratories [place], [place] [id number] * (ABNORMAL) CBC with auto differential (05/17/2024 5:22 PM SEAT PACK INSPECTOR) WBC 13.1(H) 3.8 - 9.9 K/cumm Hgb 13.3 11.9 - 15.5 g/dL [facility] Hct 39.7 35.6 - 45.5 % [facility] Plt 369 150 - 400 K/cumm [facility] MPV 9.2 9.1 - 12.3 fL [facility] RBC 4.46 3.90 - 5.20 M/cumm [facility] MCV 89.0 81.3 - 96.4 fL [facility] MCH 29.8 27.1 - 33.3 pg [facility] MCHC 33.5 32.3 - 35.7 g/dL [facility] RDW CV 12.9 11.1 - 14.9 % [facility] RDW SD 42.3 35.7 - 48.1 fL [facility] NRBC abs 0.00 0.00 - 0.01 K/cumm [facility] Blood (Blood, Venous) 05/17/2024 5:22 PM SEAT PACK INSPECTOR 05/17/2024 5:27 PM SEAT PACK INSPECTOR Sal Arzola MD LAB BLOOD ORDERABLES Final Result Performing Organization Address City/[facility]/ZIP Co de Phone Number [facility] [address] [facility] Department [place] [address] * (ABNORMAL) Comprehensive metabolic panel (05/17/2024 5:22 PM SEAT PACK INSPECTOR) Sodium 135 135 - 145 mmol/L Potassium, pl 3.5 3.3 - 4.9 mmol/L [facility] Chloride 101 97 - 110 mmol/L [facility] CO2 22 22 - 32 mmol/L [facility] Anion gap 12 2 - 15 mmol/L [facility] BUN 9 6 - 25 mg/dL [facility] Creatinine 0.39(L) 0.60 - 1.10 mg/dL [facility] Glucose 107 70 - 199 mg/dL [facility] Comment: Interpretive Data Fasting glucose >/= 126 [...] Calcium 9.5 8.5 - 10.3 mg/dL [facility] Bilirubin, total 0.3 0.1 - 1.2 mg/dL [facility] Protein, pl 7.8 6.5 - 8.5 g/dL [facility] Albumin 4.5 3.5 - 5.0 g/dL [facility] Alk phos 62 40 - 130 Units/L [facility] ALT 14 7 - 45 Units/L [facility] AST 10 10 - 45 Units/L [facility] Blood 05/17/2024 5:22 PM SEAT PACK INSPECTOR 05/17/2024 5:27 PM SEAT PACK INSPECTOR Sal Arzola MD LAB BLOOD ORDERABLES Final Result Performing Organization Address City/[facility]/ZIP Co de Phone Number [facility] [address] [facility] [place] [address] * ECG 12 lead (05/17/2024 5:12 PM SEAT PACK INSPECTOR) [facility] Ventricular Rate EKG/Min 106 BPM [facility] Atrial Rate 106 BPM [facility] [place]-Interval (MSEC) 138 ms [facility] QRS-Interval (MSEC) 78 ms [facility] QT-Interval (MSEC) 344 ms [facility] QTc 456 ms [facility] P [place] 44 degrees [facility] R [place] -8 degrees [facility] T [place] 37 degrees [facility] Diagnosis Sinus tachycardia Otherwise normal ECG When compared with ECG of 15-APR-2024 17:22, No significant change was found Confirmed by AUSTIN REBOLLEDO M.D. ([id number]) on 05/18/2024 3:23:38 PM [facility] 05/17/2024 5:12 PM SEAT PACK INSPECTOR 05/18/2024 3:23 PM SEAT PACK INSPECTOR us Sal Arzola MD ECG ORDERABLES Final Resu lt Performing Organization Address City/[facility]/ZIP Co de Phone Number [facility] * Lactate (04/15/2024 10:51 PM SEAT PACK INSPECTOR) [facility] Lactate 0.7 0.7 - 2.0 mmol/L Blood 04/15/2024 10:5 1 PM SEAT PACK INSPECTOR 04/15/2024 10:58 PM SEAT PACK INSPECTOR us Sal Arzola MD LAB BLOOD ORDERABLES Final Result Performing Organization Address City/[facility]/ZIP Co de Phone Number [facility] [address] [facility] Department [place] [address] * Hemoglobin and hematocrit (04/15/2024 10:51 PM SEAT PACK INSPECTOR) [facility] Hgb 12.3 11.9 - 15.5 g/dL Hct 36.7 35.6 - 45.5 % [facility] Blood 04/15/2024 10:5 1 PM SEAT PACK INSPECTOR 04/15/2024 10:58 PM SEAT PACK INSPECTOR us Sal Arzola MD LAB BLOOD ORDERABLES Final Result [facility] [address] [facility] [place] [address] * CTA Abdomen Pelvis (04/15/2024 8:47 PM SEAT PACK INSPECTOR) Anatomical Region Laterality Modality Body N/A Computed Tomogra phy 04/15/2024 9:23 PM SEAT PACK INSPECTOR Narrative 04/15/2024 9:27 PM SEAT PACK INSPECTOR EXAM DESCRIPTION: CTA ABDOMEN PELVIS REASON FOR STUDY: epigastric pain, possible GIB Pt arrives to ED via POV from home. Pt C/O multiple medical complaints. Pt endorses CP, heartburn, N/V, blood in urine and blood in stool x 1 week. Pt denies PROTER, SOB. NAD. Ax4. Burkinan speaking; translating per pt request. No known [...] Celeste Brooke M.D. AT T: Report ID: [id number] Reading Location: [place] [address] Procedure Note Celeste Brooke MD - 04/15/2024 EXAM DESCRIPTION: CTA ABDOMEN PELVIS REASON FOR STUDY: epigastric pain, possible GIB Pt arrives to ED via POV from home. Pt C/O multiple medical complaints. Pt endorses CP, heartburn, N/V, blood in urine and blood in stool x 1 week.Pt denies PORTER, SOB. NAD. Ax4. Burkinan speaking; translating per pt request. No known [...] 9:27 PM - Electronically signed by Celeste Humphreyasian M.D. AT T: Report ID: [id number] Reading Location: [id number] Sal Arzola MD IMG CT PROCEDURES Final Re sult * Troponin T high-sensitivity 2-hour (04/15/2024 8:10 PM SEAT PACK INSPECTOR) Pathologist [facility] Trop T hs <6 <=14 ng/L Comment: Interpretive Data For further hscTnT resources including the diagnostic algorithm and an aid in interpretation, copy and paste this link: https://nrl.testcatalog.org/show/hsTrop Current Interpretive Data last revised 2020. Trop T hs delta 0 ng/L [facility] Trop T hs interp Insignificant [facility] Blood 04/15/2024 8:10 PM SEAT PACK INSPECTOR 04/15/2024 8:14 PM SEAT PACK INSPECTOR Sal Arzola MD LAB BLOOD ORDERABLES Final Result Performing Organization Address City/[facility] Co de Phone Number [address] [employer] [place] [address] * Lipase (04/15/2024 8:10 PM SEAT PACK INSPECTOR) [facility] Lipase 34 10 - 99 Units/L Blood 04/15/2024 8:10 PM SEAT PACK INSPECTOR 04/15/2024 8:15 PM SEAT PACK INSPECTOR Sal Arzola MD LAB BLOOD ORDERABLES Final Result Performing Organization Address [facility]/ZIP Co de Phone Number [address] [place] [address] * XR Chest 1 Vw Portable (if patient condition/safety warrant portable) (04/15/2024 5:50 PM SEAT PACK INSPECTOR) Anatomical Region Laterality Modality Body, Chest N/A Computed Radiogr aphy 04/15/2024 6:20 PM SEAT PACK INSPECTOR Narrative 04/15/2024 6:20 PM SEAT PACK INSPECTOR EXAM DESCRIPTION: XR CHEST 1 VIEW REASON [...] 6:20 PM - Electronically signed by Hermes Almonte M.D. AR T: Report ID: [id number] [place] Location: [place] [address] Procedure Note Hermes Almonte MD - 04/15/2024 [...] 6:20 PM - Electronically signed by Hermes Almonte M.D. AR T: Report ID: [id number] Reading Location: [place] [address] us Sal Arzola MD IMG XR PROCEDURES Final Re sult * POCT hCG, urine (04/15/2024 5:41 PM SEAT PACK INSPECTOR) HCG, ur, POC Negative Negative Lot Number [id number] QC Backgroud Clear Acceptable QC Control Line Acceptable Urine 04/15/2024 5:41 PM SEAT PACK INSPECTOR Sal Arzola MD POINT OF CARE TEST ORDERAB LES Final Result * (ABNORMAL) Urinalysis reflex to microscopic and culture Urine (04/15/2024 5:37 PM SEAT PACK INSPECTOR) Color, ur Straw Yellow Clarity, ur Clear Clear [facility] Specific gravity, ur 1.011 1.003 - 1.030 [facility] pH, urine 5.5 [facility] Comment: Interpretive Data U rine pH is affected by diet, medications, systemic acid-base disturbances, and renal tubular function. pH may affect urinary stone formation. For example, urine pH below 6.0 may help reduce the tendency for calcium phosphate stones and pH greater than 6.0 may reduce the tendency for uric acid stone formation. Source: [facility] Current Interpretive Data was last revised on 2017 Protein, ur ql Negative Negative [facility] Glucose, ur ql Negative Negative [facility] Ketones, ur 2+(A) Negative [facility] Bilirubin, ur Negative Negative [facility] Blood, ur 2+(A) Negative [facility] Urobilinogen, ur <2.0 <2.0 mg/dL [facility] Nitrite, ur Negative Negative [facility] Leukocyte esterase, ur Negative Negative [facility] UA reflex comment Reflex to microscopic UA will be performed. [facility] Urine 04/15/2024 5:37 PM SEAT PACK INSPECTOR 04/15/2024 5:41 PM SEAT PACK INSPECTOR Sal Arzola MD LAB MICROBIOLOGY - GENERAL ORDERABLES Final Result [facility] [address] [facility] [place] [address] * (ABNORMAL) Urinalysis, microscopic only (04/15/2024 5:37 PM SEAT PACK INSPECTOR) WBC, ur 0-5 0 - 5 /HPF RBC, ur 6-10(A) 0 - 2 /HPF [facility] Epithelial cells, squamous, ur 1-5 0 - 5 /HPF [facility] Bacteria, ur Trace(A) [facility] Culture Reflex Comment Reflex conditions for urine culture (WBC >10) not met. [facility] Urine 04/15/2024 5:37 PM SEAT PACK INSPECTOR 04/15/2024 5:41 PM SEAT PACK INSPECTOR Sal Arzola MD LAB URINE ORDERABLES Final Result Performing Organization Address [facility] de Phone Number [address] [address] * Troponin T high-sensitivity series (baseline, 2hr, 4hr, 6hr) (04/15/2024 5:34 PM SEAT PACK INSPECTOR) Pathologist [facility] Trop T hs <6 <=14 ng/L Comment: Interpretive Data For further hscTnT resources including the diagnostic algorithm and an aid in interpretation, copy and paste this link: https://nrl.testcatalog.org/show/hsTrop Current Interpretive Data last revised 2020. Blood 04/15/2024 5:34 PM SEAT PACK INSPECTOR 04/15/2024 5:41 PM SEAT PACK INSPECTOR Sal Arzola MD LAB BLOOD ORDERABLES Final Result Performing Organization Address [facility] de Phone Number [address] [address] * eGFR (04/15/2024 5:34 PM SEAT PACK INSPECTOR) [facility] eGFR >90 >=60 mL/min/1. 73 m2 Comment: [...] of Race in Diagnosing Kidney Disease, JASN 202). The CKD-EPI equation should not be used for patients with unstable renal function and has not been validated in children and those over 70. Current interpretive data was last reviewed 2021. Blood 04/15/2024 5:34 PM SEAT PACK INSPECTOR 04/15/2024 5:41 PM SEAT PACK INSPECTOR us Sal Arzola MD LAB BLOOD ORDERABLES Final Result [facility] [address] [facility] [place] [address] * (ABNORMAL) Differential, auto (04/15/2024 5:34 PM SEAT PACK INSPECTOR) Neutrophil abs 7.8(H) 1.5 - 6.5 K/cumm Imm gran abs 0.0 0.0 - 0.1 K/cumm [facility] Lymphocyte abs 4.1(H) 0.8 - 3.3 K/cumm [facility] Monocyte abs 0.7 0.2 - 0.8 K/cumm [facility] Eosinophil abs 0.2 0.0 - 0.5 K/cumm [facility] Basophil abs 0.1 0.0 - 0.1 K/cumm [facility] Neutrophil pct 60.8 % [facility] Comment: Interpretive Data Percent cell count reference ranges are not reported, since discordance with absolute values may lead to misinterpretation of CBC data. Current Interpretive Data was last revised on 2017. Imm gran pct 0.2 % [facility] Comment: Interpretive Data Percent cell count reference ranges are not reported, since discordance with absolute values may lead to misinterpretation of CBC data. Current Interpretive Data was last revised on 2017. Lymphocyte pct 32.1 % [facility] Comment: Interpretive Data Percent cell count reference ranges are not reported, since discordance with absolute values may lead to misinterpretation of CBC data. Current Interpretive Data was last revised on 2017. Monocyte pct 5.2 % [facility] Comment: Interpretive Data Percent cell count reference ranges are not reported, since discordance with absolute values may lead to misinterpretation of CBC data. Current Interpretive Data was last revised on 2017. Eosinophil pct 1.3 % [facility] Comment: Interpretive Data Percent cell count reference ranges are not reported, since discordance with absolute values may lead to misinterpretation of CBC data. Current Interpretive Data was last revised on 2017. Basophil pct 0.4 % [facility] Comment: Interpretive Data Percent cell count reference ranges are not reported, since discordance with absolute values may lead to misinterpretation of CBC data. Current Interpretive Data was last revised on 2017. Blood 04/15/2024 5:34 PM SEAT PACK INSPECTOR 04/15/2024 5:41 PM SEAT PACK INSPECTOR us Sal Arzola MD LAB BLOOD ORDERABLES Final Result [facility] [address] Department of Laboratories [place], [place] [id number] * (ABNORMAL) CBC with auto differential (04/15/2024 5:34 PM SEAT PACK INSPECTOR) WBC 12.8(H) 3.8 - 9.9 K/cumm Hgb 12.8 11.9 - 15.5 g/dL [facility] Hct 38.4 35.6 - 45.5 % [facility] Plt 433(H) 150 - 400 K/cumm [facility] MPV 8.8(L) 9.1 - 12.3 fL [facility] RBC 4.34 3.90 - 5.20 M/cumm [facility] MCV 88.5 81.3 - 96.4 fL [facility] MCH 29.5 27.1 - 33.3 pg [facility] MCHC 33.3 32.3 - 35.7 g/dL [facility] RDW CV 12.4 11.1 - 14.9 % [facility] RDW SD 39.8 35.7 - 48.1 fL [facility] NRBC abs 0.00 0.00 - 0.01 K/cumm [facility] Blood (Blood, Venous) 04/15/2024 5:34 PM SEAT PACK INSPECTOR 04/15/2024 5:41 PM SEAT PACK INSPECTOR Sal Arzola MD LAB BLOOD ORDERABLES Final Result Performing Organization Address City/[facility]/ZIP Co de Phone Number [facility] [address] [facility] Department [place] [address] * (ABNORMAL) Comprehensive metabolic panel (04/15/2024 5:34 PM SEAT PACK INSPECTOR) Sodium 138 135 - 145 mmol/L Potassium, pl 3.5 3.3 - 4.9 mmol/L [facility] Chloride 102 97 - 110 mmol/L [facility] CO2 23 22 - 32 mmol/L [facility] Anion gap 13 2 - 15 mmol/L [facility] BUN 9 6 - 25 mg/dL [facility] Creatinine 0.42(L) 0.60 - 1.10 mg/dL [facility] Glucose 98 70 - 199 mg/dL [facility] Comment: Interpretive Data Fasting glucose >/= 126 [...] classification and Diagnosis of Diabetes Diabetes Care 202; 46: S19-S40. Current interpretive data was last revised 2022. Calcium 9.9 8.5 - 10.3 mg/dL [facility] Bilirubin, total 0.2 0.1 - 1.2 mg/dL [facility] Protein, pl 7.6 6.5 - 8.5 g/dL [facility] Albumin 4.2 3.5 - 5.0 g/dL [facility] Alk phos 72 40 - 130 Units/L [facility] ALT 21 7 - 45 Units/L [facility] AST 19 10 - 45 Units/L [facility] Blood 04/15/2024 5:34 PM SEAT PACK INSPECTOR 04/15/2024 5:41 PM SEAT PACK INSPECTOR Sal Arzola MD LAB BLOOD ORDERABLES Final Result Performing Organization Address City/[facility]/ZIP Co de Phone Number [facility] [address] [facility] Department [place] [address] * ECG 12 lead (04/15/2024 5:22 PM SEAT PACK INSPECTOR) Ventricular Rate EKG/Min 120 BPM [facility] Atrial Rate 120 BPM [facility] [place]-Interval (MSEC) 158 ms [facility] QRS-Interval (MSEC) 68 ms [facility] QT-Interval (MSEC) 300 ms [facility] QTc 424 ms [facility] P [place] 45 degrees [facility] R [place] 5 degrees [facility] T [place] 24 degrees [facility] Diagnosis Sinus tachycardia Otherwise normal ECG Abnormal ECG No previous ECGs available Confirmed by BLANCA KIRBY M.D. ([id number]) on 04/17/2024 10:07:40 AM [facility] 04/15/2024 5:22 PM SEAT PACK INSPECTOR 04/17/2024 10:07 AM SEAT PACK INSPECTOR us Sal Arzola MD ECG ORDERABLES Final Resu lt [facility] from Last 3 Months Insurance [facility] [employer] Care Teams Vice President Of Nursing Relationship Specialty Start Date End Date Geena Pandya PA [address] [place] [address] PCP - General Physician Advertising Writer 05/18/24
== END 2024-07-09 13:15 | disposition home or self-care (01) ==
LOC: ANHIMG 13:18
PROVIDERS: PCP Physician Assistant; Visit Provider Obstetrics & Gynecology
DX: N64.89 Other specified disorders of breast (principal)
CPT/HCPCS: 76642; 77062; 77066; G0279